=== PATIENT | male | born 1945 | race Caucasian/White ===

== ENCOUNTER → 2018-12-10 07:04 | Outpatient (CLI) | payer MEDICARE, SELFPAY ==
--- NOTE | 2018-12-10 | DI.MRI.S_ITS ---
PROCEDURE: MR LUMBAR SPINE WO CON INDICATIONS: LUMBAR SPINE PAIN TECHNIQUE: Noncontrast sagittal T1 spin echo and T2 fast echo, sagittal STIR, axial T1 and T2 fast spin echo through the lumbar spine. In cases with scoliosis, additional coronal T2 fast spin echo may be performed. COMPARISON: [facility], CT, ANGIOGRAPHY CHEST AND ABDOMEN, 06/03/2017, 11:06. [facility], MR, L-SPINE WITHOUT CONTRAST, 07/14/2015, 8:52. FINDINGS: Image quality: Excellent. Alignment and Curvature: There is normal bony alignment. Bone Marrow: Marrow is of normal overall signal. Chronic appearing L2 compression fracture. There is also superimposed superior endplate Schmorl's node with mild adjacent marrow edema. No acute vertebral body compression fractures. Spinal Cord: Conus medullaris terminates at the L1 level. Visualized cord demonstrates normal signal and size. Paraspinous Soft Tissues: No paravertebral masses. There is dependent subcutaneous soft tissue edema from the level of L2-S1. Multiple bilateral presumed renal cysts all these findings are technically indeterminate. L1-L2: Broad-based posterior disc bulge and bilateral facet arthropathy. Mild central canal narrowing. The lateral recesses appear patent. No foraminal stenosis. L2-L3: Bilateral facet arthropathy. No canal stenosis or lateral recesses appear patent. No foraminal narrowing. L3-L4: Bilateral facet arthropathy. No central canal narrowing. Mild partial effacement of the lateral recess however this appears symmetric. No foraminal stenosis. L4-L5: Broad-based posterior disc bulge and subtle posterior annular fissure. Bilateral facet arthropathy. No residual canal stenosis, status post posterior decompression. Asymmetric narrowing of the lateral recesses, right greater than left however this is probably unchanged since 07/14/15. Mild bilateral foraminal narrowing. No definite interval change L5-S1: Broad-based posterior disc bulge and bilateral facet arthropathy. No central canal narrowing. Lateral recesses appear grossly patent. No foraminal stenoses. IMPRESSION: No residual canal stenosis at L4-L5, status post posterior decompression. Asymmetric, right greater than left subarticular narrowing at L4-L5, however unchanged appearance since prior study as above. Mild bilateral L4-L5 foraminal narrowing also unchanged. Mild chronic appearing L2 compression fracture (although new since prior study dated 06/03/17). Superimposed possibly subacute versus acute superior endplate Schmorl's node. Dictated by: Earl Dueñas M.D. on 12/10/2018 at 9:30 Approved by: Earl Dueñas M.D. on 12/10/2018 at 9:39
== END ==
PROVIDERS: PCP Physician Assistant; Visit Provider Internal Medicine
DX: M54.5 Low back pain (principal); M48.061 Spinal stenosis, lumbar region without neurogenic claudication; M48.56XA Collapsed vertebra, not elsewhere classified, lumbar region, initial encounter for fracture
CPT/HCPCS: 72148

== ENCOUNTER → 2019-01-01 11:40 | Outpatient (CLI) | payer MEDICARE, SELFPAY ==
--- NOTE | 2019-01-01 | DI.RAD.S_ITS ---
PROCEDURE: XR ANKLE RT 2V INDICATIONS: BILATERAL ANKLE PAIN TECHNIQUE: 2 views of the ankle were acquired. COMPARISON: None. FINDINGS: Bones: No fractures or dislocations. Ankle mortise is normally aligned. No suspicious bony lesions. Calcaneal spurring. Soft tissues: No tibiotalar joint effusion. Achilles tendon appears normal. Soft tissue swelling over the lateral malleolus. IMPRESSION: 1. No fracture or dislocation. 2. Soft tissue swelling over the lateral malleolus. 3. Calcaneal spurring. Dictated by: Yoli Hawthorne M.D. on 01/01/2019 at 15:53 Approved by: Yoli Hawthorne M.D. on 01/01/2019 at 15:55
--- NOTE | 2019-01-01 | DI.RAD.S_ITS ---
PROCEDURE: XR ANKLE LT 2V INDICATIONS: BILATERAL ANKLE PAIN TECHNIQUE: 2 views of the ankle were acquired. COMPARISON: None. FINDINGS: Bones: No acute fractures or dislocations. Mild cortical irregularity of the lateral malleolus is probably sequelae of old injury. Ankle mortise is normally aligned. No suspicious bony lesions. Soft tissues: No tibiotalar joint effusion. Achilles tendon appears normal. IMPRESSION: No fracture or dislocation. Dictated by: Yoli Hawthorne M.D. on 01/01/2019 at 15:52 Approved by: Yoli Hawthorne M.D. on 01/01/2019 at 15:53
== END ==
PROVIDERS: PCP Physician Assistant; Visit Provider Physician Assistant
DX: M25.572 Pain in left ankle and joints of left foot (principal); M25.571 Pain in right ankle and joints of right foot; M77.31 Calcaneal spur, right foot; M79.89 Other specified soft tissue disorders
CPT/HCPCS: 73600

== ENCOUNTER → 2019-01-16 09:43 | Outpatient (CLI) | payer MEDICARE, SELFPAY ==
--- NOTE | 2019-01-16 | DI.RAD.S_ITS ---
PROCEDURE: XR FOOT RT MIN 3V INDICATIONS: RT FOOT PAIN TECHNIQUE: Pre-views of the foot were acquired. COMPARISON: None. FINDINGS: Bones: No fractures or dislocations. No suspicious bony lesions. Soft tissues: No tibiotalar joint effusion. Achilles tendon appears normal. IMPRESSION: A definite source of right foot pain is not found. Incidental is made of a small plantar fascia insertion spur at the posterior calcaneus. Dictated by: Reinier Randle M.D. on 01/16/2019 at 12:37 Approved by: Reinier Randle M.D. on 01/16/2019 at 12:38
== END ==
PROVIDERS: PCP Physician Assistant; Visit Provider Internal Medicine
DX: M79.671 Pain in right foot (principal); M77.31 Calcaneal spur, right foot; G89.4 Chronic pain syndrome
CPT/HCPCS: 73630

== ENCOUNTER → 2019-01-22 14:50 | Outpatient (CLI) | payer MEDICARE, SELFPAY ==
--- NOTE | 2019-01-22 | DI.US.S_ITS ---
PROCEDURE: US PERIPH VENOUS LOW EXTREM RT INDICATIONS: PAIN IN RIGHT LOWER EXTREMITY TECHNIQUE: Real-time imaging, as well as color and pulse Doppler interrogation, were performed of the lower extremity deep veins from the inguinal ligament to the popliteal fossa. COMPARISON: None. FINDINGS: The common femoral, femoral and popliteal veins are normally compressible, and free of intraluminal thrombus. Color and pulse Doppler demonstrate normal phasic intraluminal flow. There is normal augmentation response to distal compression maneuver. IMPRESSION: No deep venous thrombosis in the right lower extremity. Dictated by: Yoli Hawthorne M.D. on 01/22/2019 at 17:53 Approved by: Yoli Hawthorne M.D. on 01/22/2019 at 17:53
== END ==
PROVIDERS: PCP Physician Assistant; Visit Provider Internal Medicine
DX: M79.604 Pain in right leg (principal)
CPT/HCPCS: 93971

== ENCOUNTER → 2019-02-11 09:37 | Outpatient (CLI) | payer MEDICARE, SELFPAY ==
--- NOTE | 2019-02-11 | DI.US.S_ITS ---
PROCEDURE: US ABDOMEN COMPLETE INDICATIONS: ABDOMINAL PAIN TECHNIQUE: Real-time scanning was performed of the abdominal and retroperitoneal organs, with image documentation. COMPARISON: [facility], US, ABDOMEN COMPLETE, 06/03/2017, 10:57. FINDINGS: Liver: Within the region of the shahana hepatis, there is ill-defined hyperechoic focus measuring 3.3 x 1.4 x 1.7 cm. No definite internal vascularity. Gallbladder: Multiple echogenic mobile gallstones are present measuring up to 1 cm. There is borderline wall thickening measuring 3-4 mm. However no sonographic Daley sign or bile duct dilatation Biliary ducts: Intrahepatic bile ducts are non-dilated. Extrahepatic bile duct caliber measures 4 mm. Normal is 6-7 mm or less in diameter, or 10 mm or less post-cholecystectomy. Pancreas: Visualized portions of the pancreas are mildly heterogeneous, nonspecific. Pancreatic duct measures 2 mm. Spleen: Spleen is normal in size and homogeneous in echotexture. Kidneys: Kidneys are normal in size and echotexture. Right kidney measures 11.6 cm long; left kidney measures 11.9 cm long. No hydronephrosis or nephrolithiasis. No solid masses. Right renal cyst measuring 1.2 cm with mural calcification. 1.8 x 2.9 x 1.9 cm hypoechoic lesion involving the left kidney at the hilum/renal pelvis with associated calcifications. Aorta: Visualized aorta is normal in caliber at less than 3 cm. Iliacs: Scattered by shadowing bowel gas IVC: Intrahepatic inferior vena cava is patent. Miscellaneous: No free abdominal fluid. IMPRESSION: Cholelithiasis. Borderline gallbladder wall thickening however this finding is technically age indeterminate. No sonographic Daley's sign or bile duct dilatation is seen although recommend correlation with LFTs. Chronic or acute on chronic cholecystitis cannot be excluded. Hyperechoic region in the region of the shahana hepatis, possibly focal fatty infiltration versus hemangioma. This could be monitored with long-term ultrasound surveillance at 6 month intervals for 2 years to document stability. Complex bilateral renal cysts. Given the absence of any prior comparison studies and that these may be new since the prior study, recommend continued surveillance with 6 month ultrasound to document stability. If clinically warranted, dedicated cross-sectional imaging with CT could be considered. Dictated by: Earl Dueñas M.D. on 02/11/2019 at 12:06 Approved by: Earl Dueñas M.D. on 02/11/2019 at 12:16
== END ==
PROVIDERS: PCP Physician Assistant; Visit Provider Internal Medicine
DX: R10.9 Unspecified abdominal pain (principal); N28.1 Cyst of kidney, acquired; K80.20 Calculus of gallbladder without cholecystitis without obstruction; M48.061 Spinal stenosis, lumbar region without neurogenic claudication
CPT/HCPCS: 76700

== ENCOUNTER → 2019-02-23 10:58 | Outpatient (CLI) | payer MEDICARE, SELFPAY ==
--- NOTE | 2019-02-23 | DI.US.S_ITS ---
PROCEDURE: US PERIP VENOUS LOW EXTREM RT INDICATIONS: EDEMA TECHNIQUE: Real-time imaging, as well as color and pulse Doppler interrogation, were performed of the lower extremity deep veins from the inguinal ligament to the popliteal fossa. COMPARISON: [facility], , [facility] VENOUS LOW EXTREM RT, 01/22/2019, 16:11. FINDINGS: The common femoral, femoral and popliteal veins are normally compressible, and free of intraluminal thrombus. Color and pulse Doppler demonstrate normal phasic intraluminal flow. There is normal augmentation response to distal compression maneuver. IMPRESSION: No evidence of DVT in the visualized right lower extremity veins. Dictated by: Juan Pérez M.D. on 02/23/2019 at 12:22 Approved by: Juan Pérez M.D. on 02/23/2019 at 12:22
[2019-02-23 13:08] LABS: Erythrocyte Sedimentation Rate 5 MM/HR (0-15)
[2019-02-23 13:43] LABS: D Dimer < 200 ng/mL (<230)
[2019-02-23 15:52] LABS: BUN Creatinine Ratio 18.3 (6-22); Blood Urea Nitrogen 11 mg/dL (9-20); Calcium 9.5 mg/dL (8.4-10.2); Carbon Dioxide 29 mmol/L (22-32); Chloride 105 mmol/L (98-107); Estimated Glomerular Filt Rate > 60.0 mL/min (>60); Glucose 89 mg/dL (80-110); HEMOLYSIS < 15 (0-50); Potassium 4.6 mmol/L (3.4-5.1); Sodium 142 mmol/L (137-145); Uric Acid 3.2 mg/dL (3.5-8.5)
[2019-02-23 15:53] LABS: C-Reactive Protein Quant < 0.5 mg/dL (<1.0)
== END ==
PROVIDERS: PCP Internal Medicine; Visit Provider Internal Medicine
DX: M79.671 Pain in right foot (principal); R60.9 Edema, unspecified
CPT/HCPCS: 36415; 80048; 84550; 85379; 85651; 86140; 93971

== ENCOUNTER → 2019-03-10 11:56 | Outpatient (CLI) | payer MEDICARE, SELFPAY ==
--- NOTE | 2019-03-10 12:02 | DI.CT.S_ITS ---
PROCEDURE: CT ABDOMEN PELVIS W CON INDICATIONS: Renal cysts. Right upper quadrant abdominal pain TECHNIQUE: After the administration of oral and intravenous contrast, 5 mm thick sections acquired from the diaphragms to the symphysis. 5 mm thick coronal and sagittal reformats were performed. For radiation dose reduction, the following was used: automated exposure control, adjustment of mA and/or kV according to patient size. COMPARISON: [facility], MR, L-SPINE WITHOUT CONTRAST, 07/14/2015, 8:52. [facility], CT, KIDNEY/ URETER/BLADDER, 09/12/2016, 7:22. [facility], US, US ABDOMEN COMPLETE, 02/11/2019, 10:04. [facility], CT, CT CHEST WO CONTRAST, 11/27/2016, 10:00 AM. [facility], CT, ANGIOGRAPHY CHEST AND ABDOMEN, 06/03/2017, 11:06. [facility], CT, CT ANGIO CHEST ABD, 10/28/2016, 2:26. [facility], CT, THORAX WITHOUT CONTRAST, 04/26/2017, 16:04. FINDINGS: Image quality: Excellent. ABDOMEN: Lung bases: There is a 1.5 cm nodule in the right lung base, stable, likely benign. Heart size is normal. Trace pericardial effusion may be physiological. There is a small hiatal hernia. Solid organs: There is mild hepatic steatosis. Liver is normal in size and enhancement. Gallbladder contains gallstones. No collateral thickening or pericholecystic fluid. Biliary system is non-dilated. Pancreas enhances normally. Spleen is normal in size and enhancement. No adrenal nodules. Kidneys are normal in size and enhancement, without hydronephrosis. Multiple nonobstructive renal calculi are again noted. Indeterminate low density nodules in kidneys are most likely cysts. Peritoneum and bowel: Stomach, small bowel, and colon loops are normal in caliber and wall thickness. Normal appendix. There are numerous colonic diverticula. No free fluid or air. Nodes and vessels: There is a matched in the anterior abdominal wall consistent with prior ventral hernia repair. No retroperitoneal or mesenteric adenopathy. Aorta and inferior vena cava are normal in caliber. There is moderate atherosclerotic calcification. Miscellaneous: No ventral hernias. PELVIS: Genitourinary: Bladder wall appears mildly thickened. Calcifications are again noted in prostate. Miscellaneous: No inguinal hernias or adenopathy. Bones: No suspicious bony lesions. Moderate chronic compression fracture of L2 vertebral body. 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 IMPRESSION: 1. Cholelithiasis. No CT findings to suggest acute cholecystitis. 2. Bilateral nonobstructive renal calculi. 3. Bilateral low-density renal nodules are most likely cysts. 4. Small hiatal hernia. 5. Diverticulosis without acute diverticulitis. 6. Mild bladder wall thickening. Differential diagnoses include bladder outlet obstruction versus mild cystitis. 7. Mild chronic L2 vertebral body compression fracture. 8. Stable right lower lobe lung nodule. Dictated by: Yoli Hawthorne M.D. on 03/10/2019 at 16:14 Approved by: Yoli Hawthorne M.D. on 03/10/2019 at 17:27
== END ==
PROVIDERS: PCP Internal Medicine; Visit Provider Internal Medicine
DX: R10.11 Right upper quadrant pain (principal); N28.1 Cyst of kidney, acquired; K44.9 Diaphragmatic hernia without obstruction or gangrene; K76.0 Fatty (change of) liver, not elsewhere classified; K80.20 Calculus of gallbladder without cholecystitis without obstruction; K57.90 Diverticulosis of intestine, part unspecified, without perforation or abscess without bleeding; N20.0 Calculus of kidney; R91.1 Solitary pulmonary nodule; M48.56XA Collapsed vertebra, not elsewhere classified, lumbar region, initial encounter for fracture
CPT/HCPCS: 74177; Q9967

== ENCOUNTER → 2019-04-03 08:52 | Outpatient (CLI) | payer MEDICARE, SELFPAY ==
--- NOTE | 2019-04-03 | DI.NM.S_ITS ---
PROCEDURE: NM HIDA WITH CCK PHARMACEUTICAL: 5.5 mCi Tc-99m mebrofenin IV; 1.7 mcg CCK IV. INDICATIONS: Right upper quadrant pain TECHNIQUE: Following intravenous administration of Tc-99m mebrofenin, sequential anterior abdominal images were obtained. To evaluate the contractile response of the gallbladder in response to Cholecystokinin (CCK), sincalide (0.02 ?g/kg) was administered by slow intravenous infusion approximately 60 minutes after the administration of the radiopharmaceutical. Sequential imaging was continued for 30 minutes after the start of CCK infusion. Gallbladder ejection fraction was calculated. COMPARISON: [facility], US, US ABDOMEN COMPLETE, 02/11/2019, 10:04. [facility], CT, CT ABDOMEN PELVIS W CON, 03/10/2019, 12:48. FINDINGS: Biliary scan: There is normal tracer uptake and excretion by the liver. There is normal visualization of the intrahepatic ducts, common bile duct, and gallbladder. There is normal tracer transit into the duodenum. CCK stimulation: There is normal contractile response of the gallbladder to CCK infusion. The calculated gallbladder ejection fraction is 90%; normal values are above 35%. IMPRESSION: 1. Normal filling of gallbladder. No evidence for acute cholecystitis. 2. Normal contractile response of gallbladder to CCK stimulation. Dictated by: Yoli Hawthorne M.D. on 04/03/2019 at 11:59 Approved by: Yoli Hawthorne M.D. on 04/03/2019 at 12:03
== END ==
PROVIDERS: PCP Internal Medicine; Visit Provider Internal Medicine
DX: R10.11 Right upper quadrant pain (principal)
CPT/HCPCS: 78227; A9537; J2805

== ENCOUNTER → 2019-04-16 10:15 | Outpatient (CLI) | payer MEDICARE, SELFPAY ==
[2019-04-16 11:50] LABS: HEMOLYSIS < 15 (0-50); Iron 92 ug/dL (49-181)
[2019-04-16 12:01] LABS: Percent Iron Saturation 26 % (20-50); Total Iron Binding Capacity 357 ug/dL (261-462); Transferrin 269 mg/dL (206-381)
== END ==
PROVIDERS: PCP Internal Medicine; Visit Provider Internal Medicine
DX: D75.9 Disease of blood and blood-forming organs, unspecified (principal)
CPT/HCPCS: 36415; 82728; 83540; 83550

== ENCOUNTER → 2019-07-06 09:56 | Outpatient (CLI) | payer MEDICARE, SELFPAY ==
--- NOTE | 2019-07-06 | DI.RAD.S_ITS ---
PROCEDURE: XR KUB INDICATIONS: Calculus of kidney TECHNIQUE: One view of the abdomen acquired. COMPARISON: [facility], CT, CT ABDOMEN PELVIS W CON, 03/10/2019, 12:48. [facility], CR, KUB XRAY (1 VIEW ABDOMEN), 10/02/2016, 10:00. FINDINGS: Surgical changes and devices: None. Bowel: Bowel gas pattern is normal. Soft tissues: No suspicious new abdominal calcifications. A previously identified calcification seen on CT scan in 03/10/19 at the upper third collecting system of the left kidney is again noted measuring 4 x 9 mm. Visualized solid organ contours appear normal in size. Bones: No suspicious bony lesions. IMPRESSION: The amount of bowel gas and stool within the abdomen and pelvis is mildly increased from the comparison study in 2015, which reduces the ability to detect small new calcifications. A previously present left upper renal collecting system calculus seen by CT scanning again be seen by plain film imaging and measures approximately 4 x 9 mm. Dictated by: Reinier Randle M.D. on 07/06/2019 at 10:11 Approved by: Reinier Randle M.D. on 07/06/2019 at 10:14
== END ==
PROVIDERS: PCP Internal Medicine; Visit Provider Specialist
DX: N20.0 Calculus of kidney (principal)
CPT/HCPCS: 74018

== ENCOUNTER → 2019-11-03 09:36 | Outpatient (CLI) | payer MEDICARE, SELFPAY ==
--- NOTE | 2019-11-03 | DI.RAD.S_ITS ---
PROCEDURE: XR KNEE STANDING BI INDICATIONS: right knee pain TECHNIQUE: AP weight bearing view of the of both knees. COMPARISON: [facility], CR, XR KNEE RT 3V, 11/03/2019, 9:41. FINDINGS: Bones: No acute fractures or dislocations. Mild bilateral symmetric joint space osteophyte formation with weightbearing. Soft tissues: No knee joint effusions. No suspicious soft tissue calcification. IMPRESSION: Mild degenerative joint disease. Dictated by: Yoli Hawthorne M.D. on 11/03/2019 at 11:31 Approved by: Yoli Hawthorne M.D. on 11/03/2019 at 11:39
--- NOTE | 2019-11-03 | DI.RAD.S_ITS ---
PROCEDURE: XR KNEE RT 3V INDICATIONS: right knee pain TECHNIQUE: 3 views of the knee were acquired. COMPARISON: [facility], CR, XR KNEE STANDING BI, 11/03/2019, 9:44. FINDINGS: Bones: No fractures or dislocations. No suspicious bony lesions. Soft tissues: No joint effusion. Vascular calcifications consistent with arthrosclerosis. Calcification in the area of MCL likely sequelae of remote injury. IMPRESSION: 1. No acute osseous injuries. 2. Suspect remote MCL injury. Dictated by: Yoli Hawthorne M.D. on 11/03/2019 at 11:16 Approved by: Yoli Hawthorne M.D. on 11/03/2019 at 11:22
== END ==
PROVIDERS: PCP Internal Medicine; Visit Provider Internal Medicine
DX: M25.561 Pain in right knee (principal); M17.11 Unilateral primary osteoarthritis, right knee
CPT/HCPCS: 73562; 73565

== ENCOUNTER 2019-12-16 10:34 | Observation (INO) | payer MEDICARE, SELFPAY ==
[2019-12-16] VITALS (11 sets, daily range): BP systolic 151–228; BP diastolic 54–88; PULSE 45–80; RESP 16–22; TEMP 36.5–37.4; O2SAT 94–100; BMI 30.4
--- NOTE | 2019-12-16 10:48 | DI.CT.S_ITS ---
PROCEDURE: CT ABDOMEN PELVIS W CON INDICATIONS: abdominal pain, lower abd more on right, vomiting x 2 days TECHNIQUE: After the administration of intravenous contrast, 5 mm thick sections acquired from the diaphragm to the symphysis. 5 mm coronal and sagittal reformats were acquired. For radiation dose reduction, the following was used: automated exposure control, adjustment of mA and/or kV according to patient size. COMPARISON: None. FINDINGS: Image quality: Excellent. ABDOMEN: Lung bases: Lung bases are clear. Heart size is normal. Solid organs: Liver is normal in size and enhancement. Gallbladder contains several 7 mm gallstones, none of which have dense calcification, and no biliary distention is associated. Biliary system is non dilated. Pancreas enhances normally. Spleen is normal in size and enhancement. No adrenal nodules. Kidneys demonstrate normal size and enhancement, without hydronephrosis. Bilateral renal collecting system calculi are present, with the largest renal calculi identified at the upper third collecting system of the left kidney, and no renal cortical inflammation is associated. Peritoneum and bowel: Bowel loops demonstrate normal wall thickness and caliber. No free fluid or air. Nodes and vessels: No retroperitoneal or mesenteric adenopathy by size criteria. Aorta and inferior vena cava are normal in size. Miscellaneous: No ventral hernias. PELVIS: Genitourinary: Bladder wall thickness is normal. Miscellaneous: No inguinal hernias or adenopathy. Extensive sigmoid diverticulosis without acute diverticulitis. A normal or abnormal appendix could not be located. Bones: No suspicious bony lesions. No vertebral body compression fractures. IMPRESSION: 1. Gallstones present within the gallbladder lumen are not densely calcified, and measure up to approximately 7 mm in maximal dimension. Biliary distention is not associated. The gallbladder does not appear inflamed. 2. Bilateral densely calcified renal collecting system calculi are present, measuring up to 8 x 10 mm at the upper third collecting system of the left kidney, but no urinary tract obstruction is found and a ureteral stone is not suspected. 3. A normal or abnormal appendix could not be seen, sigmoid diverticulosis is present without acute diverticulitis. Dictated by: Reinier Randle M.D. on 12/16/2019 at 11:36 Approved by: Reinier Randle M.D. on 12/16/2019 at 11:40
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
[2019-12-16 10:57] LABS: Add Manual Diff / Slide Review NO; Basophils Absolute Auto 0 /uL (0-100); Basophils Percent Auto 0.5 % (0-2); Eosinophils Absolute Auto 0 /uL (0-450); Eosinophils Percent Auto 0.2 % (2-4); Hematocrit 48.4 % (41-53); Hemoglobin 16.8 g/dL (13.5-17.5); Lymphocytes Absolute Auto 900 /uL (1100-4500); Lymphocytes Percent Auto 10.6 % (25-40); Mean Corpuscular HGB Conc 34.7 % (30-36); Mean Corpuscular Hemoglobin 31.8 PG (26-34); Mean Corpuscular Volume 91.5 fL (80-100); Monocytes Absolute Auto 500 /uL (0-900); Neutrophils Absolute Auto 7500 /uL (1500-7000); Neutrophils Percent Auto 83.7 % (50-75); Platelet Count 280 X10^3/uL (150-400); Red Cell Distribution Width 13.8 % (11.6-14.8)
[2019-12-16 11:08] LABS: Alanine Aminotransferase 22 IU/L (<50); Albumin 4.7 g/dL (3.5-5.0); Albumin Globulin Ratio 1.4 (1.0-2.8); Alkaline Phosphatase 104 U/L (38-126); Aspartate Aminotransferase 35 IU/L (17-59); BUN Creatinine Ratio 26.7 (6-22); Bilirubin Total 1.3 mg/dL (0.2-1.3); Blood Urea Nitrogen 16 mg/dL (9-20); Calcium 9.7 mg/dL (8.4-10.2); Carbon Dioxide 28 mmol/L (22-32); Chloride 106 mmol/L (98-107); Estimated Glomerular Filt Rate > 60.0 mL/min (>60); Globulin 3.4 g/dL (1.7-4.1); Glucose 117 mg/dL (80-110); HEMOLYSIS 35 (0-50); Lactate (Lactic Acid) 1.6 mmol/L (0.7-2.1); Lipase 77 U/L (23-300); Potassium 3.7 mmol/L (3.4-5.1); Sodium 144 mmol/L (137-145); Total Protein 8.1 g/dL (6.3-8.2)
[2019-12-16] MEDS: SODIUM CHLORIDE 0.9% 1,000 ML 1000 ML IV ×2 (11:15→14:23)
[2019-12-16] MEDS: ONDANSETRON 4 MG/2 ML INJ IV ×3 (11:15→23:24)
[2019-12-16] MEDS: HYDROMORPHONE 0.5 MG INJ IV ×3 (11:40→16:42)
--- NOTE | 2019-12-16 12:05 | DI.US.S_ITS ---
PROCEDURE: US ABDOMEN LIMITED INDICATIONS: PAIN TECHNIQUE: Real-time focused scanning was performed of the abdomen, with image documentation. COMPARISON: [facility], CT, CT ABDOMEN PELVIS W CON, 12/16/2019, 11:14. FINDINGS: 2 mobile gallstones are seen within the gallbladder. Sludge is also seen within the gallbladder. The gallbladder wall is minimally thickened at 3.7 mm. There is minimal pericholecystic fluid seen. The sonographic Daley sign is positive. There is no biliary dilatation, the common bile duct measures 6 mm. The liver is normal in size and demonstrates no focal lesions. The pancreas is not seen. IMPRESSION: These imaging findings are suspicious for cholecystitis, with gallstones and sludge, minimal gallbladder wall thickening, minimal pericholecystic fluid, and a positive sonographic Daley sign. Dictated by: Arnaldo Colbert M.D. on 12/16/2019 at 13:18 Approved by: Arnaldo Colbert M.D. on 12/16/2019 at 13:19
[2019-12-16] MEDS: METOCLOPRAMIDE 10 MG/2 ML INJ IV (12:18)
[2019-12-16 13:14] LABS: Calcium Oxalate Crystals Urine Few; RBC Urine 1-5/HPF (0-5/HPF); Squamous Epithelial Cell Urine 0-1 /HPF (0-5/HPF); WBC Urine 1-5/HPF (0-5/HPF)
[2019-12-16 13:15] LABS: Amorphous Sediment Urine 1+; Bacteria Urine Occasional (0-1); Culture Indicated Urine Specimen Cultured; Mucus Urine 1+ (Negative)
[2019-12-16 13:33] LABS: Creatine Kinase 130 U/L (55-170)
[2019-12-16 13:46] LABS: Troponin I < 0.012 ng/mL (0.01-0.034)
[2019-12-16 13:49] LABS: CKMB % Relative Index 1.1 % (1.5-5.0); Creatine Kinase MB 1.47 ng/mL (<2.37)
[2019-12-16] MEDS: PIPERACILLIN-TAZO 3.375 GM/50 ML FROZ.PIGGY IV ×2 (14:22→21:48)
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
--- NOTE | 2019-12-16 16:39 | PC.NURSE ---
Spoke w/ Dr. Arizmendi, changed orders for pain medication. Receiving RN made aware.
--- NOTE | 2019-12-16 17:11 | PC.NURSE ---
[place] shift note: Patient admitted to room 203 fom ED, awake, alert, and pleasant. Ambulated from WC to bed with steady gait. Tolerating clear liquid diet, abdomen soft, active BS, and tender to epigastric region. Afebrile. Oriented to room, environment and plan of care. Call light within reach.
[2019-12-16] MEDS: SODIUM CHLORIDE 0.9% 1,000 ML 150 ML IV (17:22)
[2019-12-16] MEDS: OXYCODONE IR 5 MG TABLET 15 MG PO ×2 (17:22→23:20)
[2019-12-17] VITALS (20 sets, daily range): BP systolic 153–184; BP diastolic 50–82; PULSE 54–70; RESP 10–18; TEMP 36.2–36.9; O2SAT 90–98; BMI 30.4
--- NOTE | 2019-12-17 | PATH_ITS ---
[facility] Accession Number: [id number] . 01 Material submitted: . gallbladder - GALLBLADDER AND CONTENTS . 01 Clinical history: . N/V X2 DAYS . 02 Diagnosis: Gallbladder and Contents: Acute and chronic cholecystitis and cholelithiasis. One cystic duct lymph node with a slightly distorted architecture. Hemepath consultation pending; those results will be reported as an addendum. MRV 12/21/2019 1221 Local . 02 Electronically signed: . Romy Loving MD, Pathologist NPI- [id number] . 01 Gross description: . Received in formalin, labeled gallbladder + contents, is an intact gallbladder (length-9.8 cm, diameter-4.0 cm) with coombs-white smooth shiny serosa and a patent cystic duct. A possible 0.7 x 0.5 x 0.4 cm lymph node is identified. The lumen contains brown-green turbid gelatinous bile and multiple brown friable calculi (1.7 x 1.2 x 0.7 cm in aggregate). The mucosa is luu, smooth and flat. The wall is up to 0.1 cm thick. No nodules, masses or lesions are identified. Section code: (A1) cystic duct resection margin and two serial sections from the body; (A2) two longitudinal sections from the fundus; (A3) one bisected possible lymph node. ([id number]) /MRV 12/18/2019 1036 Local . 02 Pathologist provided ICD-10: K81.2 . 02 CPT . 072955 Performed at: [address] [facility], [place], [place] [id number] MD Terence Thornton MD Phone: [phone] Performed at: [address] [facility] [place] [address] [place] [id number] MD Lana Lopez MD Phone: [phone]
--- NOTE | 2019-12-17 01:23 | PC.NURSE ---
Addendum entered by Malena Lizama R.N. 12/17/19 06:07: Has slept most of shift. Does complain of nausea this morning but without emesis; medicated with Zofran. Up to bathroom with SBA and voided 225cc dark kelly urine. Passed flatus but no BM. Addendum entered by Malena Lizama R.N. 12/17/19 03:36: Medicated with Oxycodone for complaint of 8/10 back pain and 6/10 abdominal pain. Original Note: 2330 Patient is alert and oriented. Breath sounds CTA with RA sat of 95%. HRR but bradycardic in 50's. BP elevated at 151/64. Complains of nausea so medicated with Zofran after calling Dr Arizmendi for change in frequency. BT present and is passing flatus. Abdomen is tender with diffuse tenderness which is greater in upper quads. Does complain of 8/10 chronic back pain so medicated with Oxycodone. Has been voiding per urinal; denies dysuria, frequency or urgency. Able to turn self in bed. When out of bed is provided SBA for safety. Wearing bilateral calf SCD's. Does have chronic bilateral foot tingling. Is NPO after 0000 except for meds; patient verbalizes understanding. Fall risk score is moderate; bed alarm is activated.
[2019-12-17] MEDS: SODIUM CHLORIDE 0.9% 1,000 ML 150 ML IV (02:32)
[2019-12-17] MEDS: OXYCODONE IR 5 MG TABLET 15 MG PO ×3 (03:33→16:27)
[2019-12-17] MEDS: PIPERACILLIN-TAZO 3.375 GM/50 ML FROZ.PIGGY IV (05:50)
[2019-12-17] MEDS: ONDANSETRON 4 MG/2 ML INJ IV ×2 (05:58→09:15)
[2019-12-17 06:01] LABS: Alanine Aminotransferase 17 IU/L (<50); Albumin 3.3 g/dL (3.5-5.0); Albumin Globulin Ratio 1.2 (1.0-2.8); Alkaline Phosphatase 61 U/L (38-126); Aspartate Aminotransferase 26 IU/L (17-59); BUN Creatinine Ratio 21.7 (6-22); Bilirubin Total 0.8 mg/dL (0.2-1.3); Blood Urea Nitrogen 13 mg/dL (9-20); Calcium 8.3 mg/dL (8.4-10.2); Carbon Dioxide 25 mmol/L (22-32); Chloride 109 mmol/L (98-107); Estimated Glomerular Filt Rate > 60.0 mL/min (>60); Globulin 2.7 g/dL (1.7-4.1); Glucose 98 mg/dL (80-110); HEMOLYSIS 35 (0-50); Potassium 3.7 mmol/L (3.4-5.1); Sodium 140 mmol/L (137-145)
[2019-12-17] MEDS: LACTATED RINGERS 1,000 ML 42 ML IV ×2 (07:20→09:00)
[2019-12-17] MEDS: CELECOXIB 200 MG CAPSULE 400 MG PO (07:26)
[2019-12-17] MEDS: GABAPENTIN 300 MG CAPSULE PO (07:26)
[2019-12-17] MEDS: ACETAMINOPHEN 325 MG TABLET 975 MG PO (07:26)
--- NOTE | 2019-12-17 07:29 | PM.PREOP ---
Pre-operative Note Interval Note History & Physical reviewed/Exam performed by Physician: Yes Changes to H&P: No
--- NOTE | 2019-12-17 07:29 | SUR.HOLD ---
Pt nauseated Dr. Ambrose aware, still wanted po meds given, pt medicated as instructed.
--- NOTE | 2019-12-17 07:43 | PC.NURSE ---
Addendum entered by Latricia Mackay R.N. 12/17/19 12:34: MS/GI/PAIN - pt sat up to dangle position for lunch, denies nausea, ate approx 25%, stated I feel full, stood w/standby assist to void, declined chair, ret to bed to nap, stated the earlier oxycodone was providing adequate relief and would like to nap. Addendum entered by Latricia Mackay R.N. 12/17/19 11:43: /PAIN/IV - Per Dr. Arizmendi, amaya the ivf, pt reports pain continues at 7 on scale 0/10 and earlier percolone only provided minimal relief, pt stood at bedside and voided, when 02 removed 02 sat 86%, replaced 4l and 96%, enc db and 02 reduced to 2l, given 15mg po oxycodone with juice and crackers. Addendum entered by Latricia Mackay R.N. 12/17/19 11:05: POST OP ARRIVAL 1020 - pt is awake, drowsy, was given 5mg po oxycodone in pacu prior to transport, states on arrival his back and abd discomfort is 7 on scale 0/10, repositioned l side for comfort, 02 90% ra, was on 4L 02 prior to transport and replaced 4l [place] [id number]%, steristrips open to air, cdi. Original Note: AM NOTE - 0700 pacu arrived and pt was transported to surgery.
--- NOTE | 2019-12-17 07:54 | SUR.OPER ---
Supine on padded OR bed, head on pillow, safety belt at thigh, left arm padded and tucked at side. Right arm secured on padded arm oard <90 degrees abduction. Legs uncrossed. Padded footboard in place. Tape over blanket to secure lower legs.
[2019-12-17] MEDS: BUPIVACAINE 0.25% (PF) VIAL 30 ML INJ (08:00)
--- NOTE | 2019-12-17 09:12 | PM.OP.1 ---
Operative Date/Time/Diagnoses Date of procedure: 12/17/19 Time of procedure: 09:12 Pre-op diagnosis: acute cholecystitis Post-op diagnosis: same Procedure & Clinicians Procedure: Laparoscopic cholecystectomy Same procedure as scheduled: Yes Indications: 74-year-old man presented with 2 days of right upper quadrant pain nausea and ultrasound demonstrates acute cholecystitis. Surgeon: Celso Arizmendi Operative Notes Findings: Acute cholecystitis with fat stranding and distended gallbladder Specimen(s): none sent Estimated Blood Loss (mL): 20 Procedure in detail: The patient was brought to the operating room placed supine on the table. Bilateral lower extremity compression devices were applied. General anesthesia was induced and they were intubated with an endotracheal tube. They received 3.75 g of Zosyn prior to skin incision. A time-out was performed to ensure the correct patient procedure necessary equipment within the operating room. They were then prepped and draped in the usual sterile fashion. Infraumbilical incision was made the umbilical stalk was grasped and elevated and the fascia was sharply incised. The abdomen was entered atraumatically. A 10 mm trocar was then placed into the abdomen. Pneumoperitoneum was established. The laparoscopic camera was inserted into the abdomen inspection was made that demonstrated no evidence of injury upon entry. We then placed our working ports the 1st 5 mm port high in the epigastrium and then 2 in the right upper quadrant. The gallbladder was grasped and retracted over the liver and grasped laterally by the fundus. It was acutely inflamed and use the spinal needle to decompress it in order to grasp it better. There was also fair amount of stranding around the triangle of ELOISE The triangle of Calot was exposed meticulously. The triangle of calot was then skeletonized using hook electrocautery and demonstrated the cystic duct clearly entering the gallbladder the cystic artery and the liver and in the background. With the critical view of safety established the cystic duct was clipped twice proximally and once distally and then sharply divided and the cystic artery was taken in the same fashion. Next the gallbladder was removed from the liver bed using electro cautery. The liver bed was then inspected for hemostasis and this was achieved. The abdomen was irrigated with sterile saline and inspection was made that showed the clips in good position. The specimen was removed using Endo-Catch. The abdomen was desufflated. The the fascia of the umbilicus was closed with 0 Vicryl in a [id number] fashion. Skin incisions were irrigated and closed with 4-0 Monocryl. The wounds were sealed with Dermabond. Patient emerged from general anesthesia was extubated and transferred to the postoperative care unit missed stable condition. The sponge and instrument count at the end of the operation was correct. Complications: none Post-operative Condition: stable Disposition: Acute Care
[2019-12-17] MEDS: HYDROMORPHONE 2 MG INJ IV ×2 (09:13→09:26)
[2019-12-17] MEDS: OXYCODONE IR 5 MG TABLET PO (09:45)
[2019-12-17] MEDS: LACTATED RINGERS 1,000 ML 120 ML IV (10:31)
--- NOTE | 2019-12-17 11:52 | CM.IDA ---
Discharge Planning/Care Management CM Discharge Assessment Start: 12/17/19 11:43 Freq: Status: Active Protocol: Document 12/17/19 11:43 KINSEY (Rec: 12/17/19 11:52 KINSEY [id number]) Discharge Planning Assessment Assigned Plant Anatomist RISSA Reyna DPOA/Assigned Designee Name Sendy Tariq, spouse Contact Information [phone] Advance Directives? No Prior Living Arrangements House Household Members spouse Type of transporation used prior to Drives own vehicle admit Independent with ADL's Yes Is patient alert and oriented? Yes Comment Notes indicate pt is indp. at baseline but does have bilateral foot tingling, SBA indicated d/t moderate fall risk Barriers to Discharge No Comment Pt is in the OR today for zahraa cortes w/ Dr Arizmendi. PCP: Unknown Payer: [employer] Reviewed chart and spoke w/ PRIYANK Rome; it is likely that there will be no barriers to safe return home w/spouse to assist once pt is medically cleared after surgery. Pt is indp at baseline. DC Planning team will plan to assess DC needs further once pt returns to the acute care floor. RISSA Alvarez Discharge Plan Home Transportation Arrangement Family Referrals Initiated None needed Additional Comment Will assess further once pt returns to the acute care floor Review Status In Process
--- NOTE | 2019-12-17 17:47 | PC.NURSE ---
Assumed care of pt at 1500. Pt resting in bed during bedside hand-off. Steri-strips to abd c/d/i. MD in for rounding. D/C to home orders placed. Discharge completed by float RN including verbal and written education. IV removed. Pt dressed. arrived at approx 1740. Pt escorted off unit by this RN to private vehicle. Pt left in stable condition with all personal belongings.
== END 2019-12-17 17:40 | disposition home or self-care (01) ==
LOC: ED 14:00 → AC 14:02
PROVIDERS: Admitting Provider Surgery; Emergency Provider Emergency Medicine; Referring Provider Emergency Medicine; Visit Provider Surgery
PROC: 0FT44ZZ Resection of Gallbladder, Percutaneous Endoscopic Approach (ICD-10-PCS; CPT 47562; principal; 2019-12-17 07:45)
DX: K80.12 Calculus of gallbladder with acute and chronic cholecystitis without obstruction (principal); R10.30 Lower abdominal pain, unspecified; R11.2 Nausea with vomiting, unspecified; R19.7 Diarrhea, unspecified
CPT/HCPCS: 47562; 36415; 74177; 76705; 80053; 81003; 81015; 82550; 82553; 83605; 83690; 84484; 85025; 87040; 87086; 93005; 96361; 96365; 96366; 96375; 96376; 99219; 99285; G0378; J0330; J1100; J1170; J2405; J2543; J2704; J2765

== ENCOUNTER 2019-12-20 03:42 | Emergency (ER) | payer MEDICARE, SELFPAY ==
[2019-12-16 17:04] VITALS: BMI 30.4
--- NOTE | 2019-12-20 04:04 | DI.RAD.S_ITS ---
PROCEDURE: XR CHEST 1V INDICATIONS: suspected sepsis TECHNIQUE: One view of the chest was acquired. COMPARISON: [facility], , CHEST 1 VIEW, 06/03/2017, 10:28. FINDINGS: Surgical changes and devices: None. Lungs and pleura: Lungs are clear. No pleural effusions or pneumothorax. Mediastinum: Mediastinal contours appear normal. Heart size is normal. Bones and chest wall: No suspicious bony lesions. Overlying soft tissues appear unremarkable. IMPRESSION: Stable chest. No acute cardiopulmonary process is evident. Dictated by: Matt Parry M.D. on 12/20/2019 at 7:46 Approved by: Matt Parry M.D. on 12/20/2019 at 7:47
[2019-12-20 04:05] VITALS: BP 145/69; PULSE 119; RESP 26; TEMP 39.3; O2SAT 83; BMI 30.4
[2019-12-20 04:15] LABS: Add Manual Diff / Slide Review NO; Basophils Absolute Auto 0 /uL (0-100); Basophils Percent Auto 0.2 % (0-2); Eosinophils Absolute Auto 0 /uL (0-450); Hematocrit 42.5 % (41-53); Hemoglobin 14.7 g/dL (13.5-17.5); Lymphocytes Absolute Auto 200 /uL (1100-4500); Lymphocytes Percent Auto 3.8 % (25-40); Mean Corpuscular HGB Conc 34.7 % (30-36); Mean Corpuscular Hemoglobin 31.6 PG (26-34); Monocytes Absolute Auto 300 /uL (0-900); Monocytes Percent Auto 5.6 % (3-14); Neutrophils Absolute Auto 4800 /uL (1500-7000); Neutrophils Percent Auto 90.4 % (50-75); Platelet Count 269 X10^3/uL (150-400); Red Blood Cell Count 4.66 X10^6/uL (4.5-5.9); Red Cell Distribution Width 13.7 % (11.6-14.8); White Blood Cell Count 5.3 X10^3/uL (4.5-11.0)
[2019-12-20 04:17] LABS: INR 1.3 (0.9-1.3); Prothrombin Time 15.4 SECONDS (10.1-12.7)
[2019-12-20 04:19] LABS: PTT Partial Thromboplastin Tim 33 SECONDS (26.4-36.2)
[2019-12-20 04:21] LABS: Lactate (Lactic Acid) 2.8 mmol/L (0.7-2.1)
[2019-12-20 04:24] LABS: Alanine Aminotransferase 29 IU/L (<50); Albumin 3.5 g/dL (3.5-5.0); Albumin Globulin Ratio 1.1 (1.0-2.8); Alkaline Phosphatase 107 U/L (38-126); Aspartate Aminotransferase 29 IU/L (17-59); BUN Creatinine Ratio 31.7 (6-22); Bilirubin Total 3.5 mg/dL (0.2-1.3); Blood Urea Nitrogen 19 mg/dL (9-20); Calcium 8.7 mg/dL (8.4-10.2); Carbon Dioxide 30 mmol/L (22-32); Chloride 99 mmol/L (98-107); Estimated Glomerular Filt Rate > 60.0 mL/min (>60); Globulin 3.1 g/dL (1.7-4.1); Glucose 115 mg/dL (80-110); HEMOLYSIS < 15 (0-50); Potassium 3.1 mmol/L (3.4-5.1); Sodium 137 mmol/L (137-145); Total Protein 6.6 g/dL (6.3-8.2)
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
[2019-12-20 04:35] LABS: Erythrocyte Sedimentation Rate 59 MM/HR (0-15)
[2019-12-20 04:39] LABS: Procalcitonin 5.38 ng/mL (<0.5)
[2019-12-20 04:40] LABS: Lipase < 10 U/L (23-300)
[2019-12-20 04:53] LABS: C-Reactive Protein Quant 39.3 mg/dL (<1.0)
[2019-12-20] MEDS: MORPHINE 4 MG/ML INJ IV ×2 (04:57→09:04)
[2019-12-20] MEDS: ONDANSETRON 4 MG/2 ML INJ IV (04:57)
[2019-12-20 04:58] VITALS: TEMP 39.3
[2019-12-20] MEDS: ACETAMINOPHEN 650 MG SUPP PR (04:58)
[2019-12-20] MEDS: PIPERACILLIN-TAZO 4.5 GM/100 ML FROZ.PIGGY IV (04:58)
[2019-12-20] MEDS: SODIUM CHLORIDE 0.9% 1,000 ML 1000 ML IV ×2 (04:59→09:03)
[2019-12-20] MEDS: VANCOMYCIN 1,500 MG/300 ML FROZ.PIGGY 200 MG IV (05:27)
[2019-12-20 06:11] LABS: Reflexed Lactate in 2 Hours Y
[2019-12-20 06:37] LABS: Lactate 2HR (Lactic Acid Rflx) 2.1 mmol/L (0.7-2.1)
--- NOTE | 2019-12-20 06:42 | DI.CT.S_ITS ---
PROCEDURE: CT CHEST ABD PEL W CON INDICATIONS: abdominal pain TECHNIQUE: After the administration of intravenous contrast, 5 mm thick sections acquired from the lung apices to the symphysis. 5 mm coronal and sagittal reformats were performed, with additional 7 mm MIP reformats through the lungs. For radiation dose reduction, the following was used: automated exposure control, adjustment of mA and/or kV according to patient size. COMPARISON: [facility], CT, CT ABDOMEN PELVIS W CON, 12/16/2019, 11:14. [facility], CT, THORAX WITHOUT CONTRAST, 04/26/2017, 16:04. [facility], CT, CT ANGIO CHEST ABD, 10/28/2016, 2:26. FINDINGS: Image quality: Excellent. CHEST: Lungs and pleura: There is a small right-sided pleural effusion with associated atelectasis. There appear to be early centrilobular emphysematous changes within the lung apices. Mild consolidation within the right lung base is evident. There is a 1.4 mm nodule identified involving the central aspect of the right lower lobe, which is unchanged since 2017. There is a 4 mm nodule identified within the posterior aspect of the right lower lobe (image 17, series 2), previously measuring approximately 2 mm on the exam from 10/28/16, in retrospect. Mediastinum: Heart size is normal. There may be a trace pericardial effusion. The coronary artery atherosclerosis is present. No mediastinal or hilar adenopathy by size criteria. Thoracic aorta and central pulmonary arteries are normal in size. Esophagus is normal in caliber. No hiatal hernia. Chest wall and bones: No axillary or supraclavicular adenopathy by size criteria. Thyroid gland is not enlarged or inflamed. Age-appropriate degenerative changes of the thoracic spine are similar to the prior study. No acute compression deformities are evident. ABDOMEN: Solid organs: The liver is normal in size and density. The gallbladder is surgically absent. No intrahepatic or definitive extrahepatic biliary dilatation is evident. The spleen, adrenals, and kidneys appear to be unchanged. Multiple bilateral nonobstructing renal calculi are evident. The pancreas is within normal limits. The ureters are normal in course and caliber without intraluminal calculi evident. Peritoneum and bowel: There is a moderate amount of upper abdominal ascites around the liver and spleen. No loculated fluid collections or definite free air is evident. There may be a small hiatal hernia. The stomach is otherwise unremarkable. The small bowel loops are nondilated. Moderate amount of residual stool in is evident throughout the colon. Diverticulosis of the distal colon is evident. The appendix is well-visualized and normal. Nodes and vessels: No retroperitoneal or mesenteric adenopathy by size criteria. Aorta and inferior vena cava are normal in size. There is aortic atherosclerosis. Bones: No acute fractures or dislocations are evident. No suspicious osseous lesions are appreciated. A chronic L2 compression deformity is unchanged since the most recent examination from 12/16/19, but is new since 10/28/16. PELVIS: Genitourinary: Bladder wall thickness is normal. Coarse calcifications within the prostate gland are present. Miscellaneous: No inguinal hernias or adenopathy. A small amount of free fluid is seen within the pelvis. There is no loculated fluid collection. Bones: No suspicious bony lesions. No acute pelvic fractures are identified. IMPRESSION: 1. Small right-sided pleural effusion and associated atelectasis. Superimposed pneumonia is difficult to exclude. There is minimal left basilar atelectasis. 2. Unchanged right lower lobe pulmonary nodule. There is a left lower lobe pulmonary nodule that may be slightly increased. A [address] of the chest is recommended. 3. Mild centrilobular emphysema. 4. Coronary and aortic atherosclerosis. 5. There is a trace pericardial effusion that is of doubtful clinical significance. 6. Mild abdominal and pelvic ascites. No drainable or loculated fluid collections. 7. No intrahepatic or extrahepatic biliary dilatation is appreciated. 8. No bowel obstruction. 9. Colonic diverticulosis without diverticulitis. 10. Nephrolithiasis without hydronephrosis or ureterolithiasis. 11. Age indeterminant L2 compression deformity. Dictated by: Matt Parry M.D. on 12/20/2019 at 7:22 Approved by: Matt Parry M.D. on 12/20/2019 at 7:32
[2019-12-20 08:44] VITALS: TEMP 36.5
[2019-12-20 11:50] VITALS: BP 146/90; PULSE 90; RESP 16; TEMP 36.6; O2SAT 97
[2019-12-21 08:30] LABS: Acinetobacter baumannii Not Detected (Not Detect); Candida albicans Not Detected (Not Detect); Candida glabrata Not Detected (Not Detect); Candida krusei Not Detected (Not Detect); Candida parapsilosis Not Detected (Not Detect); Candida tropicalis Not Detected (Not Detect); E. coli Not Detected (Not Detect); Enterobacter cloacae complex Not Detected (Not Detect); Enterobacteriaceae species Not Detected (Not Detect); Enterococcus species Not Detected (Not Detect); Haemophilus influenzae Not Detected (Not Detect); KPC (carbapenem-resist gene) Not Detected (Not Detect); Listeria monocytogenes Not Detected (Not Detect); Methicillin-resistant gene Not Detected (Not Detect); Neisseria meningitidis Not Detected (Not Detect); Proteus species Not Detected (Not Detect); Pseudomonas aeruginosa Not Detected (Not Detect); Serratia marcescens Not Detected (Not Detect); Staphylococcus species Detected (Not Detect); Streptococcus pneumonia Not Detected (Not Detect); Streptococcus pyogenes (Gr A) Not Detected (Not Detect); Streptococcus species Detected (Not Detect)
[2019-12-21 08:31] LABS: Streptococcus agalactiae (Gr B Detected (Not Detect)
== END 2019-12-20 12:46 | disposition short-term general hospital (02) ==
PROVIDERS: Emergency Medicine; Emergency Provider Emergency Medicine; PCP Internal Medicine
DX: T81.44XA Sepsis following a procedure, initial encounter (principal); K91.89 Other postprocedural complications and disorders of digestive system; R00.0 Tachycardia, unspecified
CPT/HCPCS: 36415; 71045; 71260; 74177; 80053; 83605; 83690; 84145; 85025; 85610; 85651; 85730; 86140; 87040; 87150; 87205; 93005; 96361; 96365; 96367; 96375; 96376; 99284; 99285; J2270; J2405; J2543; Q9967

== ENCOUNTER → 2020-01-07 18:35 | Outpatient (ROUT) | payer MEDICARE, SELFPAY ==
[2019-12-16 17:04] VITALS: BMI 30.4
[2020-01-07 19:02] LABS: Add Manual Diff / Slide Review NO; Basophils Absolute Auto 100 /uL (0-100); Eosinophils Absolute Auto 200 /uL (0-450); Eosinophils Percent Auto 1.9 % (2-4); Hematocrit 34.6 % (41-53); Hemoglobin 11.9 g/dL (13.5-17.5); Lymphocytes Absolute Auto 1500 /uL (1100-4500); Lymphocytes Percent Auto 14.2 % (25-40); Mean Corpuscular HGB Conc 34.4 % (30-36); Mean Corpuscular Hemoglobin 31.3 PG (26-34); Mean Corpuscular Volume 91.2 fL (80-100); Monocytes Absolute Auto 1000 /uL (0-900); Monocytes Percent Auto 8.9 % (3-14); Neutrophils Absolute Auto 8100 /uL (1500-7000); Platelet Count 436 X10^3/uL (150-400); Red Blood Cell Count 3.79 X10^6/uL (4.5-5.9); White Blood Cell Count 10.9 X10^3/uL (4.5-11.0)
[2020-01-07 19:07] LABS: Alanine Aminotransferase 17 IU/L (<50); Albumin 3.6 g/dL (3.5-5.0); Albumin Globulin Ratio 0.9 (1.0-2.8); Alkaline Phosphatase 98 U/L (38-126); Amylase 46 U/L (30-110); Aspartate Aminotransferase 34 IU/L (17-59); BUN Creatinine Ratio 15.8 (6-22); Bilirubin Total 0.8 mg/dL (0.2-1.3); Blood Urea Nitrogen 19 mg/dL (9-20); Calcium 9.2 mg/dL (8.4-10.2); Carbon Dioxide 35 mmol/L (22-32); Chloride 96 mmol/L (98-107); Estimated Glomerular Filt Rate 58.9 mL/min (>60); Globulin 3.9 g/dL (1.7-4.1); Glucose 117 mg/dL (80-110); HEMOLYSIS 23 (0-50); Lipase 108 U/L (23-300); Potassium 4.4 mmol/L (3.4-5.1); Sodium 139 mmol/L (137-145); Total Protein 7.5 g/dL (6.3-8.2)
[2020-01-07 19:17] LABS: Erythrocyte Sedimentation Rate 99 MM/HR (0-15)
== END ==
PROVIDERS: PCP Internal Medicine; Visit Provider Internal Medicine
DX: R10.84 Generalized abdominal pain (principal)
CPT/HCPCS: 80053; 82150; 83690; 85025; 85651

== ENCOUNTER → 2020-01-08 08:23 | Outpatient (CLI) | payer MEDICARE, SELFPAY ==
[2019-12-16 17:04] VITALS: BMI 30.4
--- NOTE | 2020-01-08 09:23 | DI.CT.S_ITS ---
PROCEDURE: CT ABDOMEN PELVIS W CON INDICATIONS: Generalized abdominal pain TECHNIQUE: After the administration of oral and intravenous contrast, 5 mm thick sections acquired from the diaphragms to the symphysis. 5 mm thick coronal and sagittal reformats were performed. For radiation dose reduction, the following was used: automated exposure control, adjustment of mA and/or kV according to patient size. COMPARISON: [facility], CT, KIDNEY/ URETER/BLADDER, 09/12/2016, 7:22. [facility], CT, CT ABDOMEN PELVIS W CON, 03/10/2019, 12:48. [facility], CT, CT CHEST ABD PEL W CON, 12/20/2019, 7:00. [facility], CT, CT ABDOMEN PELVIS W CON, 12/16/2019, 11:14. FINDINGS: Image quality: Excellent. ABDOMEN: Lung bases: There is a 1.4 cm right lower lobe nodule, unchanged since 09/12/2016, likely benign. There is a small right effusion, slightly decreased compared to last CT dated 12/20/2019. Bibasilar scars and atelectasis. Heart size is normal. Small pericardial effusion is present. Solid organs: Since the last exam on 12/20/2019, a loculated, complex fluid collection with rim enhancement has developed in the anterior aspect of liver measuring 5.9 x 5.2 cm. There is small pockets of gas within the collection. A 5.6 x 5.1 cm new cystic mass is present in the hepatic dome under the liver capsule just lateral to the collection. There is an elliptical shaped collection under the right hemidiaphragm/hepatic capsule laterally measuring 2.1 x 5.3 cm. A surgical drain is noted within the collection. Liver is normal in size and enhancement. Gallbladder is surgically absent. A small amount of fluid is noted in the gall bladder fossa. Biliary system is non-dilated. There is a biliary stent. Pancreas enhances normally. Spleen is normal in size and enhancement. No adrenal nodules. There are bilateral nobstructive renal calculi. A 1.9 x 3.3 cm parapelvic cyst is noted in the left kidney. Kidneys are normal in size and enhancement, without hydronephrosis. Peritoneum and bowel: There is a 2.3 x 4.7 x 3.5 cm rim-enhancing fluid collection in the left pelvis posterior superior the urinary bladder, consistent with an abscess. This finding is new. There are numerous colonic diverticula. No definitive CT findings to suggest acute diverticulitis. Cecum, sigmoid colon and rectum may be mildly thickened but the presence could be caused by artifacts in the absence oral contrast. Stomach, small bowel, and colon loops are normal in caliber. No free fluid or air. Nodes and vessels: No retroperitoneal or mesenteric adenopathy. Aorta and inferior vena cava are normal in caliber. Moderate atherosclerosis. Miscellaneous: No ventral hernias. PELVIS: Genitourinary: Bladder wall is non-thickened. Prostate is enlarged with prostatic calcifications. Miscellaneous: No inguinal hernias or adenopathy. Bones: No suspicious bony lesions. There is moderate non-acute vertebral body compression fracture at L2 is again noted. IMPRESSION: 1. A new loculated, complex fluid collection with enhancement and small pockets of gas has developed in the anterior aspect of liver measuring 5.9 x 5.2 cm, consistent with an abscess. 2. A 5.6 x 5.1 cm cystic mass is present in the hepatic dome under the hepatic capsule, which could be an intrahepatic abscess. 3. A new 2.3 x 4.7 x 3.5 cm rim-enhancing fluid collection in the left pelvis consistent with an abscess. 4. Cholecystectomy. There is a small amount of fluid in the gallbladder fossa. Differential diagnosis include hematoma, abscess or biloma. 5. A subcapsular fluid collection with a surgical drain in the lateral aspect of the liver. 6. A biliary drain in the common bile duct is noted. There is no intrahepatic biliary dilation. 7. Small right pleural effusion, slightly decreased. 8. Small pericardial effusion. 9. Diverticulosis without acute diverticulitis. 10. Mild bladder wall thickening. 11. Enlarged prostate with prostatic calcifications. 12. Bilateral nobstructive renal stones. The result was discussed with Dr. Huddleston prior to dictation. Dictated by: Yoli Hawthorne M.D. on 01/08/2020 at 10:35 Approved by: Yoli Hawthorne M.D. on 01/08/2020 at 11:11
== END ==
PROVIDERS: PCP Internal Medicine; Referring Provider Internal Medicine; Visit Provider Internal Medicine
DX: R10.84 Generalized abdominal pain (principal); K76.9 Liver disease, unspecified; R91.1 Solitary pulmonary nodule; J90 Pleural effusion, not elsewhere classified; I31.3 Pericardial effusion (noninflammatory); K57.90 Diverticulosis of intestine, part unspecified, without perforation or abscess without bleeding; N40.0 Benign prostatic hyperplasia without lower urinary tract symptoms; N28.1 Cyst of kidney, acquired; N20.0 Calculus of kidney; Z90.49 Acquired absence of other specified parts of digestive tract
CPT/HCPCS: 74177; Q9967

== ENCOUNTER 2020-01-08 15:15 | Inpatient (IN) | payer MEDICARE, SELFPAY ==
[2019-12-16 17:04] VITALS: BMI 30.4
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
[2020-01-08 15:29] VITALS: BP 138/63; PULSE 71; RESP 18; TEMP 37; O2SAT 95
[2020-01-08 15:52] LABS: Lactate (Lactic Acid) 1.4 mmol/L (0.7-2.1)
[2020-01-08] MEDS: SODIUM CHLORIDE 0.9% 1,000 ML 125 ML IV (16:04)
[2020-01-08] MEDS: PIPERACILLIN-TAZO 4.5 GM/100 ML FROZ.PIGGY IV (16:04)
[2020-01-08 16:08] LABS: Add Manual Diff / Slide Review NO; Basophils Absolute Auto 100 /uL (0-100); Basophils Percent Auto 1.1 % (0-2); Eosinophils Absolute Auto 200 /uL (0-450); Eosinophils Percent Auto 1.9 % (2-4); Hematocrit 32.8 % (41-53); Hemoglobin 11.2 g/dL (13.5-17.5); Lymphocytes Absolute Auto 1200 /uL (1100-4500); Lymphocytes Percent Auto 14.5 % (25-40); Mean Corpuscular HGB Conc 34.2 % (30-36); Mean Corpuscular Hemoglobin 30.9 PG (26-34); Mean Corpuscular Volume 90.1 fL (80-100); Monocytes Absolute Auto 800 /uL (0-900); Monocytes Percent Auto 9.2 % (3-14); Neutrophils Absolute Auto 6300 /uL (1500-7000); Neutrophils Percent Auto 73.3 % (50-75); Platelet Count 389 X10^3/uL (150-400); Red Blood Cell Count 3.64 X10^6/uL (4.5-5.9); Red Cell Distribution Width 14.1 % (11.6-14.8); White Blood Cell Count 8.6 X10^3/uL (4.5-11.0)
[2020-01-08 16:09] LABS: INR 1.1 (0.9-1.3); Prothrombin Time 12.3 SECONDS (10.1-12.7)
[2020-01-08 16:12] LABS: PTT Partial Thromboplastin Tim 29 SECONDS (26.4-36.2)
[2020-01-08 16:19] LABS: Alanine Aminotransferase 16 IU/L (<50); Albumin 3.6 g/dL (3.5-5.0); Albumin Globulin Ratio 0.9 (1.0-2.8); Alkaline Phosphatase 92 U/L (38-126); Aspartate Aminotransferase 31 IU/L (17-59); BUN Creatinine Ratio 18.3 (6-22); Bilirubin Total 0.7 mg/dL (0.2-1.3); Bilirubin Unconjugated 0.4 mg/dL (0.0-1.1); Blood Urea Nitrogen 22 mg/dL (9-20); Calcium 8.9 mg/dL (8.4-10.2); Carbon Dioxide 35 mmol/L (22-32); Chloride 95 mmol/L (98-107); Estimated Glomerular Filt Rate 58.9 mL/min (>60); Glucose 126 mg/dL (80-110); HEMOLYSIS < 15 (0-50); Lipase 132 U/L (23-300); Potassium 4.2 mmol/L (3.4-5.1); Sodium 138 mmol/L (137-145); Total Protein 7.6 g/dL (6.3-8.2)
[2020-01-08 16:30] LABS: Procalcitonin < 0.05 ng/mL (<0.5)
[2020-01-08 16:31] VITALS: BP 118/57; PULSE 67; RESP 14; O2SAT 98
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
[2020-01-08 16:45] VITALS: BP 108/44; PULSE 67; RESP 15; TEMP 36.8; O2SAT 92
[2020-01-08 16:58] VITALS: BMI 27.2
[2020-01-08 17:51] VITALS: PULSE 58; RESP 16; O2SAT 94
[2020-01-08 20:23] VITALS: BP 118/60; PULSE 66; RESP 20; TEMP 36.7; O2SAT 95
[2020-01-08] MEDS: ATORVASTATIN 20 MG TABLET 80 MG PO (20:55)
[2020-01-08] MEDS: PIPERACILLIN-TAZO 3.375 GM/50 ML FROZ.PIGGY IV (20:55)
[2020-01-08] MEDS: DOCUSATE 100 MG CAPSULE PO (20:55)
[2020-01-08] MEDS: GABAPENTIN 600 MG TABLET 300 MG PO (20:55)
[2020-01-08] MEDS: MORPHINE ER 30 MG TABLET PO (20:55)
[2020-01-08 23:30] VITALS: BP 105/42; PULSE 62; RESP 14; TEMP 36.3; O2SAT 85
[2020-01-09] VITALS (17 sets, daily range): BP systolic 85–158; BP diastolic 40–65; PULSE 57–106; RESP 16–22; TEMP 36.4–38.7; O2SAT 76–98
[2020-01-09] MEDS: PIPERACILLIN-TAZO 3.375 GM/50 ML FROZ.PIGGY IV ×5 (00:10→23:54)
[2020-01-09] MEDS: OXYCODONE IR 10 MG TABLET PO (04:31)
--- NOTE | 2020-01-09 05:04 | PC.NURSE ---
Patient took off cpap, and was confused. Shivering, warm to touch, shakey. O2 sats in 80s, 2L placed on via nasal canulla. Temporal temp was elevated, oral temp was ok. Confusion cleared after oxygenation and redirection, warm blankets. Sats rallied to mid 90s on 2L. Patient no longer shakey, or shivering. Alert and oriented. Requesting pain med for chest pain in upper and lower chest. Denies cardiac pain though. Percolone given.
[2020-01-09] MEDS: SODIUM CHLORIDE 0.9% 1,000 ML 30 ML IV (06:54)
[2020-01-09 07:51] LABS: Add Manual Diff / Slide Review NO; Basophils Absolute Auto 100 /uL (0-100); Basophils Percent Auto 1.1 % (0-2); Eosinophils Absolute Auto 0 /uL (0-450); Eosinophils Percent Auto 0.5 % (2-4); Hematocrit 32.1 % (41-53); Hemoglobin 10.9 g/dL (13.5-17.5); Lymphocytes Absolute Auto 400 /uL (1100-4500); Lymphocytes Percent Auto 5.1 % (25-40); Mean Corpuscular HGB Conc 33.8 % (30-36); Mean Corpuscular Hemoglobin 30.7 PG (26-34); Mean Corpuscular Volume 90.9 fL (80-100); Monocytes Absolute Auto 400 /uL (0-900); Monocytes Percent Auto 5.4 % (3-14); Neutrophils Absolute Auto 7000 /uL (1500-7000); Neutrophils Percent Auto 87.9 % (50-75); Platelet Count 304 X10^3/uL (150-400); Red Blood Cell Count 3.53 X10^6/uL (4.5-5.9); Red Cell Distribution Width 13.9 % (11.6-14.8)
[2020-01-09 08:04] LABS: Alanine Aminotransferase 13 IU/L (<50); Albumin 3.1 g/dL (3.5-5.0); Albumin Globulin Ratio 0.8 (1.0-2.8); Alkaline Phosphatase 79 U/L (38-126); Aspartate Aminotransferase 28 IU/L (17-59); Bilirubin Total 0.7 mg/dL (0.2-1.3); Blood Urea Nitrogen 18 mg/dL (9-20); Calcium 8.3 mg/dL (8.4-10.2); Carbon Dioxide 31 mmol/L (22-32); Chloride 102 mmol/L (98-107); Estimated Glomerular Filt Rate 58.9 mL/min (>60); Globulin 3.7 g/dL (1.7-4.1); Glucose 122 mg/dL (80-110); HEMOLYSIS < 15 (0-50); Potassium 4.4 mmol/L (3.4-5.1); Sodium 140 mmol/L (137-145); Total Protein 6.8 g/dL (6.3-8.2)
[2020-01-09] MEDS: ALBUTEROL/IPRATROPIUM 3 ML AMPUL INH ×2 (10:06→19:34)
--- NOTE | 2020-01-09 10:30 | P.PN_ITS ---
Subjective Subjective Date Patient Seen: 01/09/20 Time Patient Seen: 10:30 Interval history: Abdominal pain significantly improved over the past 24 hours. No fever nausea vomiting. Tolerating a diet. Exam Vital Signs (past 8 hours): - 01/09/20 04:05 01/09/20 04:15 01/09/20 04:16 Temperature 101.6 F H 98.4 F Pulse Rate 106 H 101 H Respiratory Rate 22 20 Blood Pressure 158/65 H Pulse Oximetry 76 L 93 96 01/09/20 10:06 Temperature Pulse Rate 77 Respiratory Rate 16 Blood Pressure Pulse Oximetry 92 Oxygen Delivery Method Nasal Cannula Oxygen Flow Rate 2.5 Narrative Exam Narrative: General adult male alert oriented no acute distress Abdomen soft mild right upper quadrant tenderness Objective Labs Result Diagrams: 01/09/20 07:30 01/09/20 07:30 Labs: Laboratory Results - last 24 hr 01/08/20 01/08/20 01/08/20 15:35 15:54 15:54 WBC 8.6 RBC 3.64 L Hgb 11.2 L Hct 32.8 L MCV 90.1 MCH 30.9 MCHC 34.2 RDW 14.1 Plt Count 389 Neut % (Auto) 73.3 Lymph % (Auto) 14.5 L Pershing % (Auto) 9.2 Eos % (Auto) 1.9 L Baso % (Auto) 1.1 Neut # (Auto) 6300 Lymph # (Auto) 1200 Pershing # (Auto) 800 Eos # (Auto) 200 Baso # (Auto) 100 PT 12.3 INR 1.1 APTT 29 D Sodium Potassium Chloride Carbon Dioxide BUN Creatinine Estimated GFR BUN/Creatinine Ratio Glucose Lactate 1.4 Calcium Total Bilirubin Conjugated Bilirubin Unconjugated Bilirubin AST ALT Alkaline Phosphatase Total Protein Albumin Globulin Albumin/Globulin Ratio Lipase Procalcitonin Blood Type Antibody Screen 01/08/20 01/08/20 01/08/20 15:54 15:54 15:54 WBC RBC Hgb Hct MCV MCH MCHC RDW Plt Count Neut % (Auto) Lymph % (Auto) Pershing % (Auto) Eos % (Auto) Baso % (Auto) Neut # (Auto) Lymph # (Auto) Pershing # (Auto) Eos # (Auto) Baso # (Auto) PT INR APTT Sodium 138 Potassium 4.2 Chloride 95 L Carbon Dioxide 35 H BUN 22 H Creatinine 1.20 Estimated GFR 58.9 L BUN/Creatinine Ratio 18.3 Glucose 126 H Lactate Calcium 8.9 Total Bilirubin 0.7 Conjugated Bilirubin 0.0 Unconjugated Bilirubin 0.4 AST 31 ALT 16 Alkaline Phosphatase 92 Total Protein 7.6 Albumin 3.6 Globulin 4.0 Albumin/Globulin Ratio 0.9 L Lipase 132 Procalcitonin < 0.05 Blood Type A Positive Antibody Screen Negative 01/09/20 01/09/20 07:30 07:30 WBC 8.0 RBC 3.53 L Hgb 10.9 L Hct 32.1 L MCV 90.9 MCH 30.7 MCHC 33.8 RDW 13.9 Plt Count 304 Neut % (Auto) 87.9 H Lymph % (Auto) 5.1 L Pershing % (Auto) 5.4 Eos % (Auto) 0.5 L Baso % (Auto) 1.1 Neut # (Auto) 7000 Lymph # (Auto) 400 L Pershing # (Auto) 400 Eos # (Auto) 0 Baso # (Auto) 100 PT INR APTT Sodium 140 Potassium 4.4 Chloride 102 Carbon Dioxide 31 BUN 18 Creatinine 1.20 Estimated GFR 58.9 L BUN/Creatinine Ratio 15.0 Glucose 122 H Lactate Calcium 8.3 L Total Bilirubin 0.7 Conjugated Bilirubin Unconjugated Bilirubin AST 28 ALT 13 Alkaline Phosphatase 79 Total Protein 6.8 Albumin 3.1 L Globulin 3.7 Albumin/Globulin Ratio 0.8 L Lipase Procalcitonin Blood Type Antibody Screen Assessment & Plan Assessment and plan (1) Intra-abdominal abscess post-procedure: Current visit: Yes Status: Acute Assessment & Plan narrative: 74-year-old man with intra-abdominal abscess. He underwent emergency cholecystectomy 3 weeks ago for acute on chronic cholecystitis complicated by a cystic stump leak. He subsequently underwent an ERCP at an outside hospital had an intra-abdominal drain placement and sustained a NSTEMI. He is now admitted with intra-abdominal fluid collections. He is afebrile with no white blood cell count and has improved abdominal pain over the past 24 hours on IV Zosyn. -regular diet -continue IV Zosyn -DC IV fluids -SCDs for VTE prophylaxis Quality VTE Deep Vein Thrombosis/Pulmonary Embolism Present on Admission: No
[2020-01-09] MEDS: DULOXETINE 30 MG CAPSULE 60 MG PO (10:52)
[2020-01-09] MEDS: MORPHINE ER 30 MG TABLET PO (10:52)
[2020-01-09] MEDS: SPIRONOLACTONE 25 MG TABLET PO (10:53)
[2020-01-09] MEDS: PANTOPRAZOLE 40 MG TABLET PO (10:53)
[2020-01-09] MEDS: METOPROLOL ER 50 MG TABLET 75 MG PO (10:53)
[2020-01-09] MEDS: lisinopriL 10 MG TABLET 5 MG PO (10:53)
[2020-01-09] MEDS: DOCUSATE 100 MG CAPSULE PO ×2 (10:53→20:15)
[2020-01-09] MEDS: TAMSULOSIN 0.4 MG CAPSULE PO (10:55)
[2020-01-09] MEDS: GABAPENTIN 600 MG TABLET 300 MG PO ×2 (10:55→20:16)
[2020-01-09] MEDS: TORSEMIDE 10 MG TABLET PO (11:08)
--- NOTE | 2020-01-09 12:30 | CM.DANOTE ---
DCP: Case received, EMR reviewed and checked on patient, but he has been sleeping. Was able to speak to , Sendy, via phone. Introduced self and role. Was able to obtain information regarding patient's baseline activity level. DCP assessment completed with information currently available. Patient is a 74 year old male who admitted yesterday afternoon to the care of the surgical team. PCP: Dr. Gong. Payer: confirmed: Medicare/[employer]. Patient came to the hospital secondary to abdominal pain. Patient had a cholecystectomy about 3 weeks ago. Patient holds current diagnosis of fluid collection, abscesses. Patient is seeing surgeon, and surgeon has stated that patient is tolerating diet. , Sendy, resides with patient in the [facility]. She stated that patient is independent, but has not been driving lately. He does not use any DME supplies. P: DCP to continue to follow. Patient should be able to go home when he is medically stable. Lizzie Mooney RN/Security Systems Technician
--- NOTE | 2020-01-09 15:37 | PC.NURSE ---
Patient BP in the low 100s; per discussion w/ and patient--MS contin is a new prescription which he filled just prior to being admitted. MD notified and MS contin Decreased to 15mg TID- see new orders. Also per MD hold Metoprolol for SBP<100. Discussed with oncoming RN. Patient remains on 2 L NC and has brought patiet's CPAP now in room.
[2020-01-09] MEDS: ATORVASTATIN 20 MG TABLET 80 MG PO (20:16)
[2020-01-09] MEDS: MORPHINE ER 15 MG TABLET PO (21:21)
[2020-01-10] VITALS (12 sets, daily range): BP systolic 95–129; BP diastolic 45–64; PULSE 56–71; RESP 15–20; TEMP 36.5–36.7; O2SAT 88–97
[2020-01-10] MEDS: OXYCODONE IR 10 MG TABLET PO ×2 (03:20→17:50)
[2020-01-10 05:27] LABS: Add Manual Diff / Slide Review NO; Basophils Absolute Auto 100 /uL (0-100); Basophils Percent Auto 1.8 % (0-2); Eosinophils Absolute Auto 300 /uL (0-450); Eosinophils Percent Auto 4.4 % (2-4); Hematocrit 30.4 % (41-53); Hemoglobin 10.4 g/dL (13.5-17.5); Lymphocytes Absolute Auto 800 /uL (1100-4500); Lymphocytes Percent Auto 13.8 % (25-40); Mean Corpuscular HGB Conc 34.1 % (30-36); Mean Corpuscular Hemoglobin 30.8 PG (26-34); Mean Corpuscular Volume 90.2 fL (80-100); Monocytes Absolute Auto 600 /uL (0-900); Monocytes Percent Auto 10.4 % (3-14); Neutrophils Absolute Auto 4100 /uL (1500-7000); Neutrophils Percent Auto 69.6 % (50-75); Platelet Count 282 X10^3/uL (150-400); Red Blood Cell Count 3.37 X10^6/uL (4.5-5.9); Red Cell Distribution Width 14.2 % (11.6-14.8); White Blood Cell Count 5.9 X10^3/uL (4.5-11.0)
[2020-01-10 05:33] LABS: Alanine Aminotransferase 13 IU/L (<50); Albumin Globulin Ratio 0.8 (1.0-2.8); Alkaline Phosphatase 72 U/L (38-126); Aspartate Aminotransferase 28 IU/L (17-59); BUN Creatinine Ratio 17.3 (6-22); Bilirubin Total 0.7 mg/dL (0.2-1.3); Blood Urea Nitrogen 19 mg/dL (9-20); Calcium 8.4 mg/dL (8.4-10.2); Carbon Dioxide 32 mmol/L (22-32); Chloride 102 mmol/L (98-107); Estimated Glomerular Filt Rate > 60.0 mL/min (>60); Globulin 3.6 g/dL (1.7-4.1); Glucose 120 mg/dL (80-110); HEMOLYSIS < 15 (0-50); Potassium 4.2 mmol/L (3.4-5.1); Sodium 139 mmol/L (137-145); Total Protein 6.6 g/dL (6.3-8.2)
[2020-01-10] MEDS: PIPERACILLIN-TAZO 3.375 GM/50 ML FROZ.PIGGY IV ×4 (06:12→23:40)
[2020-01-10] MEDS: MORPHINE ER 15 MG TABLET PO ×3 (06:16→21:08)
[2020-01-10] MEDS: ALBUTEROL/IPRATROPIUM 3 ML AMPUL INH ×2 (07:32→17:43)
[2020-01-10] MEDS: DOCUSATE 100 MG CAPSULE PO ×2 (10:05→21:07)
[2020-01-10] MEDS: DULOXETINE 30 MG CAPSULE 60 MG PO (10:05)
[2020-01-10] MEDS: GABAPENTIN 600 MG TABLET 300 MG PO ×2 (10:05→21:07)
[2020-01-10] MEDS: lisinopriL 10 MG TABLET 5 MG PO (10:06)
[2020-01-10] MEDS: METOPROLOL ER 50 MG TABLET 75 MG PO (10:06)
[2020-01-10] MEDS: TAMSULOSIN 0.4 MG CAPSULE PO (10:08)
[2020-01-10] MEDS: SPIRONOLACTONE 25 MG TABLET PO (10:08)
[2020-01-10] MEDS: PANTOPRAZOLE 40 MG TABLET PO (10:08)
[2020-01-10] MEDS: TORSEMIDE 10 MG TABLET PO (10:09)
--- NOTE | 2020-01-10 10:51 | PC.NURSE ---
Bed alarm heard, went in to check patient and patient was already in bathroom. States he is fine and doesn't need assistance, patient not using walker available. Waiting with patient to monitor. Steady on feet. Patient reports he had a normal BM earlier and had urinated twice now. Not visualized by this RN. Patient back in bed, and call light placed within reach and bed alarm re activated. Patient instructed to call for assistance for safety. Denies pain or other complaint at this time. Drain to RUQ remains intact with dressing dry. Continue to monitor.
--- NOTE | 2020-01-10 11:27 | PM.PN.1 ---
Subjective Subjective Date Patient Seen: 01/10/20 Time Patient Seen: 11:27 Interval history: No acute overnight events. Afebrile over the past 24 hours period improving abdominal pain. No nausea vomiting tolerating regular diet yesterday. Exam Vital Signs (past 8 hours): - 01/10/20 03:51 01/10/20 04:10 01/10/20 07:36 Temperature 98.0 F Pulse Rate 68 60 Respiratory Rate 18 18 Blood Pressure 105/54 L Pulse Oximetry 96 97 01/10/20 08:00 01/10/20 10:09 Temperature 97.9 F Pulse Rate 65 70 Respiratory Rate 16 Blood Pressure 116/52 L 105/58 L Pulse Oximetry 95 Oxygen Delivery Method Nasal Cannula Oxygen Flow Rate 0 Narrative Exam Narrative: General adult male alert oriented no acute distress Abdomen soft nontender nondistended. Objective Labs Result Diagrams: 01/10/20 05:15 01/10/20 05:15 Labs: Laboratory Results - last 24 hr 01/10/20 01/10/20 05:15 05:15 WBC 5.9 RBC 3.37 L Hgb 10.4 L Hct 30.4 L MCV 90.2 MCH 30.8 MCHC 34.1 RDW 14.2 Plt Count 282 Neut % (Auto) 69.6 Lymph % (Auto) 13.8 L Cottle % (Auto) 10.4 Eos % (Auto) 4.4 H Baso % (Auto) 1.8 Neut # (Auto) 4100 Lymph # (Auto) 800 L Cottle # (Auto) 600 Eos # (Auto) 300 Baso # (Auto) 100 Sodium 139 Potassium 4.2 Chloride 102 Carbon Dioxide 32 BUN 19 Creatinine 1.10 Estimated GFR > 60.0 BUN/Creatinine Ratio 17.3 Glucose 120 H Calcium 8.4 Total Bilirubin 0.7 AST 28 ALT 13 Alkaline Phosphatase 72 Total Protein 6.6 Albumin 3.0 L Globulin 3.6 Albumin/Globulin Ratio 0.8 L Assessment & Plan Assessment & Plan narrative: 74-year-old man with intra-abdominal abscess. He underwent emergency cholecystectomy 3 weeks ago for acute on chronic cholecystitis complicated by a cystic stump leak. He subsequently underwent an ERCP at an outside hospital had an intra-abdominal drain placement and sustained a NSTEMI. He is now admitted with intra-abdominal fluid collections. Afebrile for the past 24 hours, no leukocytosis, largely resolved abdominal pain on IV Zosyn. -regular diet -continue IV Zosyn -planned to reimage was CT abdomen pelvis tomorrow and then anticipate transition to oral antibiotics. -SCDs for VTE prophylaxis Quality VTE Deep Vein Thrombosis/Pulmonary Embolism Present on Admission: No
[2020-01-10] MEDS: ATORVASTATIN 20 MG TABLET 80 MG PO (21:08)
--- NOTE | 2020-01-10 22:52 | PC.NURSE ---
Evening Shift Note- increased confusion noted this evening. Patient alert and oriented and able to answer questions appropriatly at start of shift. Patient appeared to be more confused after falling asleep after dinner. Patient has repeatedly set off bed alarm. patient reorientes easily. Patient moved to next room over to improve view from nurses station for safety. Safety measures in place. bed alarm activated. call brady and phone within reach. will continue to monitor.
[2020-01-10] MEDS: SODIUM CHLORIDE 0.9% 250 ML 21 ML IV (23:41)
[2020-01-10] MEDS: SODIUM CHLORIDE 0.9% FLUSH 10 ML IV (23:41)
[2020-01-11] VITALS (9 sets, daily range): BP systolic 105–132; BP diastolic 44–60; PULSE 61–73; RESP 14–20; TEMP 36.2–37; O2SAT 91–94
--- NOTE | 2020-01-11 01:52 | PC.NURSE ---
Addendum entered by Malena Lizama R.N. 01/11/20 05:51: O2 sat 95% on 2L/min oxygen so decreased to 1.5L/min. Medicated with scheduled Morphine for complaint of 8/10 sharp lower back pain. Addendum entered by Malena Lizama R.N. 01/11/20 05:36: Remains restless most of shift. Unable to keep continuous pulse oximetry on and seems to make patient more restless so removed. Intermittently removing CPAP and has pulled machine off table twice so now left off and placed back on oxygen at 2L/min Original Note: Patient seen and assessed at 2336. Moved to room 209 at shift change as patient has been frequently attempting to get out of bed; setting off alarm and by moving staff can keep a closer watch. Oriented except to place but is forgetful and impulsive. Breath sounds diminished but CTA. HRR. Denies nausea. BT present but sound tympanic. Drain to right upper quadrant is intact; dressing without drainage and no drainage noted in bag. Voided at shift change but not measured; has been continent. Noted to have rash on left side of lower back; scabbed, scattered spots and bilateral groins are reddened. States pain in RUQ is 4/10 but states pain is tolerable and declines offer of pain medication. Has refused to wear SCD's in past and due to restlessness use not pursued at this time. Have him on continuous pulse oximetry but patient continues to remove frequently. Currently using CPAP with oxygen at 4L/min bled in and sat is mostly 93-94% at rest but drops with restlessness. Fall risk score is high and bed alarm is activated.
[2020-01-11 05:33] LABS: Add Manual Diff / Slide Review NO; Basophils Absolute Auto 100 /uL (0-100); Eosinophils Absolute Auto 200 /uL (0-450); Eosinophils Percent Auto 3.5 % (2-4); Hemoglobin 10.5 g/dL (13.5-17.5); Lymphocytes Absolute Auto 900 /uL (1100-4500); Mean Corpuscular HGB Conc 33.9 % (30-36); Mean Corpuscular Hemoglobin 30.6 PG (26-34); Mean Corpuscular Volume 90.2 fL (80-100); Monocytes Absolute Auto 600 /uL (0-900); Monocytes Percent Auto 8.8 % (3-14); Neutrophils Absolute Auto 4600 /uL (1500-7000); Neutrophils Percent Auto 72.7 % (50-75); Platelet Count 284 X10^3/uL (150-400); Red Blood Cell Count 3.44 X10^6/uL (4.5-5.9); Red Cell Distribution Width 14.1 % (11.6-14.8); White Blood Cell Count 6.4 X10^3/uL (4.5-11.0)
[2020-01-11] MEDS: MORPHINE ER 15 MG TABLET PO ×2 (05:40→21:17)
[2020-01-11] MEDS: SODIUM CHLORIDE 0.9% FLUSH 10 ML IV ×3 (05:41→21:18)
[2020-01-11 05:42] LABS: Alanine Aminotransferase 14 IU/L (<50); Albumin 3.1 g/dL (3.5-5.0); Albumin Globulin Ratio 0.8 (1.0-2.8); Alkaline Phosphatase 72 U/L (38-126); Aspartate Aminotransferase 28 IU/L (17-59); BUN Creatinine Ratio 13.6 (6-22); Bilirubin Total 0.7 mg/dL (0.2-1.3); Blood Urea Nitrogen 15 mg/dL (9-20); Calcium 8.6 mg/dL (8.4-10.2); Carbon Dioxide 34 mmol/L (22-32); Chloride 103 mmol/L (98-107); Estimated Glomerular Filt Rate > 60.0 mL/min (>60); Globulin 3.7 g/dL (1.7-4.1); Glucose 115 mg/dL (80-110); HEMOLYSIS < 15 (0-50); Potassium 4.3 mmol/L (3.4-5.1); Sodium 142 mmol/L (137-145); Total Protein 6.8 g/dL (6.3-8.2)
[2020-01-11] MEDS: PIPERACILLIN-TAZO 3.375 GM/50 ML FROZ.PIGGY IV (05:44)
--- NOTE | 2020-01-11 08:29 | P.PN_ITS ---
Subjective Subjective Date Patient Seen: 01/11/20 Time Patient Seen: 08:29 Interval history: No acute overnight events. Tolerating regular diet without nausea or vomiting. No fever. Exam Vital Signs (past 8 hours): - 01/11/20 05:12 Temperature 97.2 F L Pulse Rate 72 Respiratory Rate 18 Blood Pressure 117/49 L Pulse Oximetry 94 Oxygen Delivery Method Nasal Cannula,CPAP Oxygen Flow Rate 2 Narrative Exam Narrative: General-no acute distress, well nourished Abdomen soft nontender nondistended abdominal drain without output Objective Labs Result Diagrams: 01/11/20 05:10 01/11/20 05:10 Labs: Laboratory Results - last 24 hr 01/11/20 01/11/20 05:10 05:10 WBC 6.4 RBC 3.44 L Hgb 10.5 L Hct 31.0 L MCV 90.2 MCH 30.6 MCHC 33.9 RDW 14.1 Plt Count 284 Neut % (Auto) 72.7 Lymph % (Auto) 14.0 L [place] % (Auto) 8.8 Eos % (Auto) 3.5 Baso % (Auto) 1.0 Neut # (Auto) 4600 Lymph # (Auto) 900 L [place] # (Auto) 600 Eos # (Auto) 200 Baso # (Auto) 100 Sodium 142 Potassium 4.3 Chloride 103 Carbon Dioxide 34 H BUN 15 Creatinine 1.10 Estimated GFR > 60.0 BUN/Creatinine Ratio 13.6 Glucose 115 H Calcium 8.6 Total Bilirubin 0.7 AST 28 ALT 14 Alkaline Phosphatase 72 Total Protein 6.8 Albumin 3.1 L Globulin 3.7 Albumin/Globulin Ratio 0.8 L Assessment & Plan Assessment & Plan narrative: 74-year-old man with intra-abdominal abscess. He underwent emergency cholecystectomy 3 weeks ago for acute on chronic cholecystitis complicated by a cystic stump leak. He subsequently underwent an ERCP at an outside hospital had an intra-abdominal drain placement and sustained a NSTEMI. He is now admitted with intra-abdominal fluid collections. Afebrile for the past 24 hours, no leukocytosis, largely resolved abdominal pain on IV Zosyn. -regular diet -Changed Zosyn to trial of PO Levoquin and Flagyl -SCDs for VTE prophylaxis -Anticipate DC home tomorrow Quality VTE Deep Vein Thrombosis/Pulmonary Embolism Present on Admission: No
[2020-01-11] MEDS: TAMSULOSIN 0.4 MG CAPSULE PO (09:13)
[2020-01-11] MEDS: PANTOPRAZOLE 40 MG TABLET PO (09:13)
[2020-01-11] MEDS: levoFLOXacin 250 MG TABLET 750 MG PO (09:13)
[2020-01-11] MEDS: TORSEMIDE 10 MG TABLET PO (09:13)
[2020-01-11] MEDS: SPIRONOLACTONE 25 MG TABLET PO (09:13)
[2020-01-11] MEDS: GABAPENTIN 600 MG TABLET 300 MG PO (09:13)
[2020-01-11] MEDS: METOPROLOL ER 50 MG TABLET 75 MG PO (09:13)
[2020-01-11] MEDS: DOCUSATE 100 MG CAPSULE PO ×2 (09:13→21:18)
[2020-01-11] MEDS: metroNIDAZOLE 500 MG TABLET PO ×3 (09:13→21:18)
[2020-01-11] MEDS: lisinopriL 10 MG TABLET 5 MG PO (09:13)
[2020-01-11] MEDS: DULOXETINE 30 MG CAPSULE 60 MG PO (09:13)
[2020-01-11] MEDS: ALBUTEROL/IPRATROPIUM 3 ML AMPUL INH (10:32)
[2020-01-11] MEDS: OLANZapine ODT 10 MG TAB PO (10:32)
[2020-01-11] MEDS: QUETIAPINE 25 MG TABLET PO (12:33)
--- NOTE | 2020-01-11 13:23 | CM.DPC ---
DCP Home vs SNF planning Per Surgeon, pt seems to be tolerating his diet with no nausea/vomiting and ordered for CT today with plan of likely switching to oral meds and may be medically stable to d/c tomorrow 01/12/20. Per RN, pt with ongoing confusion, hallucinations, impulsivity that are not pt's baseline. Possible hospital induced delirium and working on pain medication adjustments to determine if sleep and medication change will help pt to clear more. SW missed spouse Sendy bedside but called her at home and explained role and spouse confirms that pt is not at his baseline and confusion/hallucinations are new and not his baseline. Spouse denies pt has any hx of SNF and that after his hospitalization at [facility] he was set up with HH but when HH came to do assessment it was determined by pt and spouse along with HH that pt did not meet homebound status and HH not needed. SW discussed that Surgeon anticipates pt may be medically stable to d/c by tomorrow if stable and inquired if spouse has concerns with pt d/c home if continues to have confusion and require additional assist then back up plan likely needed. SW provided the SNF Choice List via phone and discussed Medicare coverage for SNF and spouse states that preference would be home if pt is more clear and if not then SNF preference would be [facility] and agreeable with SW making a referral to determine if they have availability and if they could accept if needed. SW called [facility] admissions April and explained pt situation and possible need for SNF vs home with spouse pending if pt clears more and his assist level. [facility] will review. No PASRR completed yet. Plan: SW to follow tomorrow to determine if pt was able to sleep and have his A&O improve with reduced confusion towards determining SNF vs home with spouse. [facility] reviewing. PASRR needed if SNF. RISSA Meyers
--- NOTE | 2020-01-11 15:25 | PC.NURSE ---
Day Shift Pt confused and impulsive. Jumping out of bed occassionally. NOC RN reports that he didn't sleep. Pt asking me about dogs on the wall, colors and little kids in the room. Per , pt has been hallucinating for 2 weeks now. Notified MD, order for 10 mg zyprexa, this was given at 1030, no sleep. Order for 25 mg seroquel, given at 1230, no sleep. Notified MD and order for an additional 20 mg of zyprexa, order placed at end of shift. next shift RN aware of new order.
[2020-01-11] MEDS: OLANZapine ODT 10 MG TAB 20 MG PO (16:17)
--- NOTE | 2020-01-11 17:18 | PC.NURSE ---
Pt continues to be confused and hallucinating- he knows himself and place but continues to hallucinate standing on bed trying to take things off the wall and talking nonsense . Occasionally shaking the bed rails and talking to something not here. Refused to eat or drink at this time. Starring off at the ceiling and moving his head back and forth as though something is flying by, talking and grinning at unforseen person. picking at blankets. Bed alarmed with continuous observation.
[2020-01-11] MEDS: ATORVASTATIN 20 MG TABLET 80 MG PO (21:18)
[2020-01-11] MEDS: GABAPENTIN 300 MG CAPSULE PO (21:18)
[2020-01-11] MEDS: HALOPERIDOL 5 MG/ML VIAL 1 MG IV (22:42)
--- NOTE | 2020-01-11 23:20 | PC.NURSE ---
Evening Shift Note- Patient confused with noted visual and auditory hallucinations. Patient has not slept since a short nap after dinner yesterday, Patient impulsive and unsteady. Attempts to reorient patient unsuccessfull. Patient started to get angry and aggressive with this nurse and 1:1 AIRCRAFT PAINTER APPRENTICE at one point this evening. Security called. Patients speech is slurred and sometimes unintellegable. Patient refused dinner and all offers of snacks. Patient seeing things on the estr[place] and floating in the air. Patient will lay down in bed for about a minute then starts to scoot down the bed to try and get out of bed. difficult to get patient to cooperate. Held HS Zyprexa dose and called environmental scientist Dr Harris. recieved new order for Haldol 1mg IV. Haldol given. safety measures in place. !:1 to continue oin dnight shift for safety.
[2020-01-12] VITALS (7 sets, daily range): BP systolic 105–150; BP diastolic 48–71; PULSE 59–86; RESP 13–20; TEMP 36.6–36.8; O2SAT 89–93
--- NOTE | 2020-01-12 01:35 | PC.NURSE ---
Addendum entered by Malena Lizama R.N. 01/12/20 06:52: [place] [facility] [place] unable to urinate. Has not urinated since early this shift so bladder scan done showing 488cc. Dr Harris informed and order to do in/out cath. Patient straight cathed for 475cc dark kelly urine; tolerated procedure well. Addendum entered by Malena Lizama R.N. 01/12/20 06:16: Continues to be quite confused. Knows his name and the day of the week but is otherwise disoriented. Earlier stated back pain was 10/10 and now states 610. Continues to require 1:1 supervision Addendum entered by Malena Lizama R.N. 01/12/20 03:34: Assisted into bathroom but had difficulty getting patient to turn around to sit down on toilet so pulled commode in behind him; still took him quite a while to figure out how to sit down. While sitting on commode was grabbing/pointing at wall and mumbling. When ready to stand up (did not void or have BM), took 3 assist to walk with him back to bed. Seemed to not be able to understand to move his feet and took delayed amount of time to get him to do so. When sitting in bed reaching for floor and asked staff to pick that up although there was nothing on the floor. Addendum entered by Malena Lizama R.N. 01/12/20 02:33: Continues to be awake and crawling out of bed. Got down on his knees and started searching around floor stating he is looking for his keys. Wants Sendy and SOFTWARE PACKAGING ENGINEER to go to [employer] and get the car. Sometimes needing 2 assists to get him back into bed. Original Note: Patient seen and assessed at 2358. Is oriented to self, birthdate and age. Answers to other orientation questions not understood as patient's words are slurred and soft spoken. Seems to be very drowsy/sedated after having received Haldol earlier. Breath sounds diminished with RA sat of 92%. HRR. BT present and was up to bathroom with 1 assist and had BM; most was incontinent. Did void into toilet at same time. Is able to move self in bed but does so non purposefully. Complained of 4/10 back pain but states it is tolerable. Not using continuous pulse ox, CPAP or SCD's at present time as patient has been agitated and not leaving on. 1:1 staff observation to keep safe. Fall risk score is high and bed alarm is used when staff not able to be in room. SOFTWARE PACKAGING ENGINEER reports patient is unsteady on feet and wavers backward with ambulation. Currently up in bed on all fours. Then, was up on feet and legs gave out requiring assistance of 2 to get him back into bed.
[2020-01-12] MEDS: MORPHINE ER 15 MG TABLET PO (05:23)
[2020-01-12 05:50] LABS: Add Manual Diff / Slide Review NO; Basophils Absolute Auto 200 /uL (0-100); Basophils Percent Auto 2.2 % (0-2); Eosinophils Absolute Auto 200 /uL (0-450); Eosinophils Percent Auto 3.3 % (2-4); Hematocrit 32.9 % (41-53); Hemoglobin 11.2 g/dL (13.5-17.5); Lymphocytes Absolute Auto 900 /uL (1100-4500); Lymphocytes Percent Auto 12.3 % (25-40); Mean Corpuscular HGB Conc 34.1 % (30-36); Mean Corpuscular Hemoglobin 30.4 PG (26-34); Mean Corpuscular Volume 89.3 fL (80-100); Monocytes Absolute Auto 700 /uL (0-900); Monocytes Percent Auto 9.6 % (3-14); Neutrophils Absolute Auto 5200 /uL (1500-7000); Neutrophils Percent Auto 72.6 % (50-75); Platelet Count 327 X10^3/uL (150-400); Red Blood Cell Count 3.69 X10^6/uL (4.5-5.9); Red Cell Distribution Width 14.2 % (11.6-14.8); White Blood Cell Count 7.2 X10^3/uL (4.5-11.0)
--- NOTE | 2020-01-12 07:47 | PC.NURSE ---
Addendum entered by Lulu Flood R.N. 01/12/20 11:56: Talked to about possible Gomes catheter for patient or in/out cath and he states to let the patient sleep. Fax sent regarding hospitalist consult and did not address this. No new orders at this time. He is talking to the . Will bladder scan patient around 1300 to see how much he has in his bladder and then attempt to do vital signs. Just talked to Dr. Arizmendi after he came out of patients room from talking to his . He wants this RN to let patient sleep, not worry about if he has a void this shift, states that he will wake up when he needs to to void and sais not to do a bladder scan on him at this time or Vital Signs. Will write this as a communication order, Coordinator Pete and DNS Elisa Benjamin aware of this. His Long Acting Morphine will also be d/cd as he just started this last saturday per the , and this may be leading to his confusion. Addendum entered by Lulu Flood R.N. 01/12/20 11:37: Patients lisinopril and metoprolol held this am as BP to r.arm was 120s/36 and l. arm with systolic of 50s. Patient is asleep now. in room visiting. Addendum entered by Lulu Flood R.N. 01/12/20 10:15: Patient a bit combative earlier, trying to hit and was kicking. Explained to patient that he should not do this. Patient kept thinking that he was driving a car. He is not reorienting well now, given 100mg of seroquel and patient is more quiet and resting. He is occasionally still lifting up his arms as if he is grabbing at the air. Patient may have been hallucinating. Given 100mg of seroquel and somewhat helpful. He is still trying to get up once in a while. Patient has an intra abdominal drain to his r.side where abcess is, this is putting out brownish colored drainage. Faxed down in surgery to see about getting a hospital consult for patient and his behaviors. Original Note: Assess- Patient is confused x2. He knows his name and date of and his wifes name. He is restless but pleasant and hallucinating. Tries to get up on his knee's and arms in the bed. Per pass down patient is a 2-3 person assist when trying to walk as his legs give out. He had to be in/out cathed earlier this morning and denies having to urinate at this time. He is passing gas. called and she will be into see patient later. He will be given a one time dose of seroquel and is lying on his back at this time. He is easily reoriented and follows direction when asked to do something.
[2020-01-12] MEDS: QUETIAPINE 100 MG TABLET PO (08:21)
[2020-01-12] MEDS: TAMSULOSIN 0.4 MG CAPSULE PO (08:29)
[2020-01-12] MEDS: DOCUSATE 100 MG CAPSULE PO (08:29)
[2020-01-12] MEDS: metroNIDAZOLE 500 MG TABLET PO (08:29)
[2020-01-12] MEDS: PANTOPRAZOLE 40 MG TABLET PO (08:30)
[2020-01-12] MEDS: GABAPENTIN 300 MG CAPSULE PO (08:30)
[2020-01-12] MEDS: SPIRONOLACTONE 25 MG TABLET PO (08:30)
[2020-01-12] MEDS: DULOXETINE 30 MG CAPSULE 60 MG PO (08:30)
[2020-01-12] MEDS: levoFLOXacin 250 MG TABLET 500 MG PO (08:36)
[2020-01-12] MEDS: SODIUM CHLORIDE 0.9% FLUSH 10 ML IV ×2 (08:37→22:11)
[2020-01-12] MEDS: TORSEMIDE 10 MG TABLET PO (08:37)
--- NOTE | 2020-01-12 12:43 | PC.NURSE ---
Addendum entered by Lulu Flood R.N. 01/12/20 14:55: Patient checked x3 and he is dry and no void at present time. He is starting to wake up some. Will pass on to [facility]a to bladder scan patient and see if he can void when he wakes up more. Original Note: Patient is soundly sleeping, normal breathing pattern, and rr wnl. We will check his brief to make sure he did not soil in it. Otherwise, we will let patient sleep.
--- NOTE | 2020-01-12 16:02 | CM.DPC ---
DCP: continued: case received, discussed in Team Rounds and note plan for home vs snf when stable for same. Pt has continued to have ongoing mental status changes and labile behaviors as per RN Lulu's ongoing notes for today. Dr. Arizmendi has been instucting team to let pt sleep. There are concerns re urinary retention. has told Lulu that pt's started getting more confused when he was placed on Morphine and this has been reported to Dr. Arizmendi. DCP team to continue to follow...pt not medically stable yet for d/c today.
--- NOTE | 2020-01-12 17:51 | PC.NURSE ---
Addendum entered by Susan Esquivel R.N. 01/12/20 21:40: Called Dr. Arizmendi regarding patient not voiding this shift, encouraged to use urinal without any success. Bladder scan with 391 ml. Straight catherization as ordered with Dr. Arizmendi, output 400 ml. tolerated procedure well. Patient continue sleeping between care, O2 sat 92% on 2L via NC. Arouses to voice and light touch, follows simple commands. However falls right to sleep when not performing care, Dr. Arizmendi made aware regarding not taking his Flagyl and Lipitor PO. No new orders obtained. Will continue to monitor closely Addendum entered by Susan Esquivel R.N. 01/12/20 19:42: Also made Dr. Arizmendi aware regarding refusal of CPAP and placed on O2. Addendum entered by Susan Esquivel R.N. 01/12/20 18:13: Dr. Arizmendi at bedside, states for staff to let patient sleep. Made aware regarding no void. Original Note: Siena shift note: Patient sleeping, body in relaxed position. Vital signs obtained, woke up slightly enough to see the nurse and fell right back to sleep. Normotensive, HR 86, and afebrile. O2 sat in low 80's, placed on O2 at 2L for support while refusing CPAP. O2 sat at 2L via NC, 89-90%. During assessment patient woke up and smiled, appears to be dreaming. Dressing to right lateral abdomen, CDI with drain with yellow/light brown drainage, scant. Per Communication order obtained from Dr. Arizmendi, patient to sleep in between care. Abdomen round, active BS, and healed surgical incisions noted. Will continue to monitor closely, including output. Amanda 1:1 observation this shift. Patient appears in no pain or discomfort, FLACC 0, body in relaxed and neutral position. Update Sendy via Phone.
--- NOTE | 2020-01-12 18:10 | P.PN_ITS ---
Subjective Subjective Date Patient Seen: 01/12/20 Time Patient Seen: 18:10 Interval history: Delirious overnight, redirectable. Required Seroquel and Zyprexa. No fever minimal abdominal pain. No nausea vomiting tolerating a diet. Exam Vital Signs (past 8 hours): - 01/12/20 16:45 Temperature 97.8 F Pulse Rate 86 Respiratory Rate 14 Blood Pressure 150/71 H Pulse Oximetry 89 L Oxygen Delivery Method Nasal Cannula Oxygen Flow Rate 2 Narrative Exam Narrative: General-no acute distress, disoriented to person and place Abdomen-soft, mildly tender epigastrium, non distended Objective Labs Result Diagrams: 01/12/20 05:25 01/11/20 05:10 Labs: Laboratory Results - last 24 hr 01/12/20 05:25 WBC 7.2 RBC 3.69 L Hgb 11.2 L Hct 32.9 L MCV 89.3 MCH 30.4 MCHC 34.1 RDW 14.2 Plt Count 327 Neut % (Auto) 72.6 Lymph % (Auto) 12.3 L [place] % (Auto) 9.6 Eos % (Auto) 3.3 Baso % (Auto) 2.2 H Neut # (Auto) 5200 Lymph # (Auto) 900 L [place] # (Auto) 700 Eos # (Auto) 200 Baso # (Auto) 200 H Assessment & Plan Assessment & Plan narrative: 74-year-old man with intra-abdominal abscess. He underwent emergency cholecystectomy 3 weeks ago for acute on chronic cholec ystitis complicated by a cystic stump leak. He subsequently underwent an ERCP at an outside hospital had an intra-abdominal drain placement and sustained a NSTEMI. He is now admitted with intra-abdominal fluid collections. # Intra-abdominal fluid collections-continue drain, afebrile white blood cell count normal. Has transition to Levaquin and Flagyl for the past 24 hours. Will decrease the dose of Levaquin from 750 to 500 q.d. for renal clearance. # Toxic encephalopathy/delerium-Seroquel at bedtime. Minimize narcotics, avoid benzodiazepines frequent reorientation. Discontinue long-acting morphine. Renal dose Levaquin. #VTE prophylaxis-prophylactic Lovenox and SCDs Quality VTE Deep Vein Thrombosis/Pulmonary Embolism Present on Admission: No
--- NOTE | 2020-01-13 01:52 | PC.NURSE ---
INJECTION PRESS OPERATOR note patient is sleeping in bed. Breath is equal. Oxygen on at 1L of oxygen.
[2020-01-13 05:00] VITALS: BP 138/76; PULSE 99; RESP 18; TEMP 36.2; O2SAT 96
--- NOTE | 2020-01-13 05:50 | PC.NURSE ---
Bladder scanned at 0520, 354 ml noted. Patient stated he felt like he was having a bowel movement. Stood the patient up with the assistance of the STEPHANIE Santoro and a front wheel walker, to use the bedside commode. Patient had a large, loose stool and urinated into the commode. Post void residual checked, 159ml noted at 0550.
[2020-01-13 06:15] LABS: Add Manual Diff / Slide Review NO; Basophils Absolute Auto 100 /uL (0-100); Basophils Percent Auto 1.3 % (0-2); Eosinophils Absolute Auto 200 /uL (0-450); Eosinophils Percent Auto 2.7 % (2-4); Hematocrit 36.9 % (41-53); Hemoglobin 12.2 g/dL (13.5-17.5); Lymphocytes Absolute Auto 1900 /uL (1100-4500); Lymphocytes Percent Auto 21.6 % (25-40); Mean Corpuscular Hemoglobin 30.3 PG (26-34); Mean Corpuscular Volume 91.7 fL (80-100); Monocytes Absolute Auto 1200 /uL (0-900); Neutrophils Absolute Auto 5400 /uL (1500-7000); Neutrophils Percent Auto 60.4 % (50-75); Platelet Count 352 X10^3/uL (150-400); Red Blood Cell Count 4.02 X10^6/uL (4.5-5.9); Red Cell Distribution Width 14.4 % (11.6-14.8); White Blood Cell Count 8.9 X10^3/uL (4.5-11.0)
[2020-01-13 08:18] VITALS: BP 132/68; PULSE 93; RESP 17; O2SAT 95
[2020-01-13] MEDS: DULOXETINE 30 MG CAPSULE 60 MG PO (08:22)
[2020-01-13] MEDS: lisinopriL 10 MG TABLET 5 MG PO (08:22)
[2020-01-13] MEDS: METOPROLOL ER 50 MG TABLET 75 MG PO (08:24)
[2020-01-13] MEDS: metroNIDAZOLE 500 MG TABLET PO (08:29)
[2020-01-13] MEDS: PANTOPRAZOLE 40 MG TABLET PO (08:30)
[2020-01-13] MEDS: OXYCODONE IR 10 MG TABLET PO (08:30)
[2020-01-13] MEDS: TAMSULOSIN 0.4 MG CAPSULE PO (08:30)
[2020-01-13] MEDS: SPIRONOLACTONE 25 MG TABLET PO (08:30)
[2020-01-13 09:23] LABS: Blood Urea Nitrogen 24 mg/dL (9-20); Carbon Dioxide 29 mmol/L (22-32); Chloride 105 mmol/L (98-107); Estimated Glomerular Filt Rate 58.9 mL/min (>60); Glucose 99 mg/dL (80-110); HEMOLYSIS < 15 (0-50); Potassium 4.3 mmol/L (3.4-5.1); Sodium 146 mmol/L (137-145)
--- NOTE | 2020-01-13 09:30 | DI.CT.S_ITS ---
PROCEDURE: CT ABDOMEN PELVIS W CON INDICATIONS: Intra abdominal abscess, clinically reported prior perforation of a duodenal ulcer with subsequent peritoneal abscess formation. Drainage of a right lateral perihepatic abscess. Evaluate abscess adjacent to or within the superior border of the subdiaphragmatic liver on the right. TECHNIQUE: After the administration of intravenous contrast, 5 mm thick sections acquired from the diaphragm to the symphysis. 5 mm coronal and sagittal reformats were acquired. For radiation dose reduction, the following was used: automated exposure control, adjustment of mA and/or kV according to patient size. COMPARISON: [facility], CT, KIDNEY/ URETER/BLADDER, 09/12/2016, 7:22. [facility], CT, CT CHEST ABD PEL W CON, 12/20/2019, 7:00. [facility], CT, CT ANGIO CHEST ABD, 10/28/2016, 2:26. [facility], CT, CT ABDOMEN PELVIS W CON, 01/08/2020, 9:13. [facility], CT, CT ABDOMEN PELVIS W CON, 12/16/2019, 11:14. FINDINGS: Image quality: Excellent. ABDOMEN: Lung bases: Lung bases are unchanged, and again partially visualized is a nodule within the right lower lobe, sharply demarcated, and present since at least CT scanning from 09/12/16 measuring 1.3 cm in maximal dimension. Heart size is normal. Solid organs: Liver is normal in size and enhancement. The previously larger right lateral fluid collection which was percutaneously drained as further mildly reduced in size with reference to the CT from 01/08/20, with a percutaneous pigtail catheter appropriately positioned centrally within this fluid collection. The degree of perihepatic enhancement has diminished in this area. At the superior margin of the right hepatic lobe and extrahepatic small fluid collection has further diminished in size, now measuring approximately 2.8 x 3.4 cm with only a minimal degree of residual fluid within. A second ovoid fluid collection is present slightly more superiorly and posteriorly, with an appearance most likely within the liver but potentially loculated and impinging on the upper liver margin, having diminished in size from 5.8 x 5.0 x 4.3 cm 01/08/22 no 4.7 x 3.7 x 3.1 cm. Adjacent perihepatic enhancement has diminished. Gallbladder is absent. Biliary system is non dilated and demonstrates mild pneumobilia associated with a small distal common duct stent crossing the ampulla and entering the duodenal lumen extending to the transition between the descending and transverse duodenum.. Pancreas enhances normally. Spleen is normal in size and enhancement. No adrenal nodules. Kidneys demonstrate normal size and enhancement, without hydronephrosis. Peritoneum and bowel: Bowel loops demonstrate normal wall thickness and caliber. No free fluid or air. Nodes and vessels: No retroperitoneal or mesenteric adenopathy by size criteria. Aorta and inferior vena cava are normal in size. Miscellaneous: No ventral hernias. PELVIS: Genitourinary: Bladder wall thickness is normal. Miscellaneous: No inguinal hernias or adenopathy. A small loculated rim-enhancing fluid collection within the left hemipelvis near the cul-de-sac, seen on series 2 image 64, was also previously present 01/08/20 and also has diminished in size to approximately half the prior volume, with maximal dimensions now measuring only 2.8 cm AP and 1.7 cm transverse. Bones: No suspicious bony lesions. No vertebral body compression fractures. IMPRESSION: 1. Stable appearing chronic nodule left lower lobe, present at least since September 2016. 2. Interval reduction in size of a right lateral perihepatic fluid collection which contains a percutaneous pigtail drain, and no adjacent new fluid collection has developed. 3. Interval reduction in size of a perihepatic superior anterior small fluid collection, now minimal in size. Resolution of several small gas bubbles in this fluid collection. 4. Interval reduction in size of a ovoid fluid collection either within the far superior sub-diaphragmatic margin of the liver parenchyma are immediately adjacent, previously measuring 5.8 x 5.0 x 4.3 cm and now measuring 4.7 x 3.7 x 3.1 cm in maximal AP, transverse and craniocaudad dimensions. Access to this fluid collection is not available for percutaneous drainage given the intervening lung and pleural surface. 5. Interval reduction in size of a small rim enhancing fluid collection within the lower margin of the left hemipelvis. 6. Interval placement of a biliary drainage catheter, resulting in slight pneumobilia. Dictated by: Reinier Randle M.D. on 01/13/2020 at 10:26 Approved by: Reinier Randle M.D. on 01/13/2020 at 11:04
--- NOTE | 2020-01-13 09:31 | PM.PN.1 ---
Subjective Subjective Date Patient Seen: 01/13/20 Time Patient Seen: 09:31 Interval history: Was delirious yesterday during the day slept with the aid of Seroquel feels much better today. Exam Vital Signs (past 8 hours): - 01/13/20 05:00 01/13/20 08:18 Temperature 97.2 F L Pulse Rate 99 H 93 H Respiratory Rate 18 17 Blood Pressure 138/76 132/68 Pulse Oximetry 96 95 Oxygen Delivery Method Nasal Cannula Oxygen Flow Rate 1.5 Narrative Exam Narrative: General adult male alert oriented today Abdomen soft mildly tender epigastrium, drain remains with Objective Labs Result Diagrams: 01/13/20 05:55 01/13/20 08:50 Labs: Laboratory Results - last 24 hr 01/13/20 01/13/20 05:55 08:50 WBC 8.9 RBC 4.02 L Hgb 12.2 L Hct 36.9 L MCV 91.7 MCH 30.3 MCHC 33.0 RDW 14.4 Plt Count 352 Neut % (Auto) 60.4 Lymph % (Auto) 21.6 L [place] % (Auto) 14.0 Eos % (Auto) 2.7 Baso % (Auto) 1.3 Neut # (Auto) 5400 Lymph # (Auto) 1900 [place] # (Auto) 1200 H Eos # (Auto) 200 Baso # (Auto) 100 Sodium 146 H Potassium 4.3 Chloride 105 Carbon Dioxide 29 BUN 24 H Creatinine 1.20 Estimated GFR 58.9 L BUN/Creatinine Ratio 20.0 Glucose 99 Calcium 9.0 Quality VTE Deep Vein Thrombosis/Pulmonary Embolism Present on Admission: No
[2020-01-13] MEDS: TORSEMIDE 10 MG TABLET PO (09:55)
[2020-01-13] MEDS: SODIUM CHLORIDE 0.9% FLUSH 10 ML IV ×2 (09:55→10:16)
[2020-01-13] MEDS: levoFLOXacin 500 MG TABLET PO (09:55)
[2020-01-13 10:00] VITALS: O2SAT 97
[2020-01-13 10:05] VITALS: O2SAT 90
[2020-01-13] MEDS: SODIUM CHLORIDE 0.9% 1,000 ML 1000 ML IV (10:18)
[2020-01-13 10:31] VITALS: PULSE 77; RESP 16; O2SAT 97
[2020-01-13 11:25] VITALS: BP 135/56; PULSE 80; RESP 20; O2SAT 91
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
--- NOTE | 2020-01-13 12:59 | CM.DPC ---
Addendum entered by Lizzie Mooney R.N. 01/13/20 14:02: Patient has discharge orders to go home. Patient has improved with mobility. Gregorio from [facility] came to assess patient, and gave him update. Confirmed this with nurse, Tali, as well. 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 Original Note: DCP Cont: P.T. worked with patient today. Patient has noted decreased confusion, alert today. Had spoken to Alanis at [facility] this morning, and stated that patient may need to be assessed by someone at [facility]. Alanis called back and stated that Gregorio from [facility] will be here to see patient. Will also update later today. Patient could potentially go home versus skilled. Will see what [facility] states in their assessment. P: DCP to continue to follow closely. Patient will be assessed by [facility] today. Lizzie Mooney RN/Auto Body Builder Apprentice
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
== END 2020-01-13 14:49 | disposition home or self-care (01) | DRG 862 ==
LOC: ED 15:18 → AC 15:45
PROVIDERS: Surgery; Admitting Provider Surgery; Emergency Provider Emergency Medicine; PCP Internal Medicine; Referring Provider Emergency Medicine; Visit Provider Surgery
DX: T81.43XA Infection following a procedure, organ and space surgical site, initial encounter (principal); K65.1 Peritoneal abscess; I21.4 Non-ST elevation (NSTEMI) myocardial infarction; G92 Toxic encephalopathy; I50.20 Unspecified systolic (congestive) heart failure; J90 Pleural effusion, not elsewhere classified; I31.3 Pericardial effusion (noninflammatory); J44.9 Chronic obstructive pulmonary disease, unspecified; I25.10 Atherosclerotic heart disease of native coronary artery without angina pectoris; G47.33 Obstructive sleep apnea (adult) (pediatric); T43.595A Adverse effect of other antipsychotics and neuroleptics, initial encounter; T40.605A Adverse effect of unspecified narcotics, initial encounter; Y92.230 Patient room in hospital as the place of occurrence of the external cause; Z95.5 Presence of coronary angioplasty implant and graft; G89.29 Other chronic pain; K76.9 Liver disease, unspecified; R91.1 Solitary pulmonary nodule; K57.90 Diverticulosis of intestine, part unspecified, without perforation or abscess without bleeding; N40.0 Benign prostatic hyperplasia without lower urinary tract symptoms; N28.1 Cyst of kidney, acquired; N20.0 Calculus of kidney; Z90.49 Acquired absence of other specified parts of digestive tract; Z79.891 Long term (current) use of opiate analgesic; Z87.891 Personal history of nicotine dependence
CPT/HCPCS: 36415; 74177; 80048; 80053; 80076; 82150; 83605; 83690; 84145; 85025; 85610; 85651; 85730; 86850; 86900; 86901; 87040; 94640; 94660; 94760; 94762; 96365; 97161; 97530; 99220; 99222; 99231; 99232; 99238; 99284; G0378; J1630; J2543; Q9967

== ENCOUNTER → 2020-01-23 09:36 | Outpatient (CLI) | payer MEDICARE, SELFPAY ==
[2020-01-13 14:43] VITALS: BMI 27.2
--- NOTE | 2020-01-23 | DI.MRI.S_ITS ---
PROCEDURE: MR THORACIC SPINE WO CON INDICATIONS: SPINAL STENOSIS TECHNIQUE: Noncontrast sagittal T1 spine echo and T2 fast spin echo, sagittal STIR, axial T1 and T2 fast spin echo through the thoracic spine. COMPARISON: None. FINDINGS: Image quality: Excellent. Alignment and Curvature: There is normal bony alignment. Bone Marrow: Marrow is of normal overall signal. No acute vertebral body compression fractures. There is a chronic partially visualized superior endplate L2 compression fracture, involving the middle third of the vertebral body, without significant anterior wedging. Very slight posterior deviation of the L1-L2 disc annulus is associated. Spinal Cord: Visualized spinal cord is normal in size and signal. Paraspinous Soft Tissues: No paravertebral masses. Miscellaneous: On axial images, central canal and foramina appear widely patent at all scanned levels. IMPRESSION: Mild chronic appearing degenerative disc disease is present along the cervical thoracic junction in the thoracic spine. No disc bulge or herniation is seen, no significant spinal or foraminal stenosis is found. L2 mild to moderate compression fracture is present, partially visualized, chronic in appearance and predominantly involving the middle third of the vertebral body without significant retropulsion of the associated disc margins or posterior vertebral body of L2 into the spinal canal. Dictated by: Reinier Randle M.D. on 01/25/2020 at 15:06 Approved by: Reinier Randle M.D. on 01/25/2020 at 15:09
--- NOTE | 2020-01-23 | DI.MRI.S_ITS ---
PROCEDURE: MR LUMBAR SPINE WO CON INDICATIONS: SPINAL STENOSIS TECHNIQUE: Noncontrast sagittal T1 spin echo and T2 fast echo, sagittal STIR, axial T1 and T2 fast spin echo through the lumbar spine. In cases with scoliosis, additional coronal T2 fast spin echo may be performed. COMPARISON: [facility], CR, XR LUMBAR SPINE WITH OLBIQUES PLUS FLEXION EXTENSION, 12/01/2018, 9:30. [facility], , MR LUMBAR SPINE WO CON, 12/10/2018, 7:30. FINDINGS: Image quality: Excellent. Alignment and Curvature: The same numbering system which was used on the prior examination will be used on the current examination. Recommend correlation with plain films for numbering purposes prior to lumbar spinal intervention. Bone Marrow: Marrow is of normal overall signal. No acute vertebral body compression fractures. No change in moderate chronic wedging of L2. There is mild reactive signal within the superior L2 endplate. Mild reactive signal within the endplates adjacent to the L4-L5 intervertebral disc. Spinal Cord: Conus medullaris terminates at the L1-L2 disc space level. Visualized cord demonstrates normal signal and size. Paraspinous Soft Tissues: No paravertebral masses. Bilateral renal cysts are present, as before. L1-L2: Mild disc desiccation. Mild diffuse disc bulge. Mild facet and ligamentum flavum hypertrophy. Mild canal stenosis. Mild bilateral foraminal stenosis. No change. L2-L3: Mild disc desiccation. Mild bilateral facet and ligamentum flavum hypertrophy. Mild canal stenosis. No foraminal stenosis. L3-L4: Mild disc desiccation. Mild bilateral facet and ligamentum flavum hypertrophy. Mild canal stenosis. Mild bilateral foraminal stenosis. Unchanged. L4-L5: Moderate disc height loss and desiccation. Mild diffuse disc bulge. Mild bilateral facet hypertrophy. Mild canal stenosis. Moderate bilateral foraminal stenosis. No change. L5-S1: Mild disc height loss and desiccation. Mild bilateral facet hypertrophy. No significant canal, nor foraminal stenosis. No change. IMPRESSION: 1. Multilevel degenerative disc and facet disease, as well as ligamentum flavum hypertrophy and epidural lipomatosis. 2. Mild multilevel canal stenoses. 3. Multilevel foraminal stenoses, worst at L4-L5, where there are moderate foraminal stenoses present. 4. Recommend correlation with plain films for numbering purposes prior to any lumbar spinal intervention. Dictated by: Rigoberto Villanueva M.D. on 01/25/2020 at 11:08 Approved by: Rigoberto Villanueva M.D. on 01/25/2020 at 11:12
== END ==
PROVIDERS: PCP Internal Medicine; Referring Provider Internal Medicine; Visit Provider Internal Medicine
DX: M51.16 Intervertebral disc disorders with radiculopathy, lumbar region (principal); M48.061 Spinal stenosis, lumbar region without neurogenic claudication; M51.34 Other intervertebral disc degeneration, thoracic region; M48.56XA Collapsed vertebra, not elsewhere classified, lumbar region, initial encounter for fracture; E88.2 Lipomatosis, not elsewhere classified
CPT/HCPCS: 72146; 72148

== ENCOUNTER → 2020-03-11 06:55 | Outpatient (CLI) | payer MEDICARE, SELFPAY ==
[2020-01-13 14:43] VITALS: BMI 27.2
[2020-03-11 07:15] LABS: Add Manual Diff / Slide Review NO; Basophils Absolute Auto 100 /uL (0-100); Basophils Percent Auto 0.8 % (0-2); Eosinophils Absolute Auto 300 /uL (0-450); Eosinophils Percent Auto 4.7 % (2-4); Hematocrit 36.4 % (41-53); Hemoglobin 12.3 g/dL (13.5-17.5); Lymphocytes Absolute Auto 2300 /uL (1100-4500); Lymphocytes Percent Auto 36.5 % (25-40); Mean Corpuscular HGB Conc 33.8 % (30-36); Mean Corpuscular Hemoglobin 30.7 PG (26-34); Mean Corpuscular Volume 90.7 fL (80-100); Monocytes Absolute Auto 600 /uL (0-900); Monocytes Percent Auto 9.4 % (3-14); Neutrophils Absolute Auto 3000 /uL (1500-7000); Neutrophils Percent Auto 48.6 % (50-75); Platelet Count 266 X10^3/uL (150-400); Red Blood Cell Count 4.02 X10^6/uL (4.5-5.9); Red Cell Distribution Width 15.3 % (11.6-14.8); White Blood Cell Count 6.3 X10^3/uL (4.5-11.0)
[2020-03-11 07:27] LABS: Alanine Aminotransferase 18 IU/L (<50); Albumin 3.9 g/dL (3.5-5.0); Albumin Globulin Ratio 1.2 (1.0-2.8); Alkaline Phosphatase 77 U/L (38-126); Amylase 90 U/L (30-110); Aspartate Aminotransferase 27 IU/L (17-59); BUN Creatinine Ratio 21.6 (6-22); Bilirubin Total 0.6 mg/dL (0.2-1.3); Blood Urea Nitrogen 21 mg/dL (9-20); Calcium 9.4 mg/dL (8.4-10.2); Carbon Dioxide 29 mmol/L (22-32); Chloride 106 mmol/L (98-107); Estimated Glomerular Filt Rate > 60.0 mL/min (>60); Globulin 3.3 g/dL (1.7-4.1); Glucose 109 mg/dL (80-110); HEMOLYSIS < 15 (0-50); Lipase 159 U/L (23-300); Potassium 4.5 mmol/L (3.4-5.1); Sodium 141 mmol/L (137-145); Total Protein 7.2 g/dL (6.3-8.2)
[2020-03-11 07:31] LABS: High Sensitivity CRP - Cardiac 0.8 mg/L (1.0-3.0)
[2020-03-11 07:35] LABS: Erythrocyte Sedimentation Rate 31 MM/HR (0-15)
--- NOTE | 2020-03-11 08:54 | DI.CT.S_ITS ---
PROCEDURE: CT ABDOMEN PELVIS W CON INDICATIONS: Peritoneal abscess TECHNIQUE: After the administration of oral and intravenous contrast, 5 mm thick sections acquired from the diaphragms to the symphysis. 5 mm thick coronal and sagittal reformats were performed. For radiation dose reduction, the following was used: automated exposure control, adjustment of mA and/or kV according to patient size. COMPARISON: [facility], CT, CT ABDOMEN PELVIS W CON, 01/13/2020, 9:33. FINDINGS: Image quality: Excellent. ABDOMEN: Lung bases: Lung bases are clear. Heart size is normal. Solid organs: Very small, slightly lobulated lower lateral subcapsular thickening along the lateral inferior aspect of the liver. Mild perihepatic fat stranding caudally and posteriorly. No definite residual subcapsular fluid collection. The liver is otherwise normal. Gallbladder surgically absent. There is expected prominence of the extrahepatic biliary system without visible calcification. Pancreas enhances normally. Trace amount of perisplenic fluid along the inferior tip. Spleen is otherwise normal in size and enhancement. No adrenal nodules. Kidneys are normal in size and enhancement, without hydronephrosis. Stable staghorn calculus in the upper pole of the left kidney. Other nonobstructing punctate intrarenal calcifications in the mid and lower pole left kidney, and lower pole right kidney. The largest in the right kidney measures 7 mm. An ovoid parapelvic cyst in the upper pole left kidney measures 3.3 cm, stable. No hydronephrosis. Peritoneum and bowel: There is thickening along the dome of the liver without a discrete fluid collection present. Interval resolution of previously seen subdiaphragmatic fluid collections. Stomach, small bowel, and colon loops are normal in caliber and wall thickness. Sigmoid diverticulosis without pericolonic inflammation. Normal quantity of retained stool. Normal appendix. No free fluid or air. No new intraperitoneal fluid collections. Nodes and vessels: No retroperitoneal or mesenteric adenopathy. Aorta and inferior vena cava are normal in caliber. The moderate abdominal aortic atherosclerosis. Miscellaneous: No ventral hernias. Transverse metallic surgical shelby over the anterior abdomen. PELVIS: Genitourinary: Bladder wall thickness is normal. Mild prostatomegaly. Miscellaneous: No inguinal hernias or adenopathy. Resolution of prior left pelvic fluid collection. Bones: No suspicious bony lesions. Chronic L2 compression fracture.. Sclerotic degenerative change in the right acetabulum. IMPRESSION: 1. Interval resolution of perihepatic subcapsular fluid collections and removal of a percutaneous drain. 2. Interval removal of biliary stent without residual pneumobilia or biliary dilatation. 3. Resolution of small left pelvic fluid collection. 4. Bilateral nephrolithiasis without obstruction. 5. Sigmoid diverticulosis without acute diverticulitis. Dictated by: Nolvia Ramírez M.D. on 03/11/2020 at 8:58 Approved by: Nolvia Ramírez M.D. on 03/11/2020 at 9:14
== END ==
PROVIDERS: PCP Internal Medicine; Referring Provider Internal Medicine; Visit Provider Internal Medicine
DX: K65.1 Peritoneal abscess (principal); N20.0 Calculus of kidney; K57.30 Diverticulosis of large intestine without perforation or abscess without bleeding; I70.0 Atherosclerosis of aorta; Z90.49 Acquired absence of other specified parts of digestive tract
CPT/HCPCS: 36415; 74177; 80053; 82150; 83690; 85025; 85651; 86140; Q9967

== ENCOUNTER → 2020-04-20 09:04 | Outpatient (CLI) | payer MEDICARE, SELFPAY ==
[2020-01-13 14:43] VITALS: BMI 27.2
--- NOTE | 2020-04-20 | DI.RAD.S_ITS ---
PROCEDURE: XR CHEST 2V INDICATIONS: Pleurodynia TECHNIQUE: 2 views of the chest were acquired. COMPARISON: [facility], , XR CHEST 1V, 12/20/2019, 4:40. [facility], , CHEST 1 VIEW, 06/03/2017, 10:28. FINDINGS: Surgical changes and devices: None. Lungs and pleura: Lungs are abnormal, with pulmonary hyperexpansion and mild interstitial prominence there is a focal radiodensity is ovoid, measuring approximately 2.5 x 1.5 cm, superimposed on the lateral left lower lobe potentially a manifestation of mass lesion.. No pleural effusions or pneumothorax. Mediastinum: Mediastinal contours are normal. Heart size is normal. Bones and chest wall: No suspicious bony abnormalities. Soft tissues appear unremarkable. IMPRESSION: Possible mass lesion left lower lobe, in a patient with what appears to be severe COPD and presumed chronic smoking history. Followup PA and lateral chest plain film is recommended for more accurate assessment and if this density persists CT scanning likely will become necessary. Dictated by: Reinier Randle M.D. on 04/20/2020 at 9:40 Approved by: Reinier Randle M.D. on 04/20/2020 at 9:42
== END ==
PROVIDERS: PCP Internal Medicine; Referring Provider Physician Assistant; Visit Provider Physician Assistant
DX: R07.81 Pleurodynia (principal)
CPT/HCPCS: 71046

== ENCOUNTER → 2020-05-04 09:49 | Outpatient (CLI) | payer MEDICARE, SELFPAY ==
[2020-01-13 14:43] VITALS: BMI 27.2
--- NOTE | 2020-05-04 | DI.RAD.S_ITS ---
PROCEDURE: XR CHEST 2V INDICATIONS: MASS OF LEFT LUNG TECHNIQUE: 2 views of the chest were acquired. COMPARISON: [facility], CR, XR CHEST 2V, 04/20/2020, 8:08. FINDINGS: Surgical changes and devices: None. Lungs and pleura: Lungs are clear. No pleural effusions or pneumothorax. Mediastinum: Mediastinal contours are normal. Heart size is normal. Bones and chest wall: No suspicious bony abnormalities. Soft tissues appear unremarkable. IMPRESSION: No acute disease Dictated by: Earl Dueñas M.D. on 05/04/2020 at 13:05 Approved by: Earl Dueñas M.D. on 05/04/2020 at 13:06
== END ==
PROVIDERS: PCP Internal Medicine; Referring Provider Internal Medicine; Visit Provider Physician Assistant
DX: R91.8 Other nonspecific abnormal finding of lung field (principal)
CPT/HCPCS: 71046

== ENCOUNTER → 2020-06-23 14:00 | Outpatient (CLI) | payer MEDICARE, SELFPAY ==
[2020-01-13 14:43] VITALS: BMI 27.2
[2020-06-24 14:12] LABS: COVID19 Sendout Not Detected (Not Detected)
== END ==
PROVIDERS: PCP Internal Medicine; Visit Provider Physician Assistant
DX: Z11.59 Encounter for screening for other viral diseases (principal)
CPT/HCPCS: 87635

== ENCOUNTER → 2020-07-01 19:33 | Outpatient (ROUT) | payer MEDICARE, SELFPAY ==
[2020-01-13 14:43] VITALS: BMI 27.2
[2020-07-01 19:44] LABS: Hematocrit 39.5 % (41-53); Hemoglobin 13.4 g/dL (13.5-17.5); Mean Corpuscular HGB Conc 33.9 % (30-36); Mean Corpuscular Hemoglobin 31.1 PG (26-34); Mean Corpuscular Volume 91.7 fL (80-100); Platelet Count 234 X10^3/uL (150-400); Red Blood Cell Count 4.31 X10^6/uL (4.5-5.9); Red Cell Distribution Width 13.9 % (11.6-14.8); White Blood Cell Count 5.9 X10^3/uL (4.5-11.0)
[2020-07-01 19:47] LABS: Appearance Urine UA CLEAR; Bilirubin Urine UA NEGATIVE (NEGATIVE); Color Urine UA YELLOW; Glucose Urine UA NEGATIVE (Negative); Ketones Urine UA NEGATIVE (NEGATIVE); Leukocyte Esterase Urine UA NEGATIVE (NEGATIVE); Nitrite Urine UA NEGATIVE (Negative); Occult Blood Urine UA 1+ (Negative); Protein Urine UA NEGATIVE (Negative); Urobilinogen Urine UA 0.2 E.U./dL (0.2); pH Urine UA 5.5 (4.5-8.0)
[2020-07-01 19:53] LABS: Alanine Aminotransferase 24 IU/L (<50); Albumin 4.2 g/dL (3.5-5.0); Albumin Globulin Ratio 1.4 (1.0-2.8); Alkaline Phosphatase 91 U/L (38-126); Aspartate Aminotransferase 33 IU/L (17-59); BUN Creatinine Ratio 18.3 (6-22); Bilirubin Total 0.8 mg/dL (0.2-1.3); Blood Urea Nitrogen 19 mg/dL (9-20); Calcium 9.2 mg/dL (8.4-10.2); Carbon Dioxide 30 mmol/L (22-32); Chloride 104 mmol/L (98-107); Estimated Glomerular Filt Rate > 60.0 mL/min (>60); Glucose 101 mg/dL (80-110); HEMOLYSIS < 15 (0-50); Potassium 4.8 mmol/L (3.4-5.1); Sodium 139 mmol/L (137-145); Total Protein 7.2 g/dL (6.3-8.2)
[2020-07-01 19:54] LABS: C-Reactive Protein Quant < 0.5 mg/dL (<1.0)
[2020-07-01 20:01] LABS: Bacteria Urine Occasional (0-1); Culture Indicated Urine Cult Not Indicated; Mucus Urine 2+ (Negative); RBC Urine 10-30/HPF (0-5/HPF); Squamous Epithelial Cell Urine 1-5 /HPF (0-5/HPF); Transitional Epi Cells Urine 1-5/HPF (0-5/HPF); WBC Urine 1-5/HPF (0-5/HPF)
[2020-07-01 20:30] LABS: Neutrophils Absolute Manual 3481 /uL (3000-5900); Total Cells Counted 100
[2020-07-01 20:33] LABS: RBC Morphology Normal Morphology
[2020-07-01 20:34] LABS: Erythrocyte Sedimentation Rate 10 MM/HR (0-15)
== END ==
PROVIDERS: PCP Internal Medicine; Visit Provider Internal Medicine
DX: M54.16 Radiculopathy, lumbar region (principal); G89.4 Chronic pain syndrome
CPT/HCPCS: 80053; 81001; 85025; 85651; 86140

== ENCOUNTER → 2020-07-08 11:53 | Outpatient (CLI) | payer MEDICARE, SELFPAY ==
[2020-01-13 14:43] VITALS: BMI 27.2
--- NOTE | 2020-07-08 | DI.MRI.S_ITS ---
PROCEDURE: MR THORACIC SPINE WO CON INDICATIONS: RADICULOPATHY TECHNIQUE: Noncontrast sagittal T1 spine echo and T2 fast spin echo, sagittal STIR, axial T1 and T2 fast spin echo through the thoracic spine. COMPARISON: [facility], CT, CT CHEST ABD PEL W CON, 12/20/2019, 7:00. [facility], CT, CT ANGIO CHEST ABD, 10/28/2016, 2:26. [facility], MR, MR THORACIC SPINE WO CON, 01/23/2020, 10:18. FINDINGS: Image quality: Excellent. Alignment and Curvature: There is normal bony alignment. Bone Marrow: Marrow is of normal overall signal. No acute vertebral body compression fractures. Mild anterior physiologic wedging of the T2 and T3 vertebral bodies noted. Spinal Cord: Visualized spinal cord is normal in size and signal. Paraspinous Soft Tissues: No paravertebral masses. 1.4 centimeter nodule in the right lower lobe is stable compared to prior CT scans. Miscellaneous: Moderate T2-T3, T3-T4, T4-T5, T5-T6, T6-T7, T7-T8, T8-T9 and T9-T10 degenerate disc disease. Mild T1-T2, T10-T11 and T11-T12 degenerative disc disease. Small T6-T7 central disc protrusion. Mild facet arthropathy noted throughout the thoracic spine. No central canal narrowing. Moderate right T4-T5 neural foraminal narrowing. Moderate bilateral T9-T10 neural foraminal narrowing. No neural compression. IMPRESSION: 1. Multilevel degenerative disease. 2. Multilevel facet arthropathy. 3. No central stenosis. 4. Moderate right T4-T5 and bilateral T9-T10 neural foraminal narrowing. 5. No neural compression. 6. No vertebral body compression fracture. Dictated by: Jocelin Rosales MD, PhD on 07/08/2020 at 15:03 Approved by: Jocelin Rosales MD, PhD on 07/08/2020 at 15:08
--- NOTE | 2020-07-08 11:55 | DI.MRI.S_ITS ---
PROCEDURE: MR LUMBAR SPINE WO CON INDICATIONS: Radiculopathy, lumbar region TECHNIQUE: Noncontrast sagittal T1 spin echo and T2 fast echo, sagittal STIR, axial T1 and T2 fast spin echo through the lumbar spine. In cases with scoliosis, additional coronal T2 fast spin echo may be performed. COMPARISON: [facility], CR, XR LUMBAR SPINE WITH OLBIQUES PLUS FLEXION EXTENSION, 12/01/2018, 9:30. [facility], MR, MR LUMBAR SPINE WO CON, 12/10/2018, 7:30. [facility], MR, MR LUMBAR SPINE WO CON, 01/23/2020, 9:55. FINDINGS: Image quality: Excellent. Alignment and Curvature: There is normal bony alignment. Bones: Transitional anatomy with right amber-sacralization of the L5 vertebral body. Postsurgical changes noted at the L4-L5 level. Marrow is of normal overall signal. Chronic L2 compression fracture is stable compared to prior exams. No acute vertebral body compression fractures. Spinal Cord: Conus medullaris terminates at the L1 level. Visualized cord demonstrates normal signal and size. Paraspinous Soft Tissues: No paravertebral masses. L1-L2: Loss of disc signal. Mild, diffuse disc bulge. Mild bilateral facet hypertrophy. Mild narrowing of the central canal. Mild bilateral neural foraminal narrowing. No neural compression. L2-L3: Loss of disc signal. Mild bilateral facet hypertrophy. Mild narrowing of the central canal. No neural foraminal narrowing. No neural compression. L3-L4: Loss of disc signal. Mild, diffuse disc bulge. Mild bilateral facet hypertrophy. Mild narrowing of the central canal. Mild bilateral neural foraminal narrowing. No neural compression. L4-L5: Loss of disc signal and slight loss of disc height. Mild, diffuse disc bulge. Mild bilateral facet hypertrophy. Mild narrowing of the central canal. Moderate bilateral neural foraminal narrowing. No neural compression. L5-S1: Loss of disc signal. Mild bilateral facet hypertrophy. No central stenosis. No neural foraminal narrowing. No neural compression. IMPRESSION: 1. Multilevel degenerative disc disease. 2. Multilevel facet arthropathy. 3. Mild L1-L2, L2-L3, L3-L4 and L4-L5 central canal narrowing. 4. Moderate bilateral L4-L5 neural foraminal narrowing. Mild bilateral L1-L2 and L3-L4 neural foraminal narrowing. 5. No neural compression. Dictated by: Jocelin Rosales MD, PhD on 07/08/2020 at 15:09 Approved by: Jocelin Rosales MD, PhD on 07/08/2020 at 15:16
== END ==
PROVIDERS: PCP Internal Medicine; Referring Provider Internal Medicine; Visit Provider Internal Medicine
DX: M51.16 Intervertebral disc disorders with radiculopathy, lumbar region (principal); M47.26 Other spondylosis with radiculopathy, lumbar region; M47.27 Other spondylosis with radiculopathy, lumbosacral region; M48.061 Spinal stenosis, lumbar region without neurogenic claudication; M51.14 Intervertebral disc disorders with radiculopathy, thoracic region; M47.24 Other spondylosis with radiculopathy, thoracic region
CPT/HCPCS: 72146; 72148

== ENCOUNTER → 2020-07-22 09:39 | Outpatient (CLI) | payer MEDICARE, SELFPAY ==
[2020-01-13 14:43] VITALS: BMI 27.2
--- NOTE | 2020-07-22 | DI.RAD.S_ITS ---
PROCEDURE: XR PELVIS 1-2V INDICATIONS: pain involving left buttock TECHNIQUE: 1 view(s) of the pelvis acquired. COMPARISON: [facility], CR, KUB XRAY (1 VIEW ABDOMEN), 10/02/2016, 10:00. [facility], CT, CT ABDOMEN PELVIS W CON, 03/11/2020, 7:38. FINDINGS: Bones: No fractures or dislocations. No suspicious bony lesions. There is moderate superior joint space narrowing seen of both hips, with associated remodeling changes with subchondral sclerosis and osteophyte formation. Soft tissues: Visualized bowel gas pattern is normal. No suspicious soft tissue calcifications. Atherosclerotic calcification is noted. Lower abdominal sutures are seen. IMPRESSION: Moderate degenerative change is seen of both hips. Dictated by: Arnaldo Colbert M.D. on 07/22/2020 at 10:01 Approved by: Arnaldo Colbert M.D. on 07/22/2020 at 10:02
== END ==
PROVIDERS: PCP Internal Medicine; Referring Provider Internal Medicine; Visit Provider Internal Medicine
DX: M81.0 Age-related osteoporosis without current pathological fracture (principal); S32.020S Wedge compression fracture of second lumbar vertebra, sequela; M79.18 Myalgia, other site; M51.36 Other intervertebral disc degeneration, lumbar region; Z87.891 Personal history of nicotine dependence
CPT/HCPCS: 72170; 77080

== ENCOUNTER → 2020-08-25 19:17 | Outpatient (ROUT) | payer MEDICARE, SELFPAY ==
[2020-01-13 14:43] VITALS: BMI 27.2
[2020-08-25 19:35] LABS: Add Manual Diff / Slide Review NO; Basophils Absolute Auto 0 /uL (0-100); Basophils Percent Auto 0.6 % (0-2); Eosinophils Absolute Auto 200 /uL (0-450); Eosinophils Percent Auto 2.5 % (2-4); Hematocrit 39.5 % (41-53); Hemoglobin 13.8 g/dL (13.5-17.5); Lymphocytes Absolute Auto 1900 /uL (1100-4500); Lymphocytes Percent Auto 22.1 % (25-40); Mean Corpuscular HGB Conc 34.9 % (30-36); Mean Corpuscular Hemoglobin 32.4 PG (26-34); Mean Corpuscular Volume 92.9 fL (80-100); Monocytes Absolute Auto 600 /uL (0-900); Monocytes Percent Auto 7.4 % (3-14); Neutrophils Absolute Auto 5700 /uL (1500-7000); Neutrophils Percent Auto 67.4 % (50-75); Platelet Count 252 X10^3/uL (150-400); Red Blood Cell Count 4.25 X10^6/uL (4.5-5.9); Red Cell Distribution Width 13.7 % (11.6-14.8); White Blood Cell Count 8.5 X10^3/uL (4.5-11.0)
[2020-08-25 19:46] LABS: Reticulocyte Count, Percent 1.1 % (0.87-2.60)
[2020-08-25 20:01] LABS: Alanine Aminotransferase 22 IU/L (<50); Albumin 3.9 g/dL (3.5-5.0); Albumin Globulin Ratio 1.4 (1.0-2.8); Alkaline Phosphatase 76 U/L (38-126); Aspartate Aminotransferase 27 IU/L (17-59); BUN Creatinine Ratio 21.9 (6-22); Bilirubin Total 0.6 mg/dL (0.2-1.3); Blood Urea Nitrogen 21 mg/dL (9-20); Calcium 9.2 mg/dL (8.4-10.2); Carbon Dioxide 28 mmol/L (22-32); Chloride 106 mmol/L (98-107); Estimated Glomerular Filt Rate > 60.0 mL/min (>60); Globulin 2.8 g/dL (1.7-4.1); Glucose 108 mg/dL (80-110); HEMOLYSIS < 15 (0-50); Potassium 4.9 mmol/L (3.4-5.1); Sodium 138 mmol/L (137-145); Total Protein 6.7 g/dL (6.3-8.2)
[2020-08-25 20:36] LABS: Ferritin 149 ng/mL (18-464)
== END ==
PROVIDERS: PCP Internal Medicine; Visit Provider Internal Medicine
DX: R10.2 Pelvic and perineal pain (principal); K62.5 Hemorrhage of anus and rectum; K92.1 Melena; D64.9 Anemia, unspecified
CPT/HCPCS: 80053; 82728; 85025; 85045

== ENCOUNTER → 2020-08-29 13:53 | Outpatient (CLI) | payer MEDICARE, SELFPAY ==
[2020-01-13 14:43] VITALS: BMI 27.2
--- NOTE | 2020-08-29 | DI.MRI.S_ITS ---
PROCEDURE: MR PELVIS WO CON INDICATIONS: PELVIC PAIN IN MALE TECHNIQUE: Noncontrast coronal T1 and STIR, sagittal T1, axial oblique T1 and STIR, and axial T2 with fat saturation through the bony pelvis. Patient declined intravenous contrast. COMPARISON: [facility], CT, CT ABDOMEN PELVIS W CON, 03/11/2020, 7:38. [facility], MR, PELVIS WITHOUT CONTRAST, 07/01/2017, 7:45. FINDINGS: Image quality: Excellent. Bones: Bone marrow of the pelvic ring, sacrum, and proximal femurs demonstrate normal overall signal. No intraosseous lesions or fractures identified. The visualized lower lumbar spine demonstrates mild disc space narrowing with a small broad-based disc bulge at the presumed L4-5 level. Findings are incompletely evaluated on the current study. Soft tissues: Visualized muscles demonstrate normal bulk and internal signal. No joint effusions. No free pelvic fluid. The urinary bladder is partially distended. Visualized bowel loops are normal in caliber. There is colonic diverticulosis in the sigmoid colon. No discrete perianal fistula or perianal abscess, with evaluation limited by the absence of intravenous contrast. IMPRESSION: 1. No definite acute abnormality identified in the pelvis, with evaluation slightly limited in the absence of intravenous contrast. 2. No definite evidence of perianal fistula or abscess. If clinical concern persists, post-contrast images may be performed for further evaluation. Dictated by: Terence Bunn M.D. on 08/29/2020 at 17:21 Approved by: Terence Bunn M.D. on 08/29/2020 at 17:27
== END ==
PROVIDERS: PCP Internal Medicine; Referring Provider Internal Medicine; Visit Provider Internal Medicine
DX: R10.2 Pelvic and perineal pain (principal); K57.30 Diverticulosis of large intestine without perforation or abscess without bleeding
CPT/HCPCS: 72195

== ENCOUNTER → 2020-09-08 10:03 | Outpatient (CLI) | payer MEDICARE, SELFPAY ==
[2020-01-13 14:43] VITALS: BMI 27.2
--- NOTE | 2020-09-08 11:30 | DI.CT.S_ITS ---
PROCEDURE: CT ABDOMEN PELVIS W CON INDICATIONS: Pelvic and perineal pain TECHNIQUE: After the administration of oral and intravenous contrast, 5 mm thick sections acquired from the diaphragms to the symphysis. 5 mm thick coronal and sagittal reformats were performed. For radiation dose reduction, the following was used: automated exposure control, adjustment of mA and/or kV according to patient size. COMPARISON: [facility], CT, CT ABDOMEN PELVIS W CON, 03/10/2019, 12:48. [facility], CT, CT ANGIO CHEST ABD, 10/28/2016, 2:26. [facility], CT, CT ABDOMEN PELVIS W CON, 01/13/2020, 9:33. [facility], CT, CT ABDOMEN PELVIS W CON, 03/11/2020, 7:38. FINDINGS: Image quality: Excellent. ABDOMEN: Lung bases: Mild platelike atelectasis is present at the right lung base. Lung bases are otherwise clear. No pleural effusion or pneumothorax. Heart size is normal. Solid organs: Liver is normal in size and enhancement. Gallbladder is surgically absent . Biliary system is non-dilated. Pancreas enhances normally. Spleen is normal in size and enhancement. No adrenal nodules. Kidneys are normal in size and enhancement, without hydronephrosis. There are bilateral nonobstructing stones. The largest right stone measures 0.7 cm in diameter and the largest left stone measures 1.0 cm in diameter. Low-density cortical cysts are noted bilaterally. Peritoneum and bowel: Stomach, small bowel, and colon loops are normal in caliber and wall thickness. The appendix is thin walled and gas filled. There are scattered sigmoid diverticula. No evidence for diverticulitis. No free fluid or air. Nodes and vessels: No retroperitoneal or mesenteric adenopathy. Aorta and inferior vena cava are normal in caliber. There are scattered atheromatous calcifications throughout the aorta and iliac arteries bilaterally. Miscellaneous: No ventral hernias. PELVIS: Genitourinary: Bladder wall thickness is normal. A 1.9 cm in diameter calcification is present within the left aspect of the superior prostate. Miscellaneous: No inguinal hernias or adenopathy. Bones: No suspicious bony lesions. Sclerotic lesion within the anterior acetabulum is unchanged from prior studies and may represent a bone island. No vertebral body compression fractures. IMPRESSION: 1. No acute intra-abdominal findings. Diverticulosis. No acute diverticulitis. Normal appendix. 2. Dense calcification within the left aspect of the posterior prostate this may represent the firm area palpated by the clinician on digital exam. 3. Aortic atherosclerosis. 4. Nonobstructive bilateral nephrolithiasis. Dictated by: Jazzy Nolasco M.D. on 09/08/2020 at 13:57 Approved by: Jazzy Nolasco M.D. on 09/08/2020 at 14:03
== END ==
PROVIDERS: PCP Internal Medicine; Referring Provider Internal Medicine; Visit Provider Internal Medicine
DX: R10.2 Pelvic and perineal pain (principal); N20.0 Calculus of kidney; N28.1 Cyst of kidney, acquired; K57.30 Diverticulosis of large intestine without perforation or abscess without bleeding; N42.9 Disorder of prostate, unspecified; I70.0 Atherosclerosis of aorta; Z90.49 Acquired absence of other specified parts of digestive tract
CPT/HCPCS: 74177; Q9967

== ENCOUNTER → 2020-09-12 18:52 | Outpatient (ROUT) | payer MEDICARE, SELFPAY ==
[2020-01-13 14:43] VITALS: BMI 27.2
[2020-09-12 20:43] LABS: Prostate Specific Antigen < 0.064 ng/mL (0.10-4.00)
== END ==
PROVIDERS: PCP Internal Medicine; Visit Provider Internal Medicine
DX: N41.1 Chronic prostatitis (principal)
CPT/HCPCS: 84153; 87086

== ENCOUNTER → 2020-11-28 18:16 | Outpatient (ROUT) | payer MEDICARE, SELFPAY ==
[2020-01-13 14:43] VITALS: BMI 27.2
[2020-11-28 18:53] LABS: Add Manual Diff / Slide Review NO; Basophils Absolute Auto 100 /uL (0-100); Basophils Percent Auto 0.8 % (0-2); Eosinophils Absolute Auto 200 /uL (0-450); Eosinophils Percent Auto 3.1 % (2-4); Hematocrit 40.9 % (41-53); Hemoglobin 14.2 g/dL (13.5-17.5); Lymphocytes Absolute Auto 1400 /uL (1100-4500); Lymphocytes Percent Auto 21.6 % (25-40); Mean Corpuscular HGB Conc 34.8 % (30-36); Mean Corpuscular Volume 92.2 fL (80-100); Monocytes Absolute Auto 500 /uL (0-900); Monocytes Percent Auto 7.4 % (3-14); Neutrophils Absolute Auto 4400 /uL (1500-7000); Neutrophils Percent Auto 67.1 % (50-75); Platelet Count 251 X10^3/uL (150-400); Red Blood Cell Count 4.44 X10^6/uL (4.5-5.9); Red Cell Distribution Width 13.2 % (11.6-14.8); White Blood Cell Count 6.6 X10^3/uL (4.5-11.0)
[2020-11-28 18:57] LABS: Alanine Aminotransferase 23 IU/L (<50); Albumin Globulin Ratio 1.5 (1.0-2.8); Alkaline Phosphatase 84 U/L (38-126); Amylase 70 U/L (30-110); Aspartate Aminotransferase 35 IU/L (17-59); BUN Creatinine Ratio 19.2 (6-22); Bilirubin Total 0.7 mg/dL (0.2-1.3); Blood Urea Nitrogen 19 mg/dL (9-20); Calcium 9.4 mg/dL (8.4-10.2); Carbon Dioxide 31 mmol/L (22-32); Chloride 102 mmol/L (98-107); Estimated Glomerular Filt Rate > 60.0 mL/min (>60); Globulin 2.7 g/dL (1.7-4.1); Glucose 122 mg/dL (80-110); HEMOLYSIS < 15 (0-50); Lipase 144 U/L (23-300); Potassium 4.3 mmol/L (3.4-5.1); Sodium 137 mmol/L (137-145); Total Protein 6.7 g/dL (6.3-8.2)
== END ==
PROVIDERS: PCP Internal Medicine; Visit Provider Physician Assistant
DX: N41.9 Inflammatory disease of prostate, unspecified (principal); R11.2 Nausea with vomiting, unspecified
CPT/HCPCS: 80053; 82150; 83690; 85025

== ENCOUNTER → 2021-03-10 19:28 | Outpatient (ROUT) | payer MEDICARE, SELFPAY ==
[2020-01-13 14:43] VITALS: BMI 27.2
[2021-03-10 19:47] LABS: HEMOLYSIS < 15 (0-50); Iron 24 ug/dL (49-181)
[2021-03-10 19:50] LABS: Alanine Aminotransferase 27 IU/L (<50); Albumin Globulin Ratio 1.4 (1.0-2.8); Alkaline Phosphatase 79 U/L (38-126); Aspartate Aminotransferase 31 IU/L (17-59); BUN Creatinine Ratio 22.1 (6-22); Bilirubin Total 0.9 mg/dL (0.2-1.3); Blood Urea Nitrogen 25 mg/dL (9-20); Calcium 9.2 mg/dL (8.4-10.2); Carbon Dioxide 26 mmol/L (22-32); Chloride 105 mmol/L (98-107); Cholesterol 101 mg/dL (140-199); Estimated Glomerular Filt Rate > 60.0 mL/min (>60); Globulin 2.8 g/dL (1.7-4.1); Glucose 121 mg/dL (80-110); HDL Cholesterol 48 mg/dL (40-60); HEMOLYSIS < 15 (0-50); LDL Cholesterol Calculated 41 mg/dL (<100); Sodium 138 mmol/L (137-145); Total Protein 6.8 g/dL (6.3-8.2); Triglycerides 62 mg/dL (35-150)
[2021-03-10 19:54] LABS: Add Manual Diff / Slide Review NO; Basophils Absolute Auto 100 /uL (0-100); Basophils Percent Auto 0.3 % (0-2); Eosinophils Absolute Auto 0 /uL (0-450); Eosinophils Percent Auto 0.3 % (2-4); Hematocrit 41.5 % (41-53); Hemoglobin 14.5 g/dL (13.5-17.5); Lymphocytes Absolute Auto 1700 /uL (1100-4500); Lymphocytes Percent Auto 10.1 % (25-40); Mean Corpuscular HGB Conc 34.8 % (30-36); Mean Corpuscular Hemoglobin 32.2 PG (26-34); Mean Corpuscular Volume 92.4 fL (80-100); Monocytes Absolute Auto 900 /uL (0-900); Monocytes Percent Auto 5.6 % (3-14); Neutrophils Absolute Auto 14000 /uL (1500-7000); Neutrophils Percent Auto 83.7 % (50-75); Platelet Count 245 X10^3/uL (150-400); Red Blood Cell Count 4.49 X10^6/uL (4.5-5.9); Red Cell Distribution Width 13.3 % (11.6-14.8); White Blood Cell Count 16.7 X10^3/uL (4.5-11.0)
[2021-03-10 20:03] LABS: Percent Iron Saturation 7 % (20-50); Total Iron Binding Capacity 357 ug/dL (261-462); Transferrin 278 mg/dL (206-381)
[2021-03-10 20:19] LABS: TSH w/ Reflex to FT4 0.79 uIU/mL (0.47-4.68)
[2021-03-10 20:24] LABS: Ferritin 148 ng/mL (18-464)
== END ==
PROVIDERS: PCP Internal Medicine; Visit Provider Physician Assistant
DX: G89.4 Chronic pain syndrome (principal); E78.5 Hyperlipidemia, unspecified; I25.10 Atherosclerotic heart disease of native coronary artery without angina pectoris; R53.83 Other fatigue; I10 Essential (primary) hypertension; D64.9 Anemia, unspecified
CPT/HCPCS: 80053; 80061; 82728; 83540; 83550; 84443; 85025

== ENCOUNTER → 2021-03-23 14:51 | Outpatient (ROUT) | payer MEDICARE, SELFPAY ==
[2020-01-13 14:43] VITALS: BMI 27.2
[2021-03-23 15:12] LABS: Hematocrit 39.1 % (41-53); Hemoglobin 13.2 g/dL (13.5-17.5); Mean Corpuscular HGB Conc 33.8 % (30-36); Mean Corpuscular Hemoglobin 31.4 PG (26-34); Mean Corpuscular Volume 92.8 fL (80-100); Platelet Count 283 X10^3/uL (150-400); Red Blood Cell Count 4.21 X10^6/uL (4.5-5.9); Red Cell Distribution Width 13.7 % (11.6-14.8); White Blood Cell Count 9.1 X10^3/uL (4.5-11.0)
[2021-03-23 15:37] LABS: Neutrophils Absolute Manual 6916 /uL (3000-5900); Total Cells Counted 100
[2021-03-23 15:38] LABS: RBC Morphology Normal Morphology
== END ==
PROVIDERS: PCP Internal Medicine; Visit Provider Physician Assistant
DX: D72.829 Elevated white blood cell count, unspecified (principal)
CPT/HCPCS: 85025

== ENCOUNTER → 2021-04-18 18:39 | Outpatient (ROUT) | payer MEDICARE, SELFPAY ==
[2020-01-13 14:43] VITALS: BMI 27.2
[2021-04-18 19:53] LABS: Hematocrit 40.7 % (41-53); Hemoglobin 13.9 g/dL (13.5-17.5); Mean Corpuscular HGB Conc 34.2 % (30-36); Mean Corpuscular Volume 93.4 fL (80-100); Platelet Count 258 X10^3/uL (150-400); Red Blood Cell Count 4.36 X10^6/uL (4.5-5.9); White Blood Cell Count 7.2 X10^3/uL (4.5-11.0)
[2021-04-18 20:06] LABS: Neutrophils Absolute Manual 4752 /uL (3000-5900); Total Cells Counted 100
[2021-04-18 20:07] LABS: RBC Morphology Normal Morphology
== END ==
PROVIDERS: PCP Internal Medicine; Visit Provider Internal Medicine
DX: D64.9 Anemia, unspecified (principal)
CPT/HCPCS: 85025

== ENCOUNTER 2021-05-10 19:26 | Emergency (ER) | payer MEDICARE, SELFPAY ==
[2020-01-13 14:43] VITALS: BMI 27.2
[2021-05-10 19:38] VITALS: BP 111/54; PULSE 50; RESP 16; TEMP 36.6; O2SAT 94; BMI 28.8
--- NOTE | 2021-05-10 21:52 | PC.NURSE ---
called for patient, no answer.
== END 2021-05-10 22:03 | disposition left against medical advice (07) ==
PROVIDERS: PCP Internal Medicine
DX: M54.9 Dorsalgia, unspecified (principal); R23.2 Flushing
CPT/HCPCS: 99281

== ENCOUNTER 2021-07-18 08:28 | Emergency (ER) | payer MEDICARE, SELFPAY ==
[2020-01-13 14:43] VITALS: BMI 27.2
[2021-07-18] VITALS (16 sets, daily range): BP systolic 159–186; BP diastolic 70–86; PULSE 46–71; RESP 11–30; TEMP 36.7; O2SAT 91–95
--- NOTE | 2021-07-18 08:40 | DI.RAD.S_ITS ---
PROCEDURE: XR CHEST 1V INDICATIONS: chest pain TECHNIQUE: One view of the chest was acquired. COMPARISON: , CT, CT CHEST ABD PEL W CON, 12/20/2019, 7:00. , CR, XR CHEST 1V, 12/20/2019, 4:40. , CR, XR CHEST 2V, 04/20/2020, 8:08. , CR, XR CHEST 2V, 05/04/2020, 10:22. FINDINGS: Surgical changes and devices: None. Lungs and pleura: Lungs are clear, yet hyperexpanded. No pleural effusions or pneumothorax. Mediastinum: Mediastinal contours appear normal. Heart size is normal. Bones and chest wall: No suspicious bony lesions. Age-appropriate bony degenerative changes are seen. Overlying soft tissues appear unremarkable. IMPRESSION: Hyperexpanded lungs, without an acute cardiopulmonary process identified. Dictated by: Arnaldo Colbert M.D. on 07/18/2021 at 8:12 Approved by: Arnaldo Colbert M.D. on 07/18/2021 at 8:13
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
[2021-07-18 08:48] LABS: Add Manual Diff / Slide Review NO; Basophils Absolute Auto 100 /uL (0-100); Eosinophils Absolute Auto 100 /uL (0-450); Eosinophils Percent Auto 0.8 % (2-4); Hematocrit 40.2 % (41-53); Hemoglobin 13.7 g/dL (13.5-17.5); Lymphocytes Absolute Auto 1300 /uL (1100-4500); Mean Corpuscular HGB Conc 34.1 % (30-36); Mean Corpuscular Hemoglobin 31.7 PG (26-34); Mean Corpuscular Volume 92.8 fL (80-100); Monocytes Absolute Auto 500 /uL (0-900); Monocytes Percent Auto 7.1 % (3-14); Neutrophils Absolute Auto 4700 /uL (1500-7000); Neutrophils Percent Auto 71.1 % (50-75); Platelet Count 259 X10^3/uL (150-400); Red Blood Cell Count 4.33 X10^6/uL (4.5-5.9); Red Cell Distribution Width 13.5 % (11.6-14.8); White Blood Cell Count 6.6 X10^3/uL (4.5-11.0)
[2021-07-18 09:04] LABS: Alanine Aminotransferase 17 IU/L (<50); Albumin Globulin Ratio 1.4 (1.0-2.8); Alkaline Phosphatase 72 U/L (38-126); Aspartate Aminotransferase 28 IU/L (17-59); BUN Creatinine Ratio 15.6 (6-22); Bilirubin Total 0.5 mg/dL (0.2-1.3); Blood Urea Nitrogen 15 mg/dL (9-20); Calcium 9.9 mg/dL (8.4-10.2); Carbon Dioxide 28 mmol/L (22-32); Chloride 105 mmol/L (98-107); Estimated Glomerular Filt Rate > 60.0 mL/min (>60); Globulin 2.8 g/dL (1.7-4.1); Glucose 115 mg/dL (80-110); HEMOLYSIS < 15 (0-50); Lipase 99 U/L (23-300); Potassium 4.5 mmol/L (3.4-5.1); Sodium 138 mmol/L (137-145); Total Protein 6.8 g/dL (6.3-8.2)
[2021-07-18 09:13] LABS: Troponin I < 0.012 ng/mL (0.01-0.034)
[2021-07-18] MEDS: SODIUM CHLORIDE 0.9% 1,000 ML 150 ML IV (09:22)
[2021-07-18] MEDS: HYDROMORPHONE 1 MG INJ IV (09:22)
[2021-07-18 09:41] LABS: Bacteria Urine None Seen
[2021-07-18 09:48] LABS: Amorphous Sediment Urine 1+; Culture Indicated Urine Cult Not Indicated; RBC Urine 10-30/HPF (0-5/HPF); Squamous Epithelial Cell Urine 1-5 /HPF (0-5/HPF); WBC Urine 0-1/HPF (0-5/HPF)
[2021-07-18 11:05] LABS: Bacteria Urine None Seen
[2021-07-18 11:14] LABS: Culture Indicated Urine Cult Not Indicated; RBC Urine 1-5/HPF (0-5/HPF); Squamous Epithelial Cell Urine 0-1 /HPF (0-5/HPF); WBC Urine 0-1/HPF (0-5/HPF)
== END 2021-07-18 12:15 | disposition home or self-care (01) ==
PROVIDERS: Emergency Provider Emergency Medicine; PCP Internal Medicine
DX: R07.89 Other chest pain (principal); R42 Dizziness and giddiness; R10.11 Right upper quadrant pain
CPT/HCPCS: 36415; 71045; 80053; 81003; 81015; 83690; 83735; 84484; 85025; 87086; 93005; 96361; 96374; 99284; J1170

== ENCOUNTER 2021-10-18 06:22 | Emergency (ER) | payer MEDICARE, SELFPAY ==
[2020-01-13 14:43] VITALS: BMI 27.2
[2021-10-18] VITALS (10 sets, daily range): BP systolic 106–152; BP diastolic 49–70; PULSE 48–69; RESP 12–20; TEMP 36.7; O2SAT 95–99; BMI 25.0
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
[2021-10-18 06:40] LABS: Add Manual Diff / Slide Review NO; Basophils Absolute Auto 100 /uL (0-100); Basophils Percent Auto 0.7 % (0-2); Eosinophils Absolute Auto 200 /uL (0-450); Eosinophils Percent Auto 2.6 % (2-4); Hemoglobin 14.2 g/dL (13.5-17.5); Lymphocytes Absolute Auto 1800 /uL (1100-4500); Lymphocytes Percent Auto 24.3 % (25-40); Mean Corpuscular HGB Conc 34.6 % (30-36); Mean Corpuscular Hemoglobin 31.7 PG (26-34); Mean Corpuscular Volume 91.8 fL (80-100); Monocytes Absolute Auto 700 /uL (0-900); Monocytes Percent Auto 9.3 % (3-14); Neutrophils Absolute Auto 4700 /uL (1500-7000); Neutrophils Percent Auto 63.1 % (50-75); Platelet Count 271 X10^3/uL (150-400); Red Blood Cell Count 4.47 X10^6/uL (4.5-5.9); Red Cell Distribution Width 14.4 % (11.6-14.8); White Blood Cell Count 7.4 X10^3/uL (4.5-11.0)
[2021-10-18 06:49] LABS: INR 0.9 (0.9-1.3); Prothrombin Time 10.2 SECONDS (10.1-12.7)
[2021-10-18 06:52] LABS: PTT Partial Thromboplastin Tim 31 SECONDS (26.4-36.2)
[2021-10-18 07:00] LABS: Alanine Aminotransferase 14 IU/L (<50); Albumin 3.5 g/dL (3.5-5.0); Albumin Globulin Ratio 1.4 (1.0-2.8); Alkaline Phosphatase 43 U/L (38-126); Aspartate Aminotransferase 25 IU/L (17-59); BUN Creatinine Ratio 22.5 (6-22); Blood Urea Nitrogen 23 mg/dL (9-20); Calcium 8.5 mg/dL (8.4-10.2); Carbon Dioxide 30 mmol/L (22-32); Chloride 104 mmol/L (98-107); Creatine Kinase 89 U/L (55-170); Estimated Glomerular Filt Rate > 60.0 mL/min (>60); Globulin 2.5 g/dL (1.7-4.1); Glucose 115 mg/dL (80-110); HEMOLYSIS < 15 (0-50); Lipase 206 U/L (23-300); Potassium 3.8 mmol/L (3.4-5.1); Sodium 138 mmol/L (137-145)
[2021-10-18 07:07] LABS: Troponin I 0.013 ng/mL (0.01-0.034)
[2021-10-18] MEDS: HYDROMORPHONE 1 MG INJ IV (07:30)
--- NOTE | 2021-10-18 07:39 | DI.RAD.S_ITS ---
PROCEDURE: XR CHEST 1V INDICATIONS: dizzy, weak, pain TECHNIQUE: One view of the chest was acquired. COMPARISON: [facility], CT, CT ANGIO CHEST ABD, 10/28/2016, 2:26. [facility], CT, CT CHEST ABD PEL W CON, 12/20/2019, 7:00. [facility], CT, CT ABDOMEN PELVIS W CON, 03/11/2020, 7:38. [facility], CT, CT ABDOMEN PELVIS W CON, 09/08/2020, 11:10. [facility], CR, XR CHEST 1V, 07/18/2021, 8:46. FINDINGS: Surgical changes and devices: None. Lungs and pleura: Mild hyperinflation. Possible 1.4 cm right infrahilar nodule, which was on multiple previous CT and appears unchanged since 10/28/2016. Lungs are clear. No pleural effusions or pneumothorax. Mediastinum: Mediastinal contours appear normal. Heart size is normal. Bones and chest wall: No suspicious bony lesions. Overlying soft tissues appear unremarkable. IMPRESSION: 1. No acute cardiopulmonary disease. 2. Hyperinflation suggesting COPD. 3. Stable 1.4 cm right infrahilar nodule. Dictated by: Yoli Hawthorne M.D. on 10/18/2021 at 8:51 Approved by: Yoli Hawthorne M.D. on 10/18/2021 at 8:56
--- NOTE | 2021-10-18 08:39 | DI.CT.S_ITS ---
PROCEDURE: CT HEAD/BRAIN WO CON INDICATIONS: dizziness, vertigo, several weeks symptoms TECHNIQUE: Noncontrast 4.5 mm thick angled axial sections acquired from the foramen magnum to the vertex, with coronal and sagittal reformats. For radiation dose reduction, the following was used: automated exposure control, adjustment of mA and/or kV according to patient size. COMPARISON: None. FINDINGS: Image quality: Excellent. CSF spaces: Basal cisterns are patent. No extra-axial fluid collections. The ventricles are symmetric in size and shape. There is mild cerebral volume loss, with resultant ventricular and sulcal prominence. Brain: No intracranial hemorrhage, mass, or mass effect. There are subcortical, periventricular and deep white matter hypodensities consistent with mild chronic small vessel ischemic changes. The coombs-white matter junction appears preserved. There is intracranial internal carotid artery atherosclerosis. Skull and face: Calvarium and visualized facial bones appear intact, without suspicious lesions. Sinuses: Visualized sinuses and mastoids are clear. IMPRESSION: 1. No acute intracranial abnormality. 2. Mild chronic white matter small vessel ischemic changes and cerebral volume loss. Dictated by: Terence Bunn M.D. on 10/18/2021 at 7:51 Approved by: Terence Bunn M.D. on 10/18/2021 at 7:53
[2021-10-18] MEDS: SODIUM CHLORIDE 0.9% 1,000 ML 1000 ML IV (09:08)
[2021-10-18] MEDS: KETOROLAC 30 MG/ML VIAL 15 MG IV (09:11)
[2021-10-18 09:34] LABS: Troponin I < 0.012 ng/mL (0.01-0.034)
--- NOTE | 2021-10-18 10:16 | PC.NURSE ---
pt got up out of bed stating he's good, he feels good. pt will fill prescriptions for further treatment.
--- NOTE | 2021-10-18 11:17 | PC.NURSE ---
ongoing chronic back pain
--- NOTE | 2021-10-23 16:52 | CM.SWNOTE ---
CONTINUOUS CRUSHER OPERATOR f/u call CONTINUOUS CRUSHER OPERATOR calls patient's home. 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 Patient's thanks CONTINUOUS CRUSHER OPERATOR for call. RISSA Roldan
== END 2021-10-18 10:16 | disposition home or self-care (01) ==
PROVIDERS: Emergency Medicine; Emergency Provider Emergency Medicine; PCP Internal Medicine
DX: R42 Dizziness and giddiness (principal); G89.29 Other chronic pain; M54.50 Low back pain, unspecified; R53.1 Weakness; R03.1 Nonspecific low blood-pressure reading
CPT/HCPCS: 36415; 70450; 71045; 80053; 82550; 83690; 84484; 85025; 85610; 85730; 93005; 93010; 96374; 96375; 99283; 99284; J1170; J1885

== ENCOUNTER → 2021-11-29 11:15 | Outpatient (CLI) | payer MEDICARE, SELFPAY ==
[2020-01-13 14:43] VITALS: BMI 27.2
--- NOTE | 2021-11-29 12:25 | DI.CT.S_ITS ---
PROCEDURE: CT ABDOMEN PELVIS W CON INDICATIONS: Generalized abdominal pain TECHNIQUE: After the administration of oral and IV contrast, axial sections were acquired from the lung bases to the pubic symphysis. Coronal and sagittal reformats were performed. For radiation dose reduction, the following was used: automated exposure control, adjustment of mA and/or kV according to patient size. COMPARISON: [facility], CT, CT ANGIO CHEST ABD, 10/28/2016, 2:26. [facility], CT, CT ABDOMEN PELVIS W CON, 09/08/2020, 11:10. FINDINGS: Image quality: Excellent. Lung bases: Within the right lower lobe, there is a circumscribed oval nodule measuring up to 1.7 cm which appears stable in size compared to the prior studies dating back to 2016. There are mild centrilobular emphysematous changes as well as mild atelectasis and scarring in the lung bases. Heart: Heart is normal in size. ABDOMEN: Liver: There are 2 small hypodense foci within the liver which are too small to characterize but likely represent small cysts. Gallbladder: Surgically absent. Biliary ducts: No biliary ductal dilatation. Pancreas: Unremarkable. Spleen: Normal in size. Adrenal Glands: No adrenal nodules. Kidneys and Ureters: There is mild fullness of the right renal collecting system without a discrete obstructing stone at this time. 3 nonobstructing stones are demonstrated within the right kidney including a stone in the pelvis measuring up to 1.1 cm. There is no left hydronephrosis. There are clustered stones within the superior pole of the left kidney measuring up to approximately 1.1 cm in aggregate dimension. There are left renal cysts as well as additional small low-density foci in the liver which are too small to characterize but likely represent cysts. Stomach and Bowel: Stomach, small bowel loops, and colon are normal in caliber and wall thickness. The appendix is normal in appearance. There is a moderate amount of colonic stool throughout the colon suggestive of constipation. Colonic diverticulosis is present without acute diverticulitis. Peritoneum: No abnormal intraperitoneal fluid. There is trace perisplenic free fluid in the left upper quadrant. Ventral Wall: No hernia. Abdominal Nodes: No retroperitoneal or mesenteric adenopathy by size criteria. Vessels: Aorta and inferior vena cava are normal in size. PELVIS: Pelvic Organs: Coarse calcifications redemonstrated within the left aspect of the prostate. Bladder: Unremarkable. Pelvic Nodes: No enlarged lymph nodes. Miscellaneous: No inguinal hernias are seen. Bones: Visualized osseous structures demonstrate no suspicious focal lesions. There is a superior endplate compression deformity of the L2 vertebral body which appears unchanged. IMPRESSION: 1. No definite acute intra-abdominal abnormality. Specifically, no evidence of intra-abdominal abscess. 2. Trace perisplenic free fluid in the left upper quadrant of indeterminate clinical significance. No evidence of associated splenic laceration. 3. Moderate colonic stool distention suggestive of constipation. 4. Colonic diverticulosis without acute diverticulitis. 5. Bilateral nephrolithiasis with mild dilatation of the right renal collecting system but no definite obstructing stone on the current study. Dictated by: Terence Bunn M.D. on 11/29/2021 at 14:11 Approved by: Terence Bunn M.D. on 11/29/2021 at 14:21
== END ==
PROVIDERS: PCP Internal Medicine; Referring Provider Internal Medicine; Visit Provider Internal Medicine
DX: R10.84 Generalized abdominal pain (principal); K57.30 Diverticulosis of large intestine without perforation or abscess without bleeding; N20.0 Calculus of kidney
CPT/HCPCS: 74177

== ENCOUNTER 2021-12-18 09:29 | Emergency (ER) | payer MEDICARE, SELFPAY ==
[2020-01-13 14:43] VITALS: BMI 27.2
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
[2021-12-18 09:30] VITALS: BP 143/93; PULSE 107; RESP 28; TEMP 36.7; O2SAT 95; BMI 21.4
[2021-12-18 09:35] VITALS: PULSE 99; RESP 34; O2SAT 96
[2021-12-18 09:45] VITALS: BP 150/91; PULSE 70; RESP 31; O2SAT 96
[2021-12-18 09:52] LABS: Add Manual Diff / Slide Review NO; Basophils Absolute Auto 100 /uL (0-100); Basophils Percent Auto 0.8 % (0-2); Eosinophils Absolute Auto 0 /uL (0-450); Eosinophils Percent Auto 0.4 % (2-4); Hematocrit 41.1 % (41-53); Hemoglobin 14.1 g/dL (13.5-17.5); Lymphocytes Absolute Auto 1500 /uL (1100-4500); Lymphocytes Percent Auto 17.4 % (25-40); Mean Corpuscular HGB Conc 34.3 % (30-36); Mean Corpuscular Hemoglobin 32.2 PG (26-34); Mean Corpuscular Volume 93.9 fL (80-100); Monocytes Absolute Auto 500 /uL (0-900); Monocytes Percent Auto 5.4 % (3-14); Neutrophils Absolute Auto 6600 /uL (1500-7000); Platelet Count 435 X10^3/uL (150-400); Red Blood Cell Count 4.37 X10^6/uL (4.5-5.9); Red Cell Distribution Width 14.5 % (11.6-14.8); White Blood Cell Count 8.7 X10^3/uL (4.5-11.0)
[2021-12-18] MEDS: SODIUM CHLORIDE 0.9% 1,000 ML 1000 ML IV (09:52)
[2021-12-18] MEDS: ONDANSETRON 4 MG/2 ML INJ IV (09:52)
[2021-12-18] MEDS: KETOROLAC 30 MG/ML VIAL 15 MG IV (09:52)
[2021-12-18 10:00] VITALS: PULSE 58; RESP 13; O2SAT 92
[2021-12-18 10:02] LABS: Alanine Aminotransferase 20 IU/L (<50); Albumin 4.1 g/dL (3.5-5.0); Albumin Globulin Ratio 1.4 (1.0-2.8); Alkaline Phosphatase 75 U/L (38-126); Aspartate Aminotransferase 33 IU/L (17-59); BUN Creatinine Ratio 28.8 (6-22); Bilirubin Total 0.9 mg/dL (0.2-1.3); Blood Urea Nitrogen 19 mg/dL (9-20); Calcium 8.7 mg/dL (8.4-10.2); Carbon Dioxide 23 mmol/L (22-32); Chloride 107 mmol/L (98-107); Estimated Glomerular Filt Rate > 60.0 mL/min (>60); Glucose 89 mg/dL (80-110); HEMOLYSIS 16 (0-50); Lipase 113 U/L (23-300); Potassium 4.4 mmol/L (3.4-5.1); Sodium 139 mmol/L (137-145); Total Protein 7.1 g/dL (6.3-8.2)
[2021-12-18 10:03] LABS: Creatine Kinase 39 U/L (55-170); Lactate (Lactic Acid) 1.1 mmol/L (0.7-2.1)
--- NOTE | 2021-12-18 10:13 | DI.CT.S_ITS ---
PROCEDURE: CT ABDOMEN PELVIS W CON INDICATIONS: abd pain, remote hx sophia w/ bile leak, n/v TECHNIQUE: After the administration of oral and IV contrast, axial sections were acquired from the lung bases to the pubic symphysis. Coronal and sagittal reformats were performed. For radiation dose reduction, the following was used: automated exposure control, adjustment of mA and/or kV according to patient size. COMPARISON: [facility], CT, KIDNEY/ URETER/BLADDER, 09/12/2016, 7:22. [facility], CT, CT ABDOMEN PELVIS W CON, 11/29/2021, 12:08. FINDINGS: Image quality: Excellent. Lung bases: Right lower lobe pulmonary nodule measuring 1.5 cm, (3/), partially visualized but similar compared to 2016. Minimal right basilar atelectasis. No pleural effusion. Heart: No significant findings. ABDOMEN: Liver: No focal lesion. Gallbladder: Surgically absent. No fluid collection. Biliary ducts: No dilatation. Pancreas: No peripancreatic fluid collection. Spleen: No splenomegaly. Previously seen perisplenic fluid is nearly resolved. Adrenal Glands: No nodule. Kidneys and Ureters: Mild right pelvocaliectasis is similar to the prior exam. Mild thickening of the proximal right ureter. No hydroureter. Calculus at the right renal pelvis measuring 1.2 x 0.6 cm is unchanged. Right kidney superior pole nonobstructing calculus measuring 0.5 cm. No left kidney hydronephrosis. Left kidney superior pole nonobstructing calculus measuring 1.5 x 0.8 cm. Additional small nonobstructing kidney stones. Small peripelvic cysts bilaterally. Small right cortical cyst. Renal enhancement is symmetric. Stomach and Bowel: Small hiatal hernia. Stomach, small bowel loops, and colon are unremarkable. Diverticulosis. Normal appendix. Peritoneum: No abnormal intraperitoneal fluid. No free air. Ventral Wall: No hernia. Suture material at the abdominal wall. Abdominal Nodes: No retroperitoneal or mesenteric adenopathy by size criteria. Vessels: Aorta and inferior vena cava are normal in size. Circumferential calcified atherosclerotic plaque. Portal vein is patent. PELVIS: Pelvic Organs: Prostate calcifications. Bladder: No bladder stone. Pelvic Nodes: No enlarged lymph nodes. Miscellaneous: No inguinal hernias are seen. Bones: L2 compression fracture, unchanged. No suspicious lesion. IMPRESSION: 1. Similar mild right pelvocaliectasis with suspected mild thickening. Similar nonobstructing calculus within the right renal pelvis. These findings could be due to chronic irritation or infection. Recommend coloration with urinalysis. Several additional nonobstructing kidney stones. No bladder stone. 2. Previously seen perisplenic fluid is nearly resolved. 3. No fluid collection in the gallbladder fossa. Post cholecystectomy. Dictated by: Jeremiah Dubois M.D. on 12/18/2021 at 10:23 Approved by: Jeremiah Dubois M.D. on 12/18/2021 at 10:36
[2021-12-18 10:14] LABS: Troponin I < 0.012 ng/mL (0.01-0.034)
[2021-12-18 10:16] LABS: COVID19 -Nasal RAPID Negative (Negative)
[2021-12-18 10:20] VITALS: PULSE 66; O2SAT 98
[2021-12-18 10:30] VITALS: PULSE 62; RESP 23; O2SAT 92
[2021-12-18] MEDS: LORazepam 2 MG/ML INJ 0.5 MG IV (11:01)
== END 2021-12-18 11:45 | disposition home or self-care (01) ==
PROVIDERS: Emergency Provider Emergency Medicine; PCP Internal Medicine
DX: R10.11 Right upper quadrant pain (principal); R10.31 Right lower quadrant pain; R11.2 Nausea with vomiting, unspecified; R42 Dizziness and giddiness; Z87.891 Personal history of nicotine dependence; Z20.822 Contact with and (suspected) exposure to COVID-19
CPT/HCPCS: 36415; 74177; 80053; 82550; 83605; 83690; 84484; 85025; 87040; 87635; 93005; 93010; 96361; 96374; 96375; 99284; C9803; J1885; J2060; J2405; Q9967

== ENCOUNTER → 2022-11-28 09:39 | Outpatient (CLI) | payer MEDICARE, SELFPAY ==
[2022-11-23 14:44] VITALS: BMI 27.2
== END ==
PROVIDERS: PCP Internal Medicine; Referring Provider Internal Medicine; Visit Provider Internal Medicine
DX: M81.0 Age-related osteoporosis without current pathological fracture (principal)
CPT/HCPCS: 77080

== ENCOUNTER 2023-04-17 06:55 | Emergency (ER) | payer MEDICARE, SELFPAY ==
[2022-11-23 14:44] VITALS: BMI 27.2
[2023-04-17] VITALS (9 sets, daily range): BP systolic 125–163; BP diastolic 61–67; PULSE 59–82; RESP 12–22; TEMP 37.3; O2SAT 93–99; BMI 22.8
--- NOTE | 2023-04-17 07:45 | DI.CT.S_ITS ---
PROCEDURE: CT ABDOMEN PELVIS W CON INDICATIONS: IV contrast only TECHNIQUE: After the administration of intravenous contrast, axial sections acquired from the lung bases to the pubic symphysis. Coronal and sagittal reformats were performed. For radiation dose reduction, the following was used: automated exposure control, adjustment of mA and/or kV according to patient size. COMPARISON: [facility], CT, CT ABDOMEN PELVIS W CON, 12/18/2021, 10:07. FINDINGS: Image quality: Excellent. Lung bases: Unremarkable. Heart: No significant findings. ABDOMEN: Liver: Unremarkable. Gallbladder: Absent. Biliary ducts: Within normal limits, status post cholecystectomy. Pancreas: Unremarkable. Spleen: Unremarkable. Adrenal Glands: Unremarkable. Kidneys and Ureters: 1.5 centimeter stone within the right renal pelvis (1228 Hounsfield unit), with associated mild peripelvic fat stranding (series 2, image 26). A few nonobstructing left-sided stones, largest measuring 1.5 centimeter (1168 Hounsfield unit). Stomach and Bowel: Large colonic and rectal stool load without evidence of stercoral colitis. Normal colonic caliber. Peritoneum: No abnormal intraperitoneal fluid. No free air. Ventral Wall: No hernias. Abdominal Nodes: No retroperitoneal or mesenteric adenopathy by size criteria. Vessels: Aorta and inferior vena cava are normal in size. PELVIS: Pelvic Organs: Unremarkable. Bladder: A couple of punctate hyperattenuating foci layering on the posterior bladder wall, presumably stones (series 2, image 26). Pelvic Nodes: No enlarged lymph nodes. Miscellaneous: No hernias are seen. Bones: New concave compression deformities of the L1 and L3 vertebral bodies, with 2-4 millimeter endplate retropulsion. IMPRESSION: New concave compression deformities of the L1 and L3 vertebral bodies, with 2-4 millimeter endplate retropulsion. 1.5 centimeter stone within the right renal pelvis (1228 Hounsfield unit), with associated mild peripelvic fat stranding (series 2, image 26). This indicates inflammation, but no obstruction. Infected stone not excluded. Correlate with urinalysis and CBC. A couple of punctate hyperattenuating foci layering on the posterior bladder wall, presumably stones (series 2, image 26). Dictated by: Willy Solomon M.D. on 04/17/2023 at 8:47 Approved by: Willy Solomon M.D. on 04/17/2023 at 8:54
[2023-04-17 07:53] LABS: Add Manual Diff / Slide Review NO; Basophils Absolute Auto 0 /uL (0-100); Basophils Percent Auto 0.7 % (0-2); Eosinophils Absolute Auto 0 /uL (0-450); Eosinophils Percent Auto 0.9 % (2-4); Hematocrit 39.5 % (41-53); Hemoglobin 13.7 g/dL (13.5-17.5); Lymphocytes Absolute Auto 1000 /uL (1100-4500); Lymphocytes Percent Auto 19.4 % (25-40); Mean Corpuscular HGB Conc 34.6 % (30-36); Mean Corpuscular Hemoglobin 32.3 PG (26-34); Mean Corpuscular Volume 93.4 fL (80-100); Monocytes Absolute Auto 300 /uL (0-900); Monocytes Percent Auto 6.2 % (3-14); Neutrophils Absolute Auto 3700 /uL (1500-7000); Neutrophils Percent Auto 72.8 % (50-75); Platelet Count 365 X10^3/uL (150-400); Red Blood Cell Count 4.23 X10^6/uL (4.5-5.9); Red Cell Distribution Width 13.9 % (11.6-14.8); White Blood Cell Count 5.1 X10^3/uL (4.5-11.0)
[2023-04-17] MEDS: MORPHINE 2 MG/ML INJ 4 MG (07:53)
[2023-04-17] MEDS: ONDANSETRON 4 MG/2 ML INJ IV (07:54)
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
[2023-04-17 07:57] LABS: Alanine Aminotransferase 14 IU/L (<50); Albumin Globulin Ratio 1.3 (1.0-2.8); Alkaline Phosphatase 110 U/L (38-126); Aspartate Aminotransferase 26 IU/L (17-59); BUN Creatinine Ratio 25.6 (6-22); Bilirubin Total 0.7 mg/dL (0.2-1.3); Blood Urea Nitrogen 21 mg/dL (9-20); Calcium 9.3 mg/dL (8.4-10.2); Carbon Dioxide 26 mmol/L (22-32); Chloride 104 mmol/L (98-107); Estimated Glomerular Filt Rate > 60 mL/min (>60); Glucose 102 mg/dL (80-110); HEMOLYSIS 16 (0-50); Lipase 136 U/L (23-300); Potassium 3.9 mmol/L (3.4-5.1); Sodium 139 mmol/L (137-145)
[2023-04-17] MEDS: MORPHINE 4 MG/ML INJ IV (09:20)
[2023-04-17 09:35] LABS: Appearance Urine UA CLEAR; Bilirubin Urine UA 1+ (NEGATIVE); Color Urine UA YELLOW; Glucose Urine UA NEGATIVE (Negative); Ketones Urine UA 1+ (NEGATIVE); Leukocyte Esterase Urine UA NEGATIVE (NEGATIVE); Nitrite Urine UA NEGATIVE (Negative); Occult Blood Urine UA 3+ (Negative); Protein Urine UA TRACE (Negative); Specific Gravity Urine UA 1.015 (1.000-1.035); pH Urine UA 5.5 (4.5-8.0)
--- NOTE | 2023-04-17 09:49 | PC.NURSE ---
ambulated independently to restroom
[2023-04-17 10:11] LABS: Bacteria Urine Few (2-10); Ictotest Urine Negative (Negative); RBC Urine 30-100/HPF (0-5/HPF); WBC Urine 0-1/HPF (0-5/HPF)
[2023-04-17 10:12] LABS: Culture Indicated Urine Cult Not Indicated; Mucus Urine 1+ (Negative)
== END 2023-04-17 11:19 | disposition home or self-care (01) ==
PROVIDERS: Emergency Provider Emergency Medicine; PCP Internal Medicine
DX: M48.56XA Collapsed vertebra, not elsewhere classified, lumbar region, initial encounter for fracture (principal)
CPT/HCPCS: 36415; 51798; 74177; 80053; 81001; 83690; 85025; 96374; 96375; 99284; J2270; J2405; Q9967

== ENCOUNTER 2023-04-19 10:11 | Emergency (ER) | payer MEDICARE, SELFPAY ==
[2022-11-23 14:44] VITALS: BMI 27.2
[2023-04-19] VITALS (9 sets, daily range): BP systolic 139–163; BP diastolic 64–75; PULSE 59–81; RESP 18–22; TEMP 36.5; O2SAT 95–97; BMI 21.6
[2023-04-19 10:38] LABS: Add Manual Diff / Slide Review NO; Basophils Absolute Auto 100 /uL (0-100); Basophils Percent Auto 1.1 % (0-2); Eosinophils Absolute Auto 100 /uL (0-450); Hematocrit 39.7 % (41-53); Hemoglobin 13.7 g/dL (13.5-17.5); Lymphocytes Absolute Auto 1200 /uL (1100-4500); Lymphocytes Percent Auto 19.9 % (25-40); Mean Corpuscular HGB Conc 34.5 % (30-36); Mean Corpuscular Hemoglobin 32.1 PG (26-34); Mean Corpuscular Volume 93.1 fL (80-100); Monocytes Absolute Auto 400 /uL (0-900); Monocytes Percent Auto 6.1 % (3-14); Neutrophils Absolute Auto 4400 /uL (1500-7000); Neutrophils Percent Auto 71.9 % (50-75); Platelet Count 369 X10^3/uL (150-400); Red Blood Cell Count 4.26 X10^6/uL (4.5-5.9); Red Cell Distribution Width 14.1 % (11.6-14.8); White Blood Cell Count 6.1 X10^3/uL (4.5-11.0)
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
[2023-04-19 10:45] LABS: INR 1.1 (0.9-1.3); Prothrombin Time 12.1 SECONDS (10.1-12.7)
[2023-04-19 10:48] LABS: PTT Partial Thromboplastin Tim 33 SECONDS (26-36)
[2023-04-19 10:52] LABS: Alanine Aminotransferase 16 IU/L (<50); Albumin Globulin Ratio 1.4 (1.0-2.8); Alkaline Phosphatase 121 U/L (38-126); Aspartate Aminotransferase 26 IU/L (17-59); BUN Creatinine Ratio 29.3 (6-22); Bilirubin Total 0.4 mg/dL (0.2-1.3); Blood Urea Nitrogen 24 mg/dL (9-20); Calcium 9.2 mg/dL (8.4-10.2); Carbon Dioxide 29 mmol/L (22-32); Chloride 102 mmol/L (98-107); Creatine Kinase 50 U/L (55-170); Estimated Glomerular Filt Rate > 60 mL/min (>60); Globulin 2.9 g/dL (1.7-4.1); Glucose 98 mg/dL (80-110); HEMOLYSIS < 15 (0-50); Potassium 4.3 mmol/L (3.4-5.1); Sodium 138 mmol/L (137-145); Total Protein 6.9 g/dL (6.3-8.2)
[2023-04-19 10:54] LABS: Bacteria Urine None Seen; RBC Urine 30-100/HPF (0-5/HPF); Squamous Epithelial Cell Urine 0-1 /HPF (0-5/HPF); WBC Urine 1-5/HPF (0-5/HPF)
[2023-04-19 10:55] LABS: Amorphous Sediment Urine 2+; Calcium Oxalate Crystals Urine Occasional; Culture Indicated Urine Cult Not Indicated; Mucus Urine 1+ (Negative)
[2023-04-19 11:03] LABS: Troponin I < 0.012 ng/mL (0.01-0.034)
[2023-04-19] MEDS: PANTOPRAZOLE 40 MG VIAL IV (11:06)
--- NOTE | 2023-04-19 12:17 | DI.CT.S_ITS ---
PROCEDURE: CT ANGIO CHEST ABDOMEN PELVIS INDICATIONS: abd pain, back pain TECHNIQUE: Precontrast 5 mm thick sections acquired from the lung apices to the iliac crests. After the administration of intravenous contrast, 2.5 mm thick sections again acquired from the lung apices to the iliac crests. Maximum intensity projection (MIP) oblique sagittal and coronal reformats were then acquired. For radiation dose reduction, the following was used: automated exposure control. COMPARISON: [facility], CT, CT ABDOMEN PELVIS W CON, 04/17/2023, 8:11. [facility], CT, CT CHEST ABD PEL W CON, 12/20/2019, 7:00. FINDINGS: Image quality: Excellent. VASCULATURE: Heart is normal in size. Mild to moderate coronary artery calcifications. Main pulmonary artery is normal in size without a central do filling defects seen. Mild atherosclerotic calcifications in the thoracic aorta. No aneurysmal dilatation, dissection, or penetrating ulcer. The proximal arch vessels are grossly patent. Abdominal aorta demonstrates moderate atherosclerotic calcifications. No abdominal aortic aneurysm. The origins of the celiac trunk, superior mesenteric artery, and inferior mesenteric artery are patent. The renal artery origins are patent. Atherosclerotic calcifications at the bilateral common, internal, and external iliac arteries without high-grade stenosis identified. Mild atherosclerotic disease within the visualized portions of the bilateral common, superficial, and profunda femoral arteries. CHEST: Lungs and pleura: No acute airspace opacities. Mild centrilobular emphysema. An oval 1.8 x 1.5 cm nodule is seen in the central right lower lobe (191/15), which measures fluid attenuation and is relatively stable when compared to prior exams. No suspicious new pulmonary nodule. Bandlike scarring or atelectasis of the lateral right lung base. No pleural effusions or pneumothorax. Central and peripheral airways are patent and normal in caliber. Mediastinum: Small amount of pericardial effusion anteriorly. No mediastinal or hilar adenopathy by size criteria. Central pulmonary arteries are normal in size. Esophagus is normal in caliber. No hiatal hernias. Bones and chest wall: No axillary adenopathy by size criteria. Thyroid is unremarkable. No suspicious bony lesions. No vertebral body compression fractures. ABDOMEN: Solid organs: Liver is normal in size and enhancement. Status post cholecystectomy. Mildly dilated central intrahepatic biliary ducts and extrahepatic bile ducts are most likely related to the prior cholecystectomy. Pancreas enhances normally. Spleen is normal in size and enhancement. No adrenal nodules. Bilateral renal calculi are seen, measuring up to 13 mm at the superior pole of left kidney (1050 Hounsfield units) and 15 mm at the right renal pelvis (1100 Hounsfield units). Mild fat stranding again seen adjacent to the right renal pelvis. No ureteral calculus or hydronephrosis is seen. Bilateral renal cysts are present. Peritoneum and bowel: No free fluid or air. Multiple diverticula are seen in the colon. There is possible trace fat stranding adjacent to the distal sigmoid colon in the pelvis. No signs of bowel obstruction. Normal appendix. Nodes and vessels: No retroperitoneal or mesenteric adenopathy by size criteria. Inferior vena cava is normal in morphology. Miscellaneous: No ventral hernias. Surgical material is seen along the anterior abdominal wall PELVIS: Genitourinary: Bladder wall thickness is normal. Nonspecific punctate foci again seen within the posterior bladder. Coarse calcifications are seen in the prostate. Miscellaneous: No inguinal hernias or adenopathy. No ventral hernias. Bones: No suspicious bony lesions. Nncr-wr-[id number] compression fractures are seen at L1 through L3, unchanged when compared to the recent CT from 04/17/2023.. IMPRESSION: 1. No acute aortic dissection, aneurysm, or penetrating ulcer. Moderate atherosclerotic disease. 2. Possible subtle fat stranding adjacent to a sigmoid diverticulum within the pelvis on postcontrast sequence, which could possibly indicate mild or early diverticulitis. 3. Bilateral nonobstructing renal calculi. Mild right peripelvic fat stranding again seen. No hydronephrosis. 4. Punctate calcific foci again seen in the posterior bladder that may represent tiny bladder stones or calcifications within the bladder wall. 5. Moderate compression deformities again seen at L1, L2, and L3, which are unchanged when compared to the recent CT from 04/17/2023. Approved by: Hector Perez M.D. on 04/19/2023 at 14:00
[2023-04-19] MEDS: MORPHINE 4 MG/ML INJ IV (12:54)
== END 2023-04-19 14:21 | disposition home or self-care (01) ==
PROVIDERS: Emergency Provider Emergency Medicine; PCP Internal Medicine
DX: K57.92 Diverticulitis of intestine, part unspecified, without perforation or abscess without bleeding (principal); R07.9 Chest pain, unspecified; Z79.899 Other long term (current) drug therapy
CPT/HCPCS: 36415; 71275; 74174; 80053; 81003; 81015; 82550; 83605; 84484; 85025; 85610; 85730; 86850; 86900; 86901; 87086; 93005; 96374; 96375; 99284; C9113; J2270; Q9967

== ENCOUNTER → 2023-05-31 10:28 | Outpatient (CLI) | payer MEDICARE, SELFPAY ==
[2022-11-23 14:44] VITALS: BMI 27.2
--- NOTE | 2023-05-31 10:30 | DI.MRI.S_ITS ---
PROCEDURE: MR LUMBAR SPINE WO CON INDICATIONS: SPINAL STENOSIS,LUMBAR REGION TECHNIQUE: Noncontrast sagittal T1 spin echo and T2 fast echo, sagittal STIR, and T2 fast spin echo through the lumbar spine. In cases with scoliosis, additional coronal T2 fast spin echo may be performed. COMPARISON: [facility], MR, MR LUMBAR SPINE WO CON, 07/08/2020, 12:00. FINDINGS: Image quality: Excellent. Alignment and Curvature: There is normal bony alignment. Bone Marrow: Acute or subacute mild compression of T11, acute or subacute microtrabecular fracture of T12, moderate subacute compression of L1, chronic moderate L2 compression, subacute moderate L3 compression, subacute [id number]-ihgyqmhj L4 compression, subacute or acute sijd-qn-aqlgkjlf L5 compression. Spinal Cord: Conus medullaris terminates at the L1 level. Visualized cord demonstrates normal signal and size. Paraspinous Soft Tissues: No paravertebral masses. T12-L1: No canal stenosis or foraminal stenosis. L1-L2: No significant canal stenosis or foraminal stenosis. L2-L3: Minimal posterior bony retropulsion of the superior endplate of L3. Mild canal stenosis. No significant foraminal stenosis. L3-L4: Mild canal stenosis. No significant foraminal stenosis. L4-L5: No significant canal stenosis. [id number] bilateral foraminal stenosis. L5-S1: No canal stenosis or foraminal stenosis. IMPRESSION: 1. Findings are consistent with severe benign osteoporosis versus a pathologic condition such as multiple myeloma. There are acute or subacute compression fractures of T11, T12, L1, L3, L4, and L5. There is a chronic compression of L2. Comment: Consider workup for possible multiple myeloma. Dictated by: Ministerio Leyva M.D. on 05/31/2023 at 12:16 Approved by: Ministerio Leyva M.D. on 05/31/2023 at 12:45
== END ==
PROVIDERS: PCP Internal Medicine; Referring Provider Orthopaedic Surgery Orthopaedic Surgery of the Spine; Visit Provider Orthopaedic Surgery Orthopaedic Surgery of the Spine
DX: M48.062 Spinal stenosis, lumbar region with neurogenic claudication (principal); M48.56XA Collapsed vertebra, not elsewhere classified, lumbar region, initial encounter for fracture; M48.54XA Collapsed vertebra, not elsewhere classified, thoracic region, initial encounter for fracture
CPT/HCPCS: 72148

== ENCOUNTER → 2024-02-14 11:53 | Outpatient (CLI) | payer MEDICARE, SELFPAY ==
[2022-11-23 14:44] VITALS: BMI 27.2
--- NOTE | 2024-02-14 11:55 | DI.RAD.S_ITS ---
Bone Density Report Name: MICHAEL JORDAN Age: 78 Sex: Male Ethnicity: White Date of : 1945 Indication: senile osteoporosis; Referring Provider: FELIX SCHWARZ Study: Bone densitometry was performed. Exam Date: February 14, 2024 Accession number: [id number] Bone Density: Region BMD T-score Z-score Classification AP Spine(L1, L2, L4) 0.736 -2.7 -2.0 Osteoporosis Femoral Neck (Left) 0.494 -3.2 -1.7 Osteoporosis Total Hip (Left) 0.588 -2.9 -1.9 Osteoporosis Femoral Neck (Right) 0.462 -3.5 -1.9 Osteoporosis Total Hip (Right) 0.582 -3.0 -1.9 Osteoporosis Total Hip Mean 0.585 -3.0 -1.9 Osteoporosis World Health Organization criteria for BMD impression classify patients as: Normal (T-score at or above -1.0), Osteopenia (T-score between -1.0 and -2.5), or Osteoporosis (T-score at or below -2.5). 10-year Fracture Risk: FRAX not reported because: Some T-score for Spine Total or Hip Total or Femoral Neck at or below -2.5 Previous Exams: -- Region Exam Age BMD T-score BMD Change BMD Change Date g/cm2 vs Baseline vs Previous -- AP Spine (L1-L2,L4) 02/14/2024 78 0.736 -2.7 -0.002 (-0.3%)# 0.054 (7.9%)# 11/28/2022 77 0.682 -3.2 -0.056 (-7.5%)# -0.056 (-7.5%)07/22/2020 75 0.738 -2.7 Total Hip(Left) 02/14/2024 78 0.588 -2.9 0.020 (3.5%)# -0.073 (-11.0%)# 11/28/2022 77 0.661 -2.3 0.092 (16.2%)# 0.092 (16.2%)# 07/22/2020 75 0.568 -3.1 Total Hip(Right) 02/14/2024 78 0.582 -3.0 0.021 (3.8%)# -0.033 (-5.3%)# 11/28/2022 77 0.614 -2.7 0.054 (9.7%)# 0.054 (9.7%)07/22/2020 75 0.560 -3.1 -- *Denotes significance at 95% confidence level, LSC for AP Spine = 0.022 g/cm2, LSC for Total Hip = 0.027 g/cm2 # Denotes dissimilar scan types or analysis methods Impression: The patient has osteoporosis, based on the Right Femoral Neck T-score. No significant bone loss was observed. Discussion: INCREASED RISK OF FRACTURE. BONE DENSITY IS UNDESIRABLY LOW AT ONE OR MORE SKELETAL SITES, CONSISTENT WITH OSTEOPOROSIS. This patient's lowest T-score meets the World Health Organization's (WHO) criteria for osteoporosis at one or more sites (T-score -2.5 or below). In untreated patients, the risk of osteoporotic fracture increases approximately two-fold for each 1.0 SD decrease in T-score. Low bone density is not the only risk factor for fracture; also consider factors such as patient's age, frailty or poor health, risk of falling, risk of injury, previous osteoporotic fracture, family history of osteoporosis, cigarette smoking, low body weight, etc. Not everyone with low bone mineral density has osteoporosis; osteomalacia and other metabolic bone disorders should also be considered. Patients who have osteoporosis should be evaluated for specific diseases and conditions (secondary causes) that may cause or contribute to bone loss. The National Osteoporosis Foundation (NOF) recommends pharmacologic intervention for men with BMD at this level (a T-score of -2.5 or below). The patient should follow a healthful lifestyle (good nutrition with adequate calcium and vitamin D, and appropriate weight-bearing exercise). Follow-Up: Consider repeating this study in 2 years to reassess this patient's status, or sooner if there is some new clinical indication. Reported by: KATHIE MELARA M.D. on 02/14/2024 12:28:00 PM.
== END ==
LOC: RAD 11:54
PROVIDERS: PCP Internal Medicine; Referring Provider Internal Medicine; Visit Provider Internal Medicine
DX: M81.0 Age-related osteoporosis without current pathological fracture (principal)
CPT/HCPCS: 77080

== ENCOUNTER 2024-06-13 06:32 | Emergency (ER) | payer MEDICARE, SELFPAY ==
[2022-11-23 14:44] VITALS: BMI 27.2
[2024-06-13] VITALS (14 sets, daily range): BP systolic 161–233; BP diastolic 70–129; PULSE 59–80; RESP 17–18; TEMP 37.1; O2SAT 91–96; BMI 24.3
--- NOTE | 2024-06-13 06:38 | DI.CT.S_ITS ---
PROCEDURE: CT ABDOMEN PELVIS W CON INDICATIONS: N/V/LOWER ABD PAIN X 5 DAYS TECHNIQUE: After the administration of intravenous contrast, axial sections acquired from the lung bases to the pubic symphysis. Coronal and sagittal reformats were performed. For radiation dose reduction, the following was used: automated exposure control, adjustment of mA and/or kV according to patient size. COMPARISON: [facility], CT, CT ABDOMEN PELVIS W CON, 04/17/2023, 8:11. FINDINGS: Image quality: Diagnostic. Lower Chest: No significant findings. ABDOMEN: Liver: No solid mass. Gallbladder: Surgically absent. Biliary ducts: No biliary dilation. Pancreas: No ductal dilation. Spleen: Size is within normal limits. Adrenal Glands: No adrenal nodules. Kidneys and Ureters: Proximal obstructing right ureteral stone measuring 1.3 x 1.1 centimeters with moderate upstream hydroureteronephrosis. Delayed right nephrogram. Nonobstructing left renal calcifications measuring up to 1.3 centimeters. Bilateral renal cysts and subcentimeter hypodensities which are too small to accurately characterize. Stomach and Bowel: Normal colonic caliber, without significant wall thickening. Diverticulosis without evidence of acute diverticulitis. Rectal stool ball measuring 8.6 x 7.7 centimeters. Peritoneum: No abnormal intraperitoneal fluid. No free air. Ventral Wall: No significant ventral hernia. Abdominal Nodes: No retroperitoneal or mesenteric adenopathy by size criteria. Atherosclerotic vascular calcifications. Vessels: Aorta and inferior vena cava are normal in size. Atherosclerotic vascular calcifications. PELVIS: Pelvic Organs: Coarse calcifications in the prostate. Bladder: Bladder wall thickening, may be secondary to underdistention. Pelvic Nodes: No enlarged lymph nodes. Miscellaneous: No inguinal hernias are seen. Bones: No aggressive osseous abnormality. Degenerative changes of the spine. Multilevel compression deformities which are mild and new at T11, T12, L4 and L5. IMPRESSION: 1. Obstructing stone within the proximal right ureter measuring 1.3 centimeters resulting in moderate upstream hydroureteronephrosis and delayed right nephrogram. 2. Additional nonobstructing stones in the left kidney measuring up to 1.3 centimeters. 3. Stool ball within the rectum measuring up to 8.6 centimeters, correlate for impaction. 4. Significant diverticulosis without evidence of diverticulitis. 5. Possible bladder wall thickening versus underdistention. Correlate with urinalysis. 6. Multilevel vertebral body compression deformities including new mild compression deformities as above with compared to 04/17/2023. Dictated by: Tony Bowles M.D. on 06/13/2024 at 8:38 Approved by: Tony Bowles M.D. on 06/13/2024 at 8:52
--- NOTE | 2024-06-13 06:39 | EKG_ITS ---
[address] [address] Test Date: 2024-06-13 Pat Name: Hector Tariq Department: [facility] Room: Gender: Male [employer]: : 1945 Requested By: Order Number: [id number] Reading MD: Richard Kevin Measurements Intervals [place] Rate: 64 P: 71 MT: 188 QRS: -35 QRSD: 92 T: 21 QT: 450 QTc: 464 Interpretive Statements Normal sinus rhythm Left axis deviation Low voltage QRS Incomplete right bundle branch block Inferior infarct , age undetermined Cannot rule out Anterior infarct , age undetermined Electronically Signed On 06-13-2024 18:33:54 PDT by Richard Kevin
--- NOTE | 2024-06-13 06:39 | DI.RAD.S_ITS ---
PROCEDURE: XR CHEST 1V INDICATIONS: VOMITING X 5 DAYS TECHNIQUE: One view of the chest was acquired. COMPARISON: [facility], CR, XR CHEST 1V, 10/18/2021, 7:42. [facility], CR, XR CHEST 1V, 07/18/2021, 8:46. FINDINGS: Surgical changes and devices: None. Lungs and pleura: Mild bibasilar atelectasis. Right lower lobe nodule seen on prior is not as well appreciated. No pleural effusions or pneumothorax. Mediastinum: Mediastinal contours appear normal. Heart size is normal. Bones and chest wall: No suspicious bony lesions. Overlying soft tissues appear unremarkable. IMPRESSION: Mild bibasilar atelectasis. No focal pulmonary consolidations. Dictated by: Tony Bowles M.D. on 06/13/2024 at 7:43 Approved by: Tony Bowles M.D. on 06/13/2024 at 7:44
--- NOTE | 2024-06-13 06:46 | ED_ITS ---
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 if you have fevers, worsening abdominal back or flank pain, persistent vomiting, lightheadedness or passing out, mental status changes or confusion, difficulty with urination or if you are feeling worse in general. Prescriptions: New ondansetron 4 mg tablet,disintegrating 4 mg PO Q6H PRN (Reason: nausea and vomiting) Qty: 14 0RF ciprofloxacin HCl 500 mg tablet 500 mg PO BID Qty: 20 0RF oxycodone 5 mg tablet 5 mg PO Q6H PRN (Reason: pain) Qty: 10 0RF No Action atorvastatin 80 MG tablet 80 mg PO BEDTIME Qty: 0 budesonide-formoterol [Symbicort] 160 MCG/4.5 MCG HFA aerosol inhaler 2 puff INH BID PRN (Reason: shortness of breath) Qty: 0 Patient Comments: patient states not using. 01/08/2020 ondansetron HCl [Zofran] 4 mg tablet 4 mg PO Q6H Qty: 14 0RF Rx Instructions: Please take as directed lisinopril 10 mg tablet 5 mg PO DAILY Patient Comments: TAKE 1 TABLET BY MOUTH DAILY. metoprolol succinate 50 mg tablet extended release 24 hr 75 mg PO DAILY Patient Comments: TAKE 1.5 TABLETS BY MOUTH DAILY. torsemide 10 mg tablet 10 mg PO DAILY spironolactone 25 mg tablet 25 mg PO DAILY Patient Comments: TAKE 1 TABLET BY MOUTH DAILY. Narcan 4 mg/actuation spray,non-aerosol 4 mg INTRANASAL PRN PRN (Reason: Opiate Reversal) ondansetron 4 mg tablet,disintegrating 4 mg PO Q6H PRN (Reason: nausea and vomiting) Qty: 10 0RF meclizine 25 mg tablet 25 mg PO TID PRN (Reason: dizziness) Qty: 10 0RF amoxicillin-pot clavulanate 875-125 mg tablet 1 tab PO Q12H Qty: 20 0RF ondansetron 4 mg tablet,disintegrating 4 mg PO TID-QID PRN (Reason: nausea and vomiting) Qty: 10 0RF rabeprazole 20 mg tablet,delayed release (DR/EC) 20 mg PO DAILY gabapentin 600 mg tablet 300 mg PO BID tamsulosin 0.4 mg capsule 0.4 mg PO DAILY duloxetine 60 mg capsule,delayed release(DR/EC) 60 mg PO DAILY lidocaine 5 % adhesive patch,medicated 2 patch topical DAILY Qty: 15 0RF Rx Instructions: leave on most painful area for up to 12 hrs meloxicam [Mobic] 7.5 mg tablet 7.5 mg PO BID PRN (Reason: pain) Qty: 20 0RF meclizine 25 mg tablet 25 mg PO TID PRN (Reason: dizziness) Qty: 10 0RF lisinopril 10 mg tablet 10 mg PO DAILY Referrals: Naun Bonilla MD [Physician] - Nilda Burnett MD [Primary Care Provider] - Stand Alone Forms: Patient Portal/API
[2024-06-13] MEDS: SODIUM CHLORIDE 0.9% 1,000 ML 1000 ML IV (06:48)
[2024-06-13] MEDS: ONDANSETRON 4 MG/2 ML INJ IV (06:48)
[2024-06-13 06:53] LABS: Add Manual Diff / Slide Review NO; Basophils Absolute Auto 100 /uL (0-100); Basophils Percent Auto 1.2 % (0-2); Eosinophils Absolute Auto 0 /uL (0-450); Eosinophils Percent Auto 0.4 % (2-4); Hematocrit 41.1 % (41-53); Hemoglobin 14.3 g/dL (13.5-17.5); Lymphocytes Absolute Auto 800 /uL (1100-4500); Lymphocytes Percent Auto 10.1 % (25-40); Mean Corpuscular HGB Conc 34.8 % (30-36); Mean Corpuscular Hemoglobin 30.6 PG (26-34); Mean Corpuscular Volume 87.8 fL (80-100); Monocytes Absolute Auto 500 /uL (0-900); Monocytes Percent Auto 6.5 % (3-14); Neutrophils Absolute Auto 6100 /uL (1500-7000); Neutrophils Percent Auto 81.8 % (50-75); Platelet Count 296 X10^3/uL (150-400); Red Blood Cell Count 4.67 X10^6/uL (4.5-5.9); Red Cell Distribution Width 13.3 % (11.6-14.8); White Blood Cell Count 7.5 X10^3/uL (4.5-11.0)
[2024-06-13 07:12] LABS: INR 1.1 (0.9-1.3); Prothrombin Time 12.5 SECONDS (9.4-12.5)
[2024-06-13 07:15] LABS: Lactate (Lactic Acid) 0.9 mmol/L (0.7-2.1)
[2024-06-13 07:17] LABS: Alanine Aminotransferase 13 IU/L (<50); Albumin 4.1 g/dL (3.5-5.0); Albumin Globulin Ratio 1.3 (1.0-2.8); Alkaline Phosphatase 90 U/L (38-126); Aspartate Aminotransferase 36 IU/L (17-59); BUN Creatinine Ratio 24.5 (6-22); Bilirubin Total 0.7 mg/dL (0.2-1.3); Blood Urea Nitrogen 24 mg/dL (9-20); Calcium 8.7 mg/dL (8.4-10.2); Carbon Dioxide 22 mmol/L (22-32); Chloride 109 mmol/L (98-107); Creatine Kinase 184 U/L (55-170); Estimated Glomerular Filt Rate > 60 mL/min (>60); Globulin 3.1 g/dL (1.7-4.1); Glucose 92 mg/dL (80-110); HEMOLYSIS < 15 (0-50); Lipase 61 U/L (23-300); Magnesium 2.1 mg/dL (1.6-2.3); Potassium 3.9 mmol/L (3.4-5.1); Sodium 141 mmol/L (137-145); Total Protein 7.2 g/dL (6.3-8.2)
[2024-06-13 07:28] LABS: Troponin I 0.013 ng/mL (0.01-0.034)
[2024-06-13 07:33] LABS: Procalcitonin 0.052 ng/mL (<0.5)
[2024-06-13 07:48] LABS: Appearance Urine UA CLEAR; Bilirubin Urine UA 1+ (NEGATIVE); Color Urine UA YELLOW; Glucose Urine UA NEGATIVE (Negative); Ketones Urine UA 2+ (NEGATIVE); Leukocyte Esterase Urine UA TRACE (NEGATIVE); Nitrite Urine UA NEGATIVE (Negative); Occult Blood Urine UA 3+ (Negative); Protein Urine UA 2+ (Negative); Specific Gravity Urine UA 1.025 (1.000-1.035); pH Urine UA 5.5 (4.5-8.0)
[2024-06-13 08:06] LABS: Bacteria Urine Occasional (0-1); Ictotest Urine Negative (Negative); RBC Urine 30-100/HPF (0-5/HPF); Squamous Epithelial Cell Urine 1-5 /HPF (0-5/HPF); Urine Volume 10mL (spun); WBC Urine 5-10/HPF (0-5/HPF)
[2024-06-13 08:07] LABS: Culture Indicated Urine Cult Not Indicated; Mucus Urine 1+ (Negative)
[2024-06-13 09:15] LABS: Influenza A - CEPHEID Flu A NEGATIVE (NEGATIVE); Influenza B - CEPHEID Flu B NEGATIVE (NEGATIVE); Respiratory Syncytial Virus Negative (Negative)
[2024-06-13] MEDS: CIPROFLOXACIN 400 MG/200 ML PIGGYBACK 200 MG IV (09:15)
[2024-06-13 09:26] LABS: COVID-19 CEPHEID 4-PLEX PCR Negative (Negative)
== END 2024-06-13 10:25 | disposition home or self-care (01) ==
PROVIDERS: Emergency Medicine; Emergency Provider Emergency Medicine; PCP Internal Medicine
DX: N20.0 Calculus of kidney (principal); R10.30 Lower abdominal pain, unspecified; Z79.899 Other long term (current) drug therapy; Z11.52 Encounter for screening for COVID-19
CPT/HCPCS: 0241U; 36415; 71045; 74177; 80053; 81001; 82550; 83605; 83690; 83735; 84145; 84484; 85025; 85610; 93005; 96361; 96365; 96375; 99284; J0744; J2405; Q9967

== ENCOUNTER 2024-12-13 06:35 | Emergency (ER) | payer MEDICARE, SELFPAY ==
[2022-11-23 14:44] VITALS: BMI 27.2
[2024-12-13] VITALS (10 sets, daily range): BP systolic 137–175; BP diastolic 63–77; PULSE 67–109; RESP 14–16; TEMP 36.8; O2SAT 91–99
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
[2024-12-13 07:05] LABS: Add Manual Diff / Slide Review NO; Basophils Absolute Auto 0 /uL (0-100); Basophils Percent Auto 0.4 % (0-2); Eosinophils Absolute Auto 0 /uL (0-450); Eosinophils Percent Auto 0.3 % (2-4); Hematocrit 43.1 % (41-53); Hemoglobin 14.6 g/dL (13.5-17.5); Lymphocytes Absolute Auto 800 /uL (1100-4500); Lymphocytes Percent Auto 7.8 % (25-40); Mean Corpuscular HGB Conc 33.9 % (30-36); Mean Corpuscular Hemoglobin 31.5 PG (26-34); Monocytes Absolute Auto 500 /uL (0-900); Monocytes Percent Auto 5.6 % (3-14); Neutrophils Absolute Auto 8400 /uL (1500-7000); Neutrophils Percent Auto 85.9 % (50-75); Platelet Count 317 X10^3/uL (150-400); Red Blood Cell Count 4.63 X10^6/uL (4.5-5.9); Red Cell Distribution Width 14.5 % (11.6-14.8); White Blood Cell Count 9.8 X10^3/uL (4.5-11.0)
[2024-12-13 07:11] LABS: Alanine Aminotransferase 17 IU/L (<50); Albumin 4.3 g/dL (3.5-5.0); Albumin Globulin Ratio 1.3 (1.0-2.8); Alkaline Phosphatase 67 U/L (38-126); Aspartate Aminotransferase 37 IU/L (17-59); BUN Creatinine Ratio 17.2 (6-22); Bilirubin Total 0.6 mg/dL (0.2-1.3); Blood Urea Nitrogen 23 mg/dL (9-20); Calcium 9.8 mg/dL (8.4-10.2); Carbon Dioxide 29 mmol/L (22-32); Chloride 103 mmol/L (98-107); Estimated Glomerular Filt Rate 53 mL/min (>60); Globulin 3.3 g/dL (1.7-4.1); Glucose 118 mg/dL (80-110); HEMOLYSIS < 15 (0-50); Potassium 4.2 mmol/L (3.4-5.1); Sodium 140 mmol/L (137-145); Total Protein 7.6 g/dL (6.3-8.2)
--- NOTE | 2024-12-13 07:19 | DI.CT.S_ITS ---
PROCEDURE: CT ABDOMEN PELVIS W CON INDICATIONS: diarrhea, abd pain general TECHNIQUE: After the administration of intravenous contrast, axial sections acquired from the lung bases to the pubic symphysis. Coronal and sagittal reformats were performed. For radiation dose reduction, the following was used: automated exposure control, adjustment of mA and/or kV according to patient size. COMPARISON: [facility], CT, CT ABDOMEN PELVIS W CON, 06/13/2024, 7:35. FINDINGS: Image quality: Diagnostic. Lower Chest: No significant findings. ABDOMEN: Liver: No solid mass. Gallbladder: Absent Biliary ducts: Chronic mild biliary prominence post cholecystectomy. Pancreas: No ductal dilation. Spleen: Size is within normal limits. Adrenal Glands: No adrenal nodules. Kidneys and Ureters: There are now 2 stones present in the right ureter. Progression of right hydronephrosis, now marked, with significant cortical volume loss. The stones in the ureter measure approximately 5 mm and 4 mm respectively. There is a degree of obstruction secondary to the stones. There are multiple nonobstructing left renal stones including a large posterior upper pole stone which measures 18 mm in maximum diameter. Stomach and Bowel: Normal colonic caliber, without significant wall thickening. Question remote jejunal anastomosis. Moderately large rectal fecal impaction. Question mild sigmoid colitis. Normal appendix. Peritoneum: No abnormal intraperitoneal fluid. No free air. Ventral Wall: No significant ventral hernia. Abdominal Nodes: No retroperitoneal or mesenteric adenopathy by size criteria. Vessels: Aorta and inferior vena cava are normal in size. PELVIS: Pelvic Organs: Unremarkable. Bladder: No bladder wall thickening, accounting for underdistention. Pelvic Nodes: No enlarged lymph nodes. Miscellaneous: No inguinal hernias are seen. Bones: No aggressive osseous abnormality. Numerous chronic compressions. IMPRESSION: 1. Large rectal fecal impaction. 2. Question mild segmental colitis involving the sigmoid. 3. Sigmoid diverticulosis. 4. There are 2 stones present in the right ureter, obstructive. There is significant interval worsening of right hydronephrosis, now marked, with significant progression of cortical volume loss. 5. Remote cholecystectomy. 6. Numerous chronic compressions. Dictated by: Ministerio Leyva M.D. on 12/13/2024 at 8:24 Approved by: Ministerio Leyva M.D. on 12/13/2024 at 8:32
[2024-12-13] MEDS: OXYCODONE IR 5 MG TABLET PO (07:33)
[2024-12-13 08:03] LABS: Lipase 83 U/L (23-300)
[2024-12-13] MEDS: MINERAL OIL 1 EACH ENEMA PR (09:31)
[2024-12-13 09:59] LABS: RBC Urine 1-5/HPF (0-5/HPF); Urine Volume Low Vol <10mL (spun)
[2024-12-13 10:00] LABS: Bacteria Urine Few (2-10); Culture Indicated Urine Cult Not Indicated; Squamous Epithelial Cell Urine 1-5 /HPF (0-5/HPF); WBC Urine 1-5/HPF (0-5/HPF)
== END 2024-12-13 10:40 | disposition home or self-care (01) ==
PROVIDERS: Emergency Medicine; Emergency Provider Emergency Medicine; PCP Internal Medicine
DX: N20.0 Calculus of kidney (principal); K59.00 Constipation, unspecified; K62.89 Other specified diseases of anus and rectum; M79.605 Pain in left leg; J44.9 Chronic obstructive pulmonary disease, unspecified; I25.2 Old myocardial infarction; R10.84 Generalized abdominal pain
CPT/HCPCS: 36415; 74177; 80053; 81003; 81015; 83690; 85025; 99284; Q9967

== ENCOUNTER 2025-07-16 07:57 | Observation (INO) | payer MEDICARE, SELFPAY ==
[2025-07-08 07:56] VITALS: BMI 24.7
[2025-07-16] VITALS (35 sets, daily range): BP systolic 82–146; BP diastolic 43–84; PULSE 78–104; RESP 14–34; TEMP 36.7–37.6; O2SAT 83–98; BMI 25.8; BMI 25.6
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
--- NOTE | 2025-07-16 08:30 | DI.RAD.S_ITS ---
PROCEDURE: XR CHEST 1V INDICATIONS: Chest Pain TECHNIQUE: One view of the chest was acquired. COMPARISON: [facility], CR, XR CHEST 1V, 07/12/2025, 11:07. FINDINGS: Surgical changes and devices: None. Lungs and pleura: Lungs are clear. No pleural effusions or pneumothorax. Mediastinum: Mediastinal contours appear normal. Heart size is normal. Bones and chest wall: No suspicious bony lesions. Overlying soft tissues appear unremarkable. IMPRESSION: No acute cardiopulmonary abnormality is seen. Dictated by: Ministerio Leyva M.D. on 07/16/2025 at 8:57 Approved by: Ministerio Leyva M.D. on 07/16/2025 at 8:58
--- NOTE | 2025-07-16 08:30 | EKG_ITS ---
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
--- NOTE | 2025-07-16 08:39 | DI.CT.S_ITS ---
PROCEDURE: CT ANGIO CHEST PE PROTOCOL INDICATIONS: chest pain sob TECHNIQUE: After the administration of intravenous contrast, 2 mm thick sections acquired from the pulmonary apices to the posterior costophrenic angles. 3-dimensional maximum intensity projection (MIP) coronal and sagittal reformats were then acquired through the thorax. For radiation dose reduction, the following was used: automated exposure control, adjustment of mA and/or kV according to patient size. COMPARISON: [facility], CT, CT ANGIO CHEST ABDOMEN PELVIS, 04/19/2023, 12:34. [facility], CT, CT ABDOMEN PELVIS W CON, 07/08/2025, 4:23. FINDINGS: Image quality: Diagnostic. Pulmonary arteries: Pulmonary arteries are normal in size, and demonstrate no intraluminal filling defects to suggest central pulmonary embolism. Lower Neck: No enlarged lymph nodes. Thyroid: No thyroid nodules which require sonographic follow up, per consensus guidelines. Axillae: No enlarged lymph nodes. Chest Wall: Unremarkable. Bones: Old T11 compression. Lungs and Pleura: No pneumothorax or pleural effusions. Known longstanding benign right lower lobe pulmonary nodule, measuring approximately 2.1 cm. Minimal right pleural fluid. Moderate biapical centrilobular emphysema. A previous minimal density in the subpleural location of the left upper lobe on image 82 of series 15 of the previous study has significantly progressed, with a solid nodular component now measuring 1.1 x 0.9 cm. This is highly suspicious for a small bronchogenic carcinoma. Reference current image 118 of series 13. Heart: Heart size is normal. No pericardial effusion. Thoracic Vessels: No aortic aneurysm. Mediastinum and Liya: No enlarged lymph nodes. Esophagus: Small hiatal hernia. Mild changes of distal esophagitis. Upper Abdomen: Remote cholecystectomy. Marked chronic right hydronephrosis. IMPRESSION: 1. No acute pulmonary emboli. 2. No acute pulmonary infiltrates. 3. Moderate centrilobular emphysema. 4. 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 5. Longstanding known marked right hydronephrosis. 6. Benign right basilar pulmonary nodule measuring approximately 2.1 cm. 7. Findings suggesting distal esophagitis Comment: Recommend PET-CT. Dictated by: Ministerio Leyva M.D. on 07/16/2025 at 9:22 Approved by: Ministerio Leyva M.D. on 07/16/2025 at 9:33
[2025-07-16 08:40] LABS: Add Manual Diff / Slide Review NO; Hematocrit 39.3 % (41-53); Hemoglobin 13.6 g/dL (13.5-17.5); Lymphocytes Absolute Auto 800 /uL (1100-4500); Mean Corpuscular HGB Conc 34.6 % (30-36); Mean Corpuscular Hemoglobin 32.2 PG (26-34); Mean Corpuscular Volume 93.1 fL (80-100); Platelet Count 361 X10^3/uL (150-400)
--- NOTE | 2025-07-16 08:44 | DI.CT.S_ITS ---
PROCEDURE: CT PEL WO CON INDICATIONS: fall/trauma TECHNIQUE: Noncontrast 3 mm axial sections acquired through the bony pelvis, with coronal and sagittal reformatting. COMPARISON: [facility], CT, CT ABDOMEN PELVIS W CON, 07/08/2025, 4:23. FINDINGS: Image quality: Excellent. Bones: Old compressions of L3, L4, and L5. There are probable subtle bilateral sacral insufficiency fractures which are unchanged from the previous study, likely subacute. There is canal stenosis at L3-L4. Soft tissues: Marked chronic right hydronephrosis. Minimal residual cortical tissue present. Distended bladder. Bladder has a thin wall. IMPRESSION: 1. Severe osteoporosis with multiple old compression fractures. 2. Subtle probable bilateral sacral insufficiency fractures are likely present, unchanged from the previous study, likely subacute. 3. Distended bladder. 4. No acute pelvic fractures or hip fractures. 5. Canal stenosis at L3-L4. 6. Longstanding marked right hydronephrosis. Dictated by: Ministerio Leyva M.D. on 07/16/2025 at 9:33 Approved by: Ministerio Leyva M.D. on 07/16/2025 at 9:37
--- NOTE | 2025-07-16 08:44 | DI.CT.S_ITS ---
PROCEDURE: CT HEAD/BRAIN WO CON INDICATIONS: fall/trauma TECHNIQUE: Noncontrast 4.5 mm thick angled axial sections acquired from the foramen magnum to the vertex, with coronal and sagittal reformats. For radiation dose reduction, the following was used: automated exposure control, adjustment of mA and/or kV according to patient size. COMPARISON: [facility], CT, CT HEAD/BRAIN WO CON, 10/18/2021, 8:44. FINDINGS: Image quality: Diagnostic. CSF spaces: Basal cisterns are patent. No extra-axial fluid collections. The ventricles are symmetric in size and shape. Brain: No intracranial bleeds or mass effect. There is cerebral volume loss, with resultant ventricular and sulcal prominence. There are periventricular and deep white matter chronic small vessel ischemic changes. There is intracranial internal carotid artery atherosclerosis. Skull and face: Calvarium and visualized facial bones appear intact, without suspicious lesions. Sinuses: Visualized sinuses and mastoids are clear. IMPRESSION: No acute intracranial pathology. Dictated by: Ministerio Leyva M.D. on 07/16/2025 at 9:17 Approved by: Ministerio Leyva M.D. on 07/16/2025 at 9:18
[2025-07-16 08:47] LABS: INR 1.0 (0.9-1.3); Prothrombin Time 10.8 SECONDS (9.4-12.5)
[2025-07-16 08:49] LABS: PTT Partial Thromboplastin Tim 29 SECONDS (25.1-36.5)
[2025-07-16 08:51] LABS: Alanine Aminotransferase 12 IU/L (<50); Albumin 3.7 g/dL (3.5-5.0); Albumin Globulin Ratio 1.2 (1.0-2.8); Alkaline Phosphatase 60 U/L (38-126); Blood Urea Nitrogen 17 mg/dL (9-20); Calcium 8.8 mg/dL (8.4-10.2); Carbon Dioxide 25 mmol/L (22-32); Chloride 105 mmol/L (98-107); Creatine Kinase 29 U/L (55-170); Estimated Glomerular Filt Rate > 60 mL/min (>60); Globulin 3.2 g/dL (1.7-4.1); Glucose 117 mg/dL (70-99); HEMOLYSIS 26 (0-50); Lipase 82 U/L (23-300); Magnesium 1.9 mg/dL (1.6-2.3); Potassium 4.3 mmol/L (3.4-5.1); Sodium 138 mmol/L (137-145); Total Protein 6.9 g/dL (6.3-8.2)
[2025-07-16 09:03] LABS: NT-proBNP (BNP-Adult 18+) 1660 pg/mL (<450); Troponin I < 0.012 ng/mL (0.01-0.034)
[2025-07-16] MEDS: METOPROLOL TARTRATE 5 MG/5 ML INJ IV (09:12)
--- NOTE | 2025-07-16 09:28 | PC.NURSE ---
Pt laying back in gurney. Denies pain. Reports feeling weak. Unknown when symptoms started. Believes that he started feeling weak this morning. Removed from 2L NC to RA. Desats to 88% on RA. Replaced NC at 2 L.
[2025-07-16] MEDS: SODIUM CHLORIDE 0.9% 500 ML 1000 ML IV (09:38)
--- NOTE | 2025-07-16 09:40 | PC.NURSE ---
BP 86/44. MD aware, new orders received and implemented.
--- NOTE | 2025-07-16 10:37 | EKG_ITS ---
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
[2025-07-16 10:45] LABS: Troponin I < 0.012 ng/mL (0.01-0.034)
[2025-07-16 12:38] LABS: Procalcitonin 0.072 ng/mL (<0.5)
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
[2025-07-16] MEDS: APIXABAN 5 MG TABLET PO (17:26)
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
--- NOTE | 2025-07-16 17:55 | PC.NURSE ---
Pt arrived from Ed at 1250 Pt presents w/ some forgetfulness Denies any discomfort at this time Tele placed as per orders. NSR per ICU staff. ] Pt oriented to room & call system. Call light w/in reach, bed alarm on for pt safety. Continue w/plan of care.
[2025-07-16] MEDS: ATORVASTATIN 20 MG TABLET 80 MG PO (20:36)
[2025-07-16] MEDS: ACETAMINOPHEN 325 MG TABLET 650 MG PO (20:36)
[2025-07-16] MEDS: CYCLOBENZAPRINE 10 MG TABLET 5 MG PO (20:36)
[2025-07-16] MEDS: AMITRIPTYLINE 25 MG TABLET PO (20:37)
[2025-07-16] MEDS: GABAPENTIN 300 MG CAPSULE PO (20:37)
[2025-07-17 04:13] VITALS: BP 134/57; PULSE 77; RESP 16; TEMP 36.7; O2SAT 90
[2025-07-17 05:37] LABS: Add Manual Diff / Slide Review NO; Hematocrit 34.3 % (41-53); Hemoglobin 11.8 g/dL (13.5-17.5); Lymphocytes Absolute Auto 1400 /uL (1100-4500); Mean Corpuscular HGB Conc 34.5 % (30-36); Mean Corpuscular Hemoglobin 32.5 PG (26-34); Mean Corpuscular Volume 94.1 fL (80-100); Platelet Count 274 X10^3/uL (150-400)
[2025-07-17 05:44] LABS: Blood Urea Nitrogen 17 mg/dL (9-20); Calcium 8.2 mg/dL (8.4-10.2); Carbon Dioxide 28 mmol/L (22-32); Chloride 104 mmol/L (98-107); Estimated Glomerular Filt Rate > 60 mL/min (>60); Glucose 99 mg/dL (70-99); HEMOLYSIS 16 (0-50); Potassium 4.1 mmol/L (3.4-5.1); Sodium 137 mmol/L (137-145)
[2025-07-17 05:55] LABS: Troponin I 0.014 ng/mL (0.01-0.034)
[2025-07-17] MEDS: PANTOPRAZOLE DR 40 MG TABLET PO (06:19)
[2025-07-17] MEDS: ACETAMINOPHEN 325 MG TABLET 650 MG PO (06:20)
[2025-07-17 08:00] VITALS: BP 158/69; PULSE 94; RESP 18; TEMP 36.8; O2SAT 92
--- NOTE | 2025-07-17 08:35 | DI.ECHO.S_ITS ---
:Name: MICHAEL JORDAN? Study Date: 07/17/2025? Height: 68 in? : :Hospital ?? ?ReadingLocation:? Weight: 170 lb : : ?Gender: Male?BSA: 1.9 m2??? : :: 1945? Age: 80 yrs? BP: 158/69 mmHg: :Reason For Study: Atrial fibrillation?: :Ordering Physician: CARMENCITA OROSCO??? Performed By: Mercedes Escamilla? : :Referring: CARMENCITA OROSCO?: + + Interpretation Summary The left ventricle is grossly normal size. The left ventricular ejection fraction is normal. The ejection fraction is estimated to be 60-65%. Borderline right ventricular enlargement. The right ventricular systolicfunction is normal. No significant valvular pathology seen. There is aortic root sclerosis/calcification. The IVC is of normal diameter and collapses greater than 50% with a sniff. This suggests a low right atrial pressure of 3 mm Hg. Procedure: ?A two-dimensional transthoracic echocardiogram with color flow and Doppler was performed. The study quality was technically adequate. There is no prior echocardiogram noted for this patient. The heart rate ranged between 68-73 bpm during the study. The patient was in normal sinus rhythm during the exam. Left Ventricle: ?The left ventricle is grossly normal size.Proximal septal thickening is noted. There is no thrombus. The ejection fraction is estimated to be 60-65%. The left ventricular ejection fraction is normal.There are no focal wall motion abnormalities. MV E/A: 0.95 Med Peak E' Bertram: 6.9 cm/sec E/E' med: 13.6. Right Ventricle: ?Borderline right ventricular enlargement. A moderator band is seen in the right ventricle. The right ventricular systolic function is normal. Atria: ?The left atrium is mildly dilated. Right a trial size is normal. The interatrial septum grossly appears intact with no obvious evidence for an atrial septal defect. Mitral Valve: ?There is mild mitral annular calcification. The mitral valve leaflets are mildly calcified. No significant mitral valve stenosis. There is trace mitral regurgitation. Aortic Valve:? ?The aortic valve is trileaflet. The aortic valve opens well. There is discrete nodular thickening of the non- coronary cusp. There is mild aortic valve sclerosis. There is no aortic valve stenosis. No aortic regurgitation is present. Tricuspid Valve:? ?The tricuspid valve leaflets are thin and pliable. There is trace tricuspid regurgitation. Pulmonary artery pressures cannot be estimated because of the lack of a measurable TR jet velocity. Pulmonic Valve: ?The pulmonic valve is not well visualized. There is no pulmonic valvular regurgitation. Great Vessels:? ?The aortic root is normal size. There is aortic root sclerosis/calcification. The ascending aorta is normal in size. The aortic arch is normal in size. The IVC is of normal diameter and collapses greater than 50% with a sniff. This suggests a low right atrial pressure of 3 mm Hg. Pericardium/ Pleura ?There is no pericardial effusion. There is an anterior echo-free space consistent with a fat pad. There is no pleural effusion. MMode/2D Measurements & Calculations LVIDd: 4.0 cm?LVOT diam: 2.2 cm LVIDs: 2.2 cm?Ao root diam: 3.6 cm FS: 44.5 %? asc Aorta Diam: 3.6 cm EPSS: 0.55 cm? Ao Arch Diam (Prox Trans): 2.8 cm IVSd: 0.93 cm LVPWd: 0.99 cm LV vilchis. diameter/BSA (cm/m^2): 2.1 LV sys. diameter/BSA (cm/m^2):1.2 LA A2 area: 18.9 cm2?RA long axis: 5.9 cm LA A4 area: 24.3 cm2?RA area: 17.1 cm2 LA length (vol): 5.9 cm? RA vol: 42.0 ml LA vol: 65.8 ml? RA : 22.0 ml/m2 LA vol index: 34.5 ml/m2?IVC diam: 1.9 cm RVD1 (basal): 4.3 cm TAPSE: 2.6 cm Doppler Measurements & Calculations Ao V2 max: 125.7 cm/sec? LVOT Max Bertram: 97.9 cm/sec Ao V2 mean: 88.5 cm/sec?LV V1 max P.8 mmHg Ao max P.3 mmHg?LV V1 VTI: 22.0 cm Ao mean P.5 mmHg? NOLA(I,D): 3.1 cm2 Ao V2 VTI: 28.3 cm?[place](V,D): 3.1 cm2 sev ratio: 0.78 [place] indexed to BSA (cm^2/m^2): 1.6 MV E max bertram: 93.0 cm/sec?TR max bertram: 255.4 cm/sec MV A max bertram: 97.9 cm/sec?TR max P.1 mmHg MV E/A: 0.95? PA V2 max: 107.2 cm/sec Med Peak E' Bertram: 6.9 cm/sec?PA V2 mean: 65.4 cm/sec E/E' med: 13.6? PA mean P.1 mmHg Lat Peak E' Bertram: 9.1 cm/sec?PA pr(Accel): 34.0 mmHg E/E' lat: 10.2 E/e' average:11.9 MV dec time: 0.23 sec SV(LVOT): 87.5 ml Reading Physician:01:19 PM
[2025-07-17] MEDS: APIXABAN 5 MG TABLET PO (09:40)
[2025-07-17] MEDS: TAMSULOSIN 0.4 MG CAPSULE PO (09:40)
[2025-07-17] MEDS: TORSEMIDE 10 MG TABLET PO (09:40)
[2025-07-17] MEDS: SPIRONOLACTONE 25 MG TABLET PO (09:40)
[2025-07-17] MEDS: GABAPENTIN 300 MG CAPSULE PO (09:40)
[2025-07-17 12:00] VITALS: BP 139/62; PULSE 77; RESP 16; TEMP 36.4; O2SAT 92
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
[2025-07-17 12:15] LABS: Appearance Urine UA TURBID; Bilirubin Urine UA NEGATIVE (NEGATIVE); Color Urine UA YELLOW; Glucose Urine UA NEGATIVE (Negative); Ketones Urine UA NEGATIVE (NEGATIVE); Leukocyte Esterase Urine UA NEGATIVE (NEGATIVE); Nitrite Urine UA NEGATIVE (Negative); Occult Blood Urine UA 3+ (Negative); Protein Urine UA TRACE (Negative); Specific Gravity Urine UA 1.025 (1.000-1.035); Urobilinogen Urine UA 0.2 E.U./dL (0.2); pH Urine UA 5.5 (4.5-8.0)
--- NOTE | 2025-07-17 12:15 | CM.DANOTE ---
DC Note Patient is discharging home today. Patient discussed in multidisciplinary rounds- No needs anticipated from this medical social worker. Will plan to remain available for discharge coordination in case this changes. 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 Yes Advance Directives No on File History Provided By Patient,Medical Record Prior Living House Arrangements Household Members spouse Type of Drives own vehicle transporation used prior to admit Independent with ADL Yes 's Is patient alert and Yes oriented? 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
[2025-07-17 12:33] LABS: Culture Indicated Urine Cult Not Indicated
[2025-07-17] MEDS: METOPROLOL ER 25 MG TABLET PO (12:51)
--- NOTE | 2025-07-17 14:32 | PC.NURSE ---
Patient was extremely eager to leave today. Patient had multiple phone calls with his trying to arrange transportation home and fiber picker of his medications. He had one friend he thought would be able to get him but could not get ahold of him. Initially prescriptions were sent electronically to [facility] in [facility], but patient wanted them for fiber picker in [place]. Dr. Cramer was able to resend. Patient states his is going to call the pharmacy and pay for his prescriptions (he did not bring his wallet) and then take a taxi from hospital to [facility] and then to home. Patient has been arranging this over the phone with his , discharge instructions reviewed with patient and he states understanding. Patient taken out via wheelchair in his robe by float nurse.
== END 2025-07-17 13:25 | disposition home or self-care (01) ==
LOC: ED 11:12 → AC 12:17
PROVIDERS: Admitting Provider Internal Medicine; Emergency Provider Family Medicine; PCP Internal Medicine; Referring Provider Family Medicine; Visit Provider Internal Medicine
DX: I48.91 Unspecified atrial fibrillation (principal); R53.1 Weakness; R42 Dizziness and giddiness; W18.30XA Fall on same level, unspecified, initial encounter; J44.9 Chronic obstructive pulmonary disease, unspecified; I11.0 Hypertensive heart disease with heart failure; I50.20 Unspecified systolic (congestive) heart failure; I25.10 Atherosclerotic heart disease of native coronary artery without angina pectoris; G89.29 Other chronic pain; M25.552 Pain in left hip; R91.8 Other nonspecific abnormal finding of lung field; F11.20 Opioid dependence, uncomplicated; I25.2 Old myocardial infarction; Z87.891 Personal history of nicotine dependence
CPT/HCPCS: 36415; 70450; 71045; 71275; 72192; 80048; 80053; 81001; 82550; 82962; 83690; 83735; 83880; 84145; 84484; 85025; 85610; 85730; 93005; 93306; 96374; 99285; G0378; Q9967